=== PATIENT | female | born 1970 | race Two or more races ===

== ENCOUNTER 2020-03-14 11:20 | Outpatient (REF) | payer OTHER, SELFPAY ==
[2020-03-14 12:01] LABS: Basophils Percent Auto 0.3 % (0-2); Eosinophils Absolute Auto 0.1 X10*3/uL (0.0-0.4); Eosinophils Percent Auto 1.1 % (0-4); Hematocrit 41.1 % (37-47); Hemoglobin 12.6 g/dl (12.0-16.0); Imm Gran Abs Auto 0.04 X10*3/uL (0.00-0.03); Imm Gran Pct Auto 0.5 % (0.0-0.4); Lymphocytes Absolute Auto 2.2 X10*3/uL (1.2-4.9); MANUAL DIFF FLAG NO; Mean Corpuscular HGB Conc 30.7 g/dl (31.0-35.0); Mean Corpuscular Hemoglobin 25.6 pg (27.0-33.0); Mean Corpuscular Volume 83.5 fL (80-98); Mean Platelet Volume 10.8 fL (9.4-12.3); Monocytes Absolute Auto 0.5 X10*3/uL (0.1-1.2); Monocytes Percent Auto 5.9 % (2-11); Neutrophils Percent Auto 67.2 % (45-73); Platelet Count 283 X10*3/uL (160-400); Red Blood Count 4.92 X10*6/uL (4.20-5.50); Red Cell Distribution Width 14.6 % (11.0-16.0); White Blood Count 8.9 X10*3/uL (4.8-10.8)
[2020-03-14 12:27] LABS: Alanine Aminotransferase 16 U/L (0-31); Albumin Level 3.8 g/dL (3.5-5.0); Alkaline Phosphatase 124 U/L (39-117); Anion Gap 10 (12-20); Aspartate Amino Transferase 16 U/L (5-31); Bilirubin Total 0.3 mg/dL (0.0-1.0); Blood Urea Nitrogen 12 mg/dL (9-16); Calcium 8.9 mg/dL (8.4-10.2); Carbon Dioxide 29 mmol/L (22-29); Chloride 104 mmol/L (96-108); Cholesterol 177 mg/dL; Estimated Glomerular Filt Rate > 60; Glucose Random 119 mg/dL (60-115); HDL Cholesterol 49 mg/dL; LDL Cholesterol Calculated 108 mg/dl; Potassium 3.9 mmol/l (3.3-5.1); Sodium 139 mmol/L (135-145); Total Protein 6.8 g/dL (6.5-8.0); Triglycerides 104 mg/dL
[2020-03-14 12:49] LABS: Ferritin 17 ng/mL (10-250); Thyroid Stimulating Hormone 1.36 uIU/mL (0.32-4.0)
== END 2020-03-14 11:21 | disposition home or self-care (01) ==
LOC: HO.LAB 11:20
PROVIDERS: PCP Internal Medicine; Visit Provider Internal Medicine
DX: Z00.00 Encounter for general adult medical examination without abnormal findings (principal); D50.9 Iron deficiency anemia, unspecified; F32.89 Other specified depressive episodes; G47.33 Obstructive sleep apnea (adult) (pediatric); N95.1 Menopausal and female climacteric states
CPT/HCPCS: 36415; 80053; 80061; 82728; 84443; 85025

== ENCOUNTER 2020-07-25 13:11 | Outpatient (REF) | payer OTHER, SELFPAY ==
[2020-07-25 14:20] LABS: MANUAL DIFF FLAG NO
[2020-07-25 14:33] LABS: Basophils Percent Auto 0.4 % (0-2); Eosinophils Absolute Auto 0.1 X10*3/uL (0.0-0.4); Eosinophils Percent Auto 0.9 % (0-4); Hematocrit 41.3 % (37-47); Hemoglobin 12.8 g/dl (12.0-16.0); Imm Gran Abs Auto 0.04 X10*3/uL (0.00-0.03); Imm Gran Pct Auto 0.4 % (0.0-0.4); Lymphocytes Absolute Auto 2.7 X10*3/uL (1.2-4.9); Lymphocytes Percent Auto 26.9 % (20-40); Mean Corpuscular Hemoglobin 26.4 pg (27.0-33.0); Mean Corpuscular Volume 85.2 fL (80-98); Mean Platelet Volume 11.2 fL (9.4-12.3); Monocytes Absolute Auto 0.7 X10*3/uL (0.1-1.2); Monocytes Percent Auto 6.9 % (2-11); Neutrophils Absolute Auto 6.4 X10*3/uL (2.0-8.3); Neutrophils Percent Auto 64.5 % (45-73); Platelet Count 276 X10*3/uL (160-400); Red Blood Count 4.85 X10*6/uL (4.20-5.50); Red Cell Distribution Width 14.6 % (11.0-16.0); White Blood Count 9.9 X10*3/uL (4.8-10.8)
[2020-07-25 14:48] LABS: Alanine Aminotransferase 25 U/L (0-31); Albumin Level 3.9 g/dL (3.5-5.0); Alkaline Phosphatase 118 U/L (39-117); Anion Gap 9 (12-20); Aspartate Amino Transferase 22 U/L (5-31); Bilirubin Total 0.5 mg/dL (0.0-1.0); Blood Urea Nitrogen 9 mg/dL (9-16); C Reactive Protein 0.89 mg/dL (< or = 0.50); Calcium 8.6 mg/dL (8.4-10.2); Carbon Dioxide 28 mmol/L (22-29); Chloride 107 mmol/L (96-108); Estimated Glomerular Filt Rate > 60; Glucose Random 114 mg/dL (60-115); Potassium 3.7 mmol/L (3.3-5.1); Sodium 140 mmol/L (135-145); Total Protein 6.7 g/dL (6.5-8.0)
[2020-07-25 15:20] LABS: Erythrocyte Sedimentation Rate 9 MM/HR (0-20)
== END 2020-07-25 13:12 | disposition home or self-care (01) ==
LOC: HO.LAB 13:11
PROVIDERS: PCP Internal Medicine; Visit Provider Student in an Organized Health Care Education/Training Program
DX: M79.7 Fibromyalgia (principal); M25.50 Pain in unspecified joint; K51.90 Ulcerative colitis, unspecified, without complications; G56.03 Carpal tunnel syndrome, bilateral upper limbs; Z79.899 Other long term (current) drug therapy
CPT/HCPCS: 36415; 80053; 85025; 85652; 86140; 99212

== ENCOUNTER 2020-08-03 13:37 | Outpatient (REF) | payer OTHER, SELFPAY ==
--- NOTE | ~2020-08-03 | XR_ITS ---
EXAMINATION: XR HAND/WRIST, LEFT XR HAND/WRIST, RIGHT CLINICAL INFORMATION: Carpal tunnel syndrome. COMPARISON: None TECHNIQUE: 4 views of the right hand/wrist 4 views of the left hand/wrist. FINDINGS: Right hand/wrist: No fracture or dislocation. The carpal rows are well aligned. Joint spaces are maintained. Evidence of previous ulnar styloid fracture with corticated ossification at the tip of the ulnar styloid. Small osteophytes at the distal interphalangeal joints of the second, third, and fifth digits. Left hand/wrist: No fracture or dislocation. Alignment is anatomic. The carpal rows are well aligned. Joint spaces are maintained. Small marginal osteophytes at the distal interphalangeal joints of the second, fourth, and fifth digits. The soft tissues appear unremarkable. XR/XR hand wrist RT IMPRESSION: Unremarkable appearance of the left wrist. Evidence of prior ulnar styloid fracture of the right wrist. Mild degenerative changes of the interphalangeal joints bilaterally.
--- NOTE | ~2020-08-03 | XR_ITS ---
EXAMINATION: XR HAND/WRIST, LEFT XR HAND/WRIST, RIGHT CLINICAL INFORMATION: Carpal tunnel syndrome. COMPARISON: None TECHNIQUE: 4 views of the right hand/wrist 4 views of the left hand/wrist. FINDINGS: Right hand/wrist: No fracture or dislocation. The carpal rows are well aligned. Joint spaces are maintained. Evidence of previous ulnar styloid fracture with corticated ossification at the tip of the ulnar styloid. Small osteophytes at the distal interphalangeal joints of the second, third, and fifth digits. Left hand/wrist: No fracture or dislocation. Alignment is anatomic. The carpal rows are well aligned. Joint spaces are maintained. Small marginal osteophytes at the distal interphalangeal joints of the second, fourth, and fifth digits. The soft tissues appear unremarkable. XR/XR hand wrist LT IMPRESSION: Unremarkable appearance of the left wrist. Evidence of prior ulnar styloid fracture of the right wrist. Mild degenerative changes of the interphalangeal joints bilaterally.
== END 2020-08-03 13:38 | disposition home or self-care (01) ==
LOC: HO.XRAY 13:37
PROVIDERS: PCP Internal Medicine; Visit Provider Student in an Organized Health Care Education/Training Program
DX: G56.03 Carpal tunnel syndrome, bilateral upper limbs (principal)
CPT/HCPCS: 73110; 73130

== ENCOUNTER 2021-02-13 10:19 | Outpatient (REF) | payer OTHER, SELFPAY ==
[2021-02-13 11:23] LABS: Estimated Average Glucose 120 mg/dL; Hemoglobin A1c % 5.8 %
[2021-02-13 12:23] LABS: Alanine Aminotransferase 24 U/L (0-31); Albumin Level 3.9 g/dL (3.5-5.0); Alkaline Phosphatase 119 U/L (39-117); Anion Gap 10 (12-20); Aspartate Amino Transferase 29 U/L (5-31); Bilirubin Total 0.5 mg/dL (0.0-1.0); Blood Urea Nitrogen 9 mg/dL (9-16); Calcium 8.9 mg/dL (8.4-10.2); Carbon Dioxide 27 mmol/L (22-29); Chloride 106 mmol/L (96-108); Estimated Glomerular Filt Rate > 60; Glucose Random 98 mg/dL (60-115); Potassium 4.2 mmol/L (3.3-5.1); Sodium 139 mmol/L (135-145); Total Protein 6.8 g/dL (6.5-8.0)
== END 2021-02-13 10:20 | disposition home or self-care (01) ==
LOC: HO.LAB 10:19
PROVIDERS: PCP Internal Medicine; Visit Provider Internal Medicine
DX: F33.42 Major depressive disorder, recurrent, in full remission (principal); G47.33 Obstructive sleep apnea (adult) (pediatric); J45.902 Unspecified asthma with status asthmaticus; R73.01 Impaired fasting glucose
CPT/HCPCS: 36415; 80053; 83036

== ENCOUNTER 2021-03-07 08:19 | Day surgery (SDC) | payer OTHER, SELFPAY ==
[2021-03-01 11:23] VITALS: BMI 38.2
--- NOTE | 2021-03-06 08:58 | HO.ANESPROP2 ---
Documented by User: Dina Lunsford NP 03/06/21 08:59 HPI - Anesthesia Eval Consult details Narrative: 50yo F for Upper Endoscopy and Colonoscopy PMFSH Active Problems Active Problems: All Active Problems (Updated 03/01/21 @ 09:45 by Emily Zamora RN) Bilateral carpal tunnel syndrome (Acute) Fibromyalgia (Acute) Ulcerative colitis (Acute) Past Medical History Medical History Asthma Fibromyalgia GERD (gastroesophageal reflux disease) Sleep apnea Ulcerative colitis Surgical History Surgical History H/O colonoscopy History of Social History Social History Alcohol intake: current Alcohol intake frequency: does not drink Alcohol type: wine Patient Tobacco Use Status: Tobacco use Unknown Use of substances other than those prescribed or required for medical reasons: No Advance Directives: No Advance Directives Information Provided: Yes (informational brochure mailed) Advance Directives on File: No Meds Allergies Allergy/AdvReac Type Severity Reaction Status Date / Time shrimp Allergy Intermediate SWELLING Verified 07/25/20 13:26 cat dander [cats] Allergy Unknown Unknown Verified 03/01/21 09:41 pollen extracts Allergy Unknown Unknown Verified 03/01/21 09:41 walnut Allergy Unknown Unknown Verified 03/01/21 09:41 dog dander [dogs] AdvReac Unknown Unknown Verified 03/01/21 09:41 Home Medications Medication Instructions Recorded Confirmed Last Taken Type albuterol sulfate 90 mcg/actuation 2 puff INHALATION Q6H PRN 07/25/20 07/25/20 Unknown History aerosol inhaler (ProAir HFA) azathioprine 50 mg tablet 50 mg PO DAILY 07/25/20 07/25/20 Unknown History cholecalciferol (vitamin D3) 1,250 1,250 mcg PO QWEEK 07/25/20 07/25/20 Unknown History mcg (50,000 unit) capsule fluticasone 500 mcg-salmeterol 50 1 inh INHALATION BID 07/25/20 07/25/20 Unknown History mcg/dose blistr powdr for inhalation (Advair Diskus) fluticasone propionate 50 2 spray INTRANASAL DAILY 07/25/20 07/25/20 Unknown History mcg/actuation nasal spray,suspension (Flonase Allergy Relief) loratadine 10 mg tablet (Allergy 10 mg PO DAILY 07/25/20 07/25/20 Unknown History Relief (loratadine)) mesalamine 800 mg tablet,delayed 1,600 mg PO TID 07/25/20 07/25/20 Unknown History release (Asacol HD) montelukast 10 mg tablet 10 mg PO DAILY 07/25/20 07/25/20 Unknown History naproxen 500 mg tablet (Naprosyn) 500 mg PO BID 07/25/20 07/25/20 Unknown History omeprazole 20 mg capsule,delayed 20 mg PO BID 07/25/20 07/25/20 Unknown History release losartan 50 mg-hydrochlorothiazide 1 tab PO DAILY 03/01/21 03/01/21 Unknown History 12.5 mg tablet venlafaxine 75 mg capsule,extended 75 mg PO DAILY 03/01/21 03/01/21 Unknown History release 24 hr Exam Exam Date and Time: March 06, 2021 0858 Height,Weight and Vital Signs: Height 5 ft 4.5 in Weight 102.512 kg Pertinent Lab Results Pertinent Lab Results: Laboratory Tests 07/25/20 02/13/21 13:50 10:30 WBC 9.9 Hgb 12.8 Hct 41.3 Plt Count 276 Sodium 139 Potassium 4.2 Chloride 106 Carbon Dioxide 27 BUN 9 Creatinine 0.73 Assessment and Plan Assessment Anesthesia Assessment: Chart Reviewed Documented by User: Marilyn Spencer MD 03/07/21 10:17 [facility] Past Medical History Medical History Asthma Fibromyalgia GERD (gastroesophageal reflux disease) Sleep apnea Ulcerative colitis Surgical History Surgical History H/O colonoscopy History of History of Problems with Anesthesia: No Social History Social History Alcohol intake: current Alcohol intake frequency: does not drink Alcohol type: wine Patient Tobacco Use Status: Tobacco use Unknown Use of substances other than those prescribed or required for medical reasons: No Advance Directives: No Advance Directives Information Provided: Yes (informational brochure mailed) Advance Directives on File: No Meds Allergies Allergy/AdvReac Type Severity Reaction Status Date / Time shrimp Allergy Intermediate SWELLING Verified 07/25/20 13:26 cat dander [cats] Allergy Unknown Unknown Verified 03/01/21 09:41 pollen extracts Allergy Unknown Unknown Verified 03/01/21 09:41 walnut Allergy Unknown Unknown Verified 03/01/21 09:41 dog dander [dogs] AdvReac Unknown Unknown Verified 03/01/21 09:41 Home Medications Medication Instructions Recorded Confirmed Last Taken Type albuterol sulfate 90 mcg/actuation 2 puff INHALATION Q6H PRN 07/25/20 07/25/20 Unknown History aerosol inhaler (ProAir HFA) azathioprine 50 mg tablet 50 mg PO DAILY 07/25/20 07/25/20 Unknown History cholecalciferol (vitamin D3) 1,250 1,250 mcg PO QWEEK 07/25/20 07/25/20 Unknown History mcg (50,000 unit) capsule fluticasone 500 mcg-salmeterol 50 1 inh INHALATION BID 07/25/20 07/25/20 Unknown History mcg/dose blistr powdr for inhalation (Advair Diskus) fluticasone propionate 50 2 spray INTRANASAL DAILY 07/25/20 07/25/20 Unknown History mcg/actuation nasal spray,suspension (Flonase Allergy Relief) loratadine 10 mg tablet (Allergy 10 mg PO DAILY 07/25/20 07/25/20 Unknown History Relief (loratadine)) mesalamine 800 mg tablet,delayed 1,600 mg PO TID 07/25/20 07/25/20 Unknown History release (Asacol HD) montelukast 10 mg tablet 10 mg PO DAILY 07/25/20 07/25/20 Unknown History naproxen 500 mg tablet (Naprosyn) 500 mg PO BID 07/25/20 07/25/20 Unknown History omeprazole 20 mg capsule,delayed 20 mg PO BID 07/25/20 07/25/20 Unknown History release losartan 50 mg-hydrochlorothiazide 1 tab PO DAILY 03/01/21 03/01/21 Unknown History 12.5 mg tablet venlafaxine 75 mg capsule,extended 75 mg PO DAILY 03/01/21 03/01/21 Unknown History release 24 hr Exam Airway Mallampati Class: II TM Dist: >3cm Neck ROM: Full Loose/Missing/Broken Teeth: No Heart: RRR Lungs: CTA Assessment and Plan Assessment Anesthesia Assessment: Anesthesia Plan Discussed Final Anesthetic Review History of Problems with Anesthesia: No NPO: Yes ASA Class: III Final Preanesthetic Review: Meds/Allgs Chart Reviewed, Consent Obtained/Reviewed and Anes Risks/Benef Reviewed Patient Risk: Intermediate Procedure Risk: Intermediate Anesthetic Plan Anesthetic Plan: MAC: Disposition: Standard PACU
[2021-03-07 09:24] VITALS: BP 149/81; PULSE 77; RESP 16; TEMP 36.4; O2SAT 98
[2021-03-07 09:29] LABS: UPreg QC Valid YES; Urine Pregnancy NEGATIVE (NEGATIVE)
[2021-03-07] MEDS: Lactated Ringers 1,000 ML 100 ML IVCONT (09:38)
[2021-03-07 11:05] VITALS: BP 131/72; PULSE 72; RESP 18; TEMP 36.9; O2SAT 97
--- NOTE | 2021-03-07 11:09 | P.BOP_ITS ---
Brief Operative Note Date of Service: 03/07/21 Pre-op diagnosis: GERD, Screening, Ulcerative colitis Post-op diagnosis: other (Hiatal hernia, Colon polyp at 40cm, Ulcerative colitis) Procedure: EGD, Colonoscopy to the cecum with biopsies, hot snare polypectomy at 40cm with placement of a Resolution clip Surgeon: Kenney Harris Anesthesia: MAC Was an [employer] used for this Procedure?: No Estimated blood loss (mL): 4.0 Pathology: other (A. Ascending colon B. Transverse colon C. Descending colon D. Polyp at 40cm E. Sigmoid colon F. Rectum) Condition: stable Disposition: PACU
[2021-03-07 11:20] VITALS: BP 131/72; PULSE 72; RESP 18; TEMP 36.9; O2SAT 97
--- NOTE | 2021-03-07 19:23 | OP_ITS ---
SURGEON: Kenney Harris MD INDICATIONS: The patient presents for evaluation of gastroesophageal reflux and ulcerative colitis, and colorectal cancer screening. Full consent obtained from her for this, including risks of bleeding and perforation. PREOPERATIVE DIAGNOSIS: POSTOPERATIVE DIAGNOSIS: PROCEDURE PERFORMED: Esophagogastroduodenoscopy and colonoscopy to the cecum with multiple biopsies, snare polypectomy, and placement of a resolution clip on the polypectomy site. ESTIMATED BLOOD LOSS: COMPLICATIONS: ANESTHESIA: Monitored anesthesia care. ASSISTANTS: SPECIMENS: PREOPERATIVE DIAGNOSES: Gastroesophageal reflux, ulcerative colitis, colorectal cancer screening. POSTOPERATIVE DIAGNOSES: Gastroesophageal reflux, ulcerative colitis, colorectal cancer screening, small hiatal hernia, probable inflammatory colon polyp, rule out dysplasia, internal hemorrhoids. DESCRIPTION OF PROCEDURE: The patient was placed in the left lateral decubitus position. The Olympus video gastroscope was passed in the posterior oropharynx and upper esophagus under direct vision. The scope was passed slowly into the distal esophagus. The gastroesophageal junction appeared at 35 cm. There was no sign of any esophagitis nor Pichardo's mucosa. The scope entered into the stomach. There was a small hiatal hernia. The scope was advanced to the pylorus. The duodenum was cannulated to the descending portion. The duodenum including the bulb appeared normal without mass or ulceration. The scope was withdrawn back into the stomach. The gastric antrum and body appeared normal with good peristalsis. The scope was retroflexed visualizing the proximal stomach carefully, which appeared normal, without any sign of mass or ulceration. The scope was straightened out and withdrawn back into the esophagus. The esophageal mucosa appeared normal. The scope was withdrawn from the patient. She was turned around for colonoscopy. The digital rectal exam revealed no abnormalities. The Olympus video pediatric colonoscope was entered into the rectum and advanced easily to the cecum. Once in the cecum I did identify normal-appearing cecal pouch with appendiceal orifice and a normal-appearing ileocecal valve. The entire cecum and ileocecal valve appeared normal. The scope was then slowly withdrawn assessing all mucosal surfaces carefully. There was a very minimal changes of colitis with erythema, edema, and friability in the sigmoid colon and rectum, but there were no ulcerations. The proximal bowel appeared normal. Random biopsies were obtained in the ascending colon, transverse colon, descending colon, sigmoid colon, and rectum. At 40 cm, was an inflammatory appearing polyp on a long stalk with some ulceration on the head of the polyp. The polyp itself was approximately 10 mm to 12 mm in diameter. I placed a resolution clip at the base of the polyp with good deployment. I then used a hot snare to remove the polyp just above the clip and then the polyp was recovered by suction. There was some persistent oozing from the polypectomy site despite the previously placed clips. Another clip was deployed, but then at that point, both clips came off. The tissue was somewhat friable. Due to continued bleeding, I placed an another clip which was deployed successfully and then hemostasis was obtained. The area was observed and irrigated for at least 10 minutes and there was no sign of any active bleeding. In the rectum, scope was retroflexed visualizing some small internal hemorrhoids, but no other pathology. The rectal mucosa appeared normal. The scope was straightened out and withdrawn from the patient. She tolerated the procedure well and was returned to the recovery area in stable condition. IMPRESSION: 1. Probable inflammatory colon polyp, status post snare polypectomy with hot snare and placement of a resolution clip. 2. Rule out dysplasia. 3. Internal hemorrhoids. 4. Small hiatal hernia. PLAN: The results of the pathology will be checked. Assuming there is no dysplasia, I would recommend a repeat colonoscopy in 5 years. She was advised to continue her daily omeprazole. She was advised not to use any aspirin and NSAIDs for least 1 week. She will see me in 1 year for followup visit as well. MD NGA Cantu/JACQUELINE / [phone]
== END 2021-03-07 12:10 | disposition home or self-care (01) ==
PROVIDERS: Nurse Practitioner; PCP Internal Medicine; Visit Provider Internal Medicine
PROC: (CPT 45385; principal; 2021-03-07 09:10)
DX: Z12.11 Encounter for screening for malignant neoplasm of colon (principal); K51.30 Ulcerative (chronic) rectosigmoiditis without complications; K51.40 Inflammatory polyps of colon without complications; K64.8 Other hemorrhoids; K21.9 Gastro-esophageal reflux disease without esophagitis; R68.81 Early satiety; K44.9 Diaphragmatic hernia without obstruction or gangrene; J45.909 Unspecified asthma, uncomplicated; G47.33 Obstructive sleep apnea (adult) (pediatric); Z99.89 Dependence on other enabling machines and devices; Z79.51 Long term (current) use of inhaled steroids; Z79.899 Other long term (current) drug therapy
CPT/HCPCS: 45385; 45380; 43235; 81025; 88305

== ENCOUNTER 2021-04-23 12:39 | Outpatient (REF) | payer OTHER, SELFPAY | END 2021-04-23 12:40 | disposition home or self-care (01) | LOC: HO.HMGCLDS 12:39 | PROVIDERS: Visit Provider Internal Medicine | DX: Z20.822 Contact with and (suspected) exposure to COVID-19 (principal) | CPT/HCPCS: C9803; U0003; U0005 ==

== ENCOUNTER 2021-07-12 12:21 | Emergency (ER) | payer OTHER, SELFPAY ==
--- NOTE | ~2021-07-12 | XR_ITS ---
EXAMINATION: XR CHEST CLINICAL INFORMATION: SOB COMPARISON: None TECHNIQUE: 2 views of the chest were obtained. FINDINGS: No significant abnormality is noted involving the heart, lungs, mediastinum, bony thorax or soft tissues. XR/XR chest 2V IMPRESSION: Unremarkable chest exam.
[2021-07-12 12:24] VITALS: BP 178/94; PULSE 96; RESP 18; TEMP 36.9; O2SAT 90; BMI 33.5
--- NOTE | 2021-07-12 12:54 | ECG_ITS ---
Test Reason : ASTHMA Blood Pressure : / mmHG Vent. Rate : 072 BPM Atrial Rate : 072 BPM P-R Int : 160 ms QRS Dur : 096 ms QT Int : 382 ms P-R-T Axes : 041 070 044 degrees QTc Int : 418 ms Normal sinus rhythm with sinus arrhythmia Normal ECG When compared with ECG of 02-JUL-2017 12:10, No significant change was found Referred By: Mercy Olivarez Electronically Signed By:LUIS VÁSQUEZ MD
[2021-07-12] MEDS: methylPREDNISolone Sod Succ 125 MG/2 ML VIAL IVPUSH (13:12)
[2021-07-12] MEDS: 0.9 % Sodium Chloride 1,000 ML 999 ML IV (13:12)
[2021-07-12 13:13] LABS: MANUAL DIFF FLAG NO
[2021-07-12 13:17] LABS: Basophils Percent Auto 0.4 % (0-2); Eosinophils Absolute Auto 0.1 X10*3/uL (0.0-0.4); Hematocrit 41.6 % (37.0-47.0); Hemoglobin 12.6 g/dl (12.0-16.0); Imm Gran Abs Auto 0.02 X10*3/uL (0.00-0.03); Imm Gran Pct Auto 0.2 % (0.0-0.4); Lymphocytes Absolute Auto 2.7 X10*3/uL (1.2-4.9); Lymphocytes Percent Auto 26.7 % (20-40); Mean Corpuscular HGB Conc 30.3 g/dl (31.0-35.0); Mean Corpuscular Hemoglobin 26.3 pg (27.0-33.0); Mean Corpuscular Volume 86.8 fL (80.0-98.0); Mean Platelet Volume 10.6 fL (9.4-12.3); Monocytes Absolute Auto 0.6 X10*3/uL (0.1-1.2); Monocytes Percent Auto 6.1 % (2-11); Neutrophils Absolute Auto 6.6 x10*3/uL (2.0-8.3); Neutrophils Percent Auto 65.6 % (45-73); Platelet Count 245 X10*3/uL (160-400); Red Blood Count 4.79 X10*6/uL (4.20-5.50); Red Cell Distribution Width 14.4 % (11.0-16.0)
[2021-07-12 13:22] LABS: Venous Blood Gas Refer to POC result
[2021-07-12 13:23] LABS: VBG Base Excess -0.1 mmol/L; VBG HCO3 26 mmol/L (22-26); VBG pCO2 49 mmHg; VBG pH 7.33 (7.32-7.43); VBG pO2 44 mmHg
[2021-07-12 13:28] LABS: D Dimer High Sensitivity 222 NG/ML
[2021-07-12 13:30] LABS: Alanine Aminotransferase 20 U/L (0-31); Albumin Level 3.8 g/dL (3.5-5.0); Alkaline Phosphatase 110 U/L (39-117); Anion Gap 13 (12-20); Aspartate Amino Transferase 21 U/L (5-31); Bilirubin Total 0.4 mg/dL (0.0-1.0); Blood Urea Nitrogen 12 mg/dL (9-16); Calcium 8.8 mg/dL (8.4-10.2); Carbon Dioxide 25 mmol/L (22-29); Chloride 107 mmol/L (96-108); Creatinine Clr Calc Pharmacy 95.1; Estimated Glomerular Filt Rate > 60; Glucose Random 122 mg/dL (60-115); Sodium 141 mmol/L (135-145); Total Protein 6.8 g/dL (6.5-8.0)
[2021-07-12 13:35] VITALS: PULSE 71; RESP 22; O2SAT 100
[2021-07-12] MEDS: Albuterol/Iprat 2.5/0.5MG 3 ML AMPUL.NEB INHALE (13:35)
[2021-07-12 13:37] LABS: B Type Natriuretic Peptide 40 pg/mL (<100); HCG Quantitative < 2 mIU/mL; Troponin-I High Sensitivity < 3.5 ng/L (<3.5-17.0)
[2021-07-12 14:06] VITALS: BP 152/78; PULSE 86; RESP 18; O2SAT 99
--- NOTE | 2021-07-12 14:08 | PC.NURSE ---
moderate air movement and faight exp wheeze. nsr on monitor. pt reports feeling better. awaits repeat troponin.
[2021-07-12 14:58] LABS: COVID-19 Test Negative (Negative); IDNOW Serial# 16C4AD1C
--- NOTE | 2021-07-12 14:59 | ED_ITS ---
HPI - Asthma General Chief Complaint: Asthma <DEBBIE Kay Last Filed: 07/12/21 17:20> Stated Complaint: Asthma/ Diff Breathing Chest Pain <DEBBIE Kay Last Filed: 07/12/21 17:20> Time Seen by Provider: 07/12/21 12:34 <DEBBIE Kay Last Filed: 07/12/21 17:20> Source: patient <DEBBIE Kay Last Filed: 07/12/21 17:20> Mode of arrival: ambulatory <DEBBIE Kay - Last Filed: 07/12/21 17:20> Limitations: no limitations <DEBBIE Kay Last Filed: 07/12/21 17:20> History of Present Illness HPI Narrative: 50-year-old female with a past medical history of asthma, hypertension, fibromyalgia, colitis, who uses a CPAP at night, presents for sudden onset of dyspnea. Patient was driving, and had chest pain and felt short of breath. She tried her albuterol inhaler 3 separate times, but it did not work. <DEBBIE Kay - Last Filed: 07/12/21 17:20> MD complaint: asthma attack , shortness of breath and wheezing <DEBBIE Kay Last Filed: 07/12/21 17:20> Onset (ago): hour(s) (1) <DEBBIE Kay - Last Filed: 07/12/21 17:20> Severity: severe <DEBBIE Kay - Last Filed: 07/12/21 17:20> Context: none known <DEBBIE Kay Last Filed: 07/12/21 17:20> Associated symptoms: chest pain <DEBBIE Kay Last Filed: 07/12/21 17:20> Treatments Prior to Arrival: inhaled bronchodilator <DEBBIE Kay Last Filed: 07/12/21 17:20> Related Data Current Asthma Therapy: inhaled bronchodilator and inhaled steroid <DEBBIE Kay Last Filed: 07/12/21 17:20> Home Medications: Home Medications Medication Instructions Recorded Confirmed albuterol sulfate 90 mcg/actuation 2 puff INHALATION Q6H PRN 07/25/20 07/25/20 aerosol inhaler (ProAir HFA) azathioprine 50 mg tablet 50 mg PO DAILY 07/25/20 07/25/20 cholecalciferol (vitamin D3) 1,250 1,250 mcg PO QWEEK 07/25/20 07/25/20 mcg (50,000 unit) capsule fluticasone 500 mcg-salmeterol 50 1 inh INHALATION BID 07/25/20 07/25/20 mcg/dose blistr powdr for inhalation (Advair Diskus) fluticasone propionate 50 2 spray INTRANASAL DAILY 07/25/20 07/25/20 mcg/actuation nasal spray,suspension (Flonase Allergy Relief) loratadine 10 mg tablet (Allergy 10 mg PO DAILY 07/25/20 07/25/20 Relief (loratadine)) mesalamine 800 mg tablet,delayed 1,600 mg PO TID 07/25/20 07/25/20 release (Asacol HD) montelukast 10 mg tablet 10 mg PO DAILY 07/25/20 07/25/20 naproxen 500 mg tablet (Naprosyn) 500 mg PO BID 07/25/20 07/25/20 omeprazole 20 mg capsule,delayed 20 mg PO BID 07/25/20 07/25/20 release losartan 50 mg-hydrochlorothiazide 1 tab PO DAILY 03/01/21 03/01/21 12.5 mg tablet venlafaxine 75 mg capsule,extended 75 mg PO DAILY 03/01/21 03/01/21 release 24 hr Previous Rx's Medication Instructions Recorded amitriptyline 50 mg tablet 50 mg PO BEDTIME #30 tab 07/25/20 prednisone 20 mg tablet 60 mg PO DAILY 5 Days #15 tab 07/12/21 <DEBBIE Kay - Last Filed: 07/12/21 17:20> Allergies/Adverse Reactions: Allergies Allergy/AdvReac Type Severity Reaction Status Date / Time shrimp Allergy Intermediate SWELLING Verified 07/25/20 13:26 cat dander [cats] Allergy Unknown Unknown Verified 03/01/21 09:41 pollen extracts Allergy Unknown Unknown Verified 03/01/21 09:41 walnut Allergy Unknown Unknown Verified 03/01/21 09:41 dog dander [dogs] AdvReac Unknown Unknown Verified 03/01/21 09:41 <DEBBIE Kay - Last Filed: 07/12/21 17:20> Review of Systems Constitutional: Constitutional: Denies body ache(s), Denies chills, Denies fatigue, Denies fever(s), Reports headache(s), Denies malaise and Denies weakness <Mercy Olivarez [facility] Last Filed: 07/12/21 17:20> Eyes: Eyes: Denies diplopia <Mercy Olivarez [facility] Last Filed: 07/12/21 17:20> ENT: Denies vertigo, Denies dizziness, Denies otalgia, Reports headache(s), Denies mouth pain, Denies post nasal drip, Denies sinus pain, Denies sinus pressure, Denies sore throat and Denies throat swelling <Mercy Olivarez [facility] Last Filed: 07/12/21 17:20> Cardiovascular: Cardiovascular: Reports chest pain, Denies syncope, Denies leg edema, Denies lightheadedness, Denies Loss of Consciousness, Denies palpitations and Reports dyspnea <DEBBIE Kay Last Filed: 2 17:20> Respiratory: Respiratory: Denies chest congestion, Denies cough, Reports pain with cough, Reports dyspnea and Reports wheezing <Mercy Olivarez [facility] Last Filed: 07/12/21 17:20> Gastrointestinal: Gastrointestinal: Denies abdominal pain, Denies h ematochezia, Denies constipation, Denies diarrhea and Denies vomiting <Mercy Olivarez [facility] Last Filed: 07/12/21 17:20> Musculoskeletal: Musculoskeletal: Reports no additional musculoskeletal complaints <Mercy Olivarez [facility] Last Filed: 07/12/21 17:20> Neurologic: Denies confusion, Denies vertigo, Denies dizziness, Denies syncope, Reports headache(s) and Denies weakness <Mercy Olivarez [facility] Last Filed: 07/12/21 17:20> Psychiatric: Psychiatric: Denies anxiety, Denies confusion and Denies depression <DEBBIE Kay Last Filed: 07/12/21 17:20> Endocrine: Endocrine: Denies fatigue and Denies palpitations <DEBBIE Kay Last Filed: 07/12/21 17:20> Allergic/Immunologic: Allergic/Immunologic: Denies throat swelling and Reports wheezing <DEBBIE Kay - Last Filed: 07/12/21 17:20> [facility] Past Medical History Medical History: Medical History Asthma Fibromyalgia GERD (gastroesophageal reflux disease) Sleep apnea Ulcerative colitis <DEBBIE Kay - Last Filed: 07/12/21 17:20> Surgical History: Surgical History H/O colonoscopy History of <DEBBIE Kay - Last Filed: 07/12/21 17:20> Social History Social History: Social History Alcohol intake: never Patient Tobacco Use Status: Never used Tobacco Use of substances other than those prescribed or required for medical reasons: No Advance Directives: No Advance Directives Information Provided: No <DEBBIE Kay Last Filed: 07/12/21 17:20> Physical Exam Vital Signs: Vital Signs: Last Vital Signs Temp 98.4 F 07/12/21 12:24 Pulse 82 07/12/21 17:42 Resp 19 07/12/21 17:42 BP 149/82 H 07/12/21 17:42 Pulse Ox 97 07/12/21 17:42 BMI result Body Mass Index 33.5 <DEBBIE Kay - Last Filed: 07/12/21 17:20> Const: General: alert, awake and acute distress respiratory; No confusion <DEBBIE Kay - Last Filed: 07/12/21 17:20> Nutritional Appearance: obese <DEBBIE Kay - Last Filed: 07/12/21 17:20> Orientation/consciousness: patient oriented x3 and No confusion <DEBBIE Kay - Last Filed: 07/12/21 17:20> Limitations: no limitations <DEBBIE Kay Last Filed: 07/12/21 17:20> HEENT: Head: Yes normal to inspection, Yes normocephalic and Yes atraumatic <DEBBIE Kay Last Filed: 07/12/21 17:20> Ears: hearing grossly normal bilaterally, external ears normal, TM's normal bilaterally and EAC's normal <DEBBIE Kay - Last Filed: 07/12/21 17:20> General nose exam: Normal external nose present <Mercy Olivarez [facility] Last Filed: 07/12/21 17:20> Face and sinus: Yes normal facial exam and Yes sinuses nontender <Mercy Olivarez [facility] Last Filed: 07/12/21 17:20> Mouth: Normal oral and palatal mucosa present <Mercy Olivarez [facility] Last Filed: 07/12/21 17:20> Throat: Yes posterior oropharynx normal <Mercy Olivarez [facility] Last Filed: 07/12/21 17:20> Eyes: Conjunctivae: conjunctivae normal <Mercy Olivarez [facility] Last Filed: 07/12/21 17:20> Pupils: Equal, round and reactive pupils present <Mercy Olivarez [facility] Last Filed: 07/12/21 17:20> EOM: EOMs intact bilaterally <Mercy Olivarez [facility] Last Filed: 07/12/21 17:20> Neck: Neck: Yes full ROM, Yes no lymphadenopathy and Yes supple <Mercy Olivarez [facility] Last Filed: 07/12/21 17:20> Resp: Effort & Inspection: able to speak in complete sentences, no audible wheezes, Actively coughing, no grunting, labored, no nasal flaring, no paradoxical thoraco-abdom movements, no pursed lip breathing, no retractions and tachypneic <Mercy Olivarez [facility] Last Filed: 07/12/21 17:20> Auscultation: not clear to auscultation bilaterally, no crackles, no rales, rhonchi, wheezes and diminished lung sounds <Mercy Olivarez [facility] Last Filed: 07/12/21 17:20> Cardio: Rate: regular rate <Mercy Olivarez [facility] Last Filed: 07/12/21 17:20> Rhythm: regular rhythm <Mercy Olivarez [facility] Last Filed: 07/12/21 17:20> Heart sounds: S1 normal heart sound present and S2 normal heart sound present <Mrecy Olivarez [facility] Last Filed: 07/12/21 17:20> GI: Inspection: Yes normal to inspection <Mercy Olivarez [facility] Last Filed: 07/12/21 17:20> Palpation (GI): Soft to palpation, nontender, no guarding and not rigid <DEBBIE Kay - Last Filed: 07/12/21 17:20> Percussion: Yes normal to percussion <DEBBIE Kay Last Filed: 0 07/12/21 17:20> Auscultation: normal bowel sounds <DEBBIE Kay - Last Filed: 07/12/21 17:20> Skin: General skin exam: no rashes or lesions noted <DEBBIE Kay Last Filed: 07/12/21 17:20> Neuro: General: patient oriented x3 and No confusion <DEBBIE Kay - Last Filed: 07/12/21 17:20> Cranial nerves: Yes Equal, round and reactive pupils present <DEBBIE Kay - Last Filed: 07/12/21 17:20> Extrem: General: Yes normal to inspection and Yes full ROM <DEBBIE Kay Last Filed: 07/12/21 17:20> Psych: Appearance: grossly normal <DEBBIE Kay Last Filed: 07/12/21 17:20> Affect: normal affect <DEBBIE Kay Last Filed: 07/12/21 17:20> Attitude: cooperative <DEBBIE Kay - Last Filed: 07/12/21 17:20> Thought process: Normal thought process present <DEBBIE Kay Last Filed: 07/12/21 17:20> Course Course Course Narrative: 50-year-old female presents with dyspnea, wheezing, and chest pain that started 30 minutes prior to arrival. On exam, patient initially mildly tachypneic at respiration rate of 22, oxygen saturation 90%. Patient placed on 2 L of oxygen oxygen saturation 100%. Lungs diminished with rhonchi and wheezes scattered throughout. EKG shows normal sinus, initial troponin is not elevated. No leukocytosis, normal venous blood gas. BNP is 40. Patient is COVID negative. She is not . D-dimer is 222. Discussed ddimer range with Dr Mata; patient has no risk factors for PE, she scores ZERO on [place]. <DEBBIE Kay Last Filed: 07/12/21 17:20> Reevaluation(s) Reevaluation #1: On re-examine, after nebulizer treatment, patient is still wheezing and rhonchorous, but is moving more air and feels better. She is now off oxygen satting 98%. Will get repeat troponin, if negative will treat as asthma exacerbation sent home with inhalers and prednisone. <DEBBIE Kay - Last Filed: 07/12/21 17:20> Reevaluation #2: Repeat troponin is negative, patient is satting 99% on room air. Patient is moving much more air, but is still mildly wheezy and squeaking on right upper and lower lung navarrete. Counseled patient to return to emergency room if she has worsening shortness of breath, chest pain, or any other new or concerning symptoms. Counseled patient to start prednisone tomorrow, as she had her Solu-Medrol today. Counseled patient to take 2 puffs of albuterol inhaler every 4 hours for the next 4 5 days. Patient states she has just filled her albuterol inhaler, and she has enough and does not need a new prescription. Counseled patient to call her primary care provider tomorrow, because her asthma needs to be re-evaluated, she may need referral to tongue and groove machine operator <DEBBIE Kay - Last Filed: 07/12/21 17:20> MDM - Asthma Medical Records Attestation: I reviewed the patient's medical records. <DEBBIE Kay - Last Filed: 07/12/21 17:20> Lab Data Attestation: I reviewed the patient's lab results. <DEBBIE Kay - Last Filed: 07/12/21 17:20> Result diagrams: : 07/12/21 13:07 07/12/21 13:07 <DEBBIE Kay - Last Filed: 07/12/21 17:20> Labs: Lab Results 07/12/21 07/12/21 07/12/21 Range/Units 13:07 13:07 13:07 WBC 10.0 (4.8-10.8) X10*3/uL RBC 4.79 (4.20-5.50) X10*6/uL Hgb 12.6 (12.0-16.0) g/dl Hct 41.6 (37.0-47.0) % MCV 86.8 (80.0-98.0) fL MCH 26.3 L (27.0-33.0) pg MCHC 30.3 L (31.0-35.0) g/dl RDW 14.4 (11.0-16.0) % Plt Count 245 (160-400) X10*3/uL MPV 10.6 (9.4-12.3) fL Immature Gran % (Auto) 0.2 (0.0-0.4) % Neut % (Auto) 65.6 (45-73) % Lymph % (Auto) 26.7 (20-40) % Lyon % (Auto) 6.1 (2-11) % Eos % (Auto) 1.0 (0-4) % Baso % (Auto) 0.4 (0-2) % Lymph # (Auto) 2.7 (1.2-4.9) X10*3/uL Lyon # (Auto) 0.6 (0.1-1.2) X10*3/uL Eos # (Auto) 0.1 (0.0-0.4) X10*3/uL Baso # (Auto) 0.0 (0.0-0.2) X10*3/uL Abs Immat Gran (auto) 0.02 (0.00-0.03) X10*3/uL Absolute Neuts (auto) 6.6 (2.0-8.3) x10*3/uL Absolute Nucleated RBC 0.000 (0.0-0.012) X10*3/uL Nucleated RBC % (auto) 0.0 (0.0-0.2) /100WBC D-Dimer High Sensitivty 222 NG/ML VBG pH (7.32-7.43) VBG pCO2 mmHg VBG pO2 mmHg VBG HCO3 (22-26) mmol/L VBG O2 Saturation % VBG Base Excess mmol/L Sodium (135-145) mmol/L Potassium (3.3-5.1) mmol/L Chloride (96-108) mmol/L Carbon Dioxide (22-29) mmol/L Anion Gap (12-20) BUN (9-16) mg/dL Creatinine (0.5-1.4) mg/dL Estim Creat Clear Calc Estimated GFR Random Glucose (60-115) mg/dL Calcium (8.4-10.2) mg/dL Total Bilirubin (0.0-1.0) mg/dL AST (5-31) U/L ALT (0-31) U/L Alkaline Phosphatase (39-117) U/L Troponin I High Sens < 3.5 (<3.5-17.0) ng/L B-Natriuretic Peptide 40 (<100) pg/mL Total Protein (6.5-8.0) g/dL Albumin (3.5-5.0) g/dL Beta HCG, Quant mIU/mL Urine Color Urine Appearance Urine pH (5.0-8.0) Ur Specific [place] (1.005-1.025) Urine Protein (NEG-TRACE) MG/DL Urine Glucose (UA) (NEG) MG/DL Urine Ketones (NEG) MG/DL Urine Blood (NEG) Urine Nitrite (NEG) Ur Leukocyte Esterase (NEG) Urine Test (NEGATIVE) COVID-19 ([facility]) (Negative) COVID-19 Clin Com 07/12/21 07/12/21 07/12/21 Range/Units 13:07 13:10 14:23 WBC (4.8-10.8) X10*3/uL RBC (4.20-5.50) X10*6/uL Hgb (12.0-16.0) g/dl Hct (37.0-47.0) % MCV (80.0-98.0) fL MCH (27.0-33.0) pg MCHC (31.0-35.0) g/dl RDW (11.0-16.0) % Plt Count (160-400) X10*3/uL MPV (9.4-12.3) fL Immature Gran % (Auto) (0.0-0.4) % Neut % (Auto) (45-73) % Lymph % (Auto) (20-40) % Lyon % (Auto) (2-11) % Eos % (Auto) (0-4) % Baso % (Auto) (0-2) % Lymph # (Auto) (1.2-4.9) X10*3/uL Lyon # (Auto) (0.1-1.2) X10*3/uL Eos # (Auto) (0.0-0.4) X10*3/uL Baso # (Auto) (0.0-0.2) X10*3/uL Abs Immat Gran (auto) (0.00-0.03) X10*3/uL Absolute Neuts (auto) (2.0-8.3) x10*3/uL Absolute Nucleated RBC (0.0-0.012) X10*3/uL Nucleated RBC % (auto) (0.0-0.2) /100WBC D-Dimer High Sensitivty NG/ML VBG pH 7.33 (7.32-7.43) VBG pCO2 49 mmHg VBG pO2 44 mmHg VBG HCO3 26 (22-26) mmol/L VBG O2 Saturation 69.0 % VBG Base Excess -0.1 mmol/L Sodium 141 (135-145) mmol/L Potassium 4.0 (3.3-5.1) mmol/L Chloride 107 (96-108) mmol/L Carbon Dioxide 25 (22-29) mmol/L Anion Gap 13 (12-20) BUN 12 (9-16) mg/dL Creatinine 0.77 (0.5-1.4) mg/dL Estim Creat Clear Calc 95.1 Estimated GFR > 60 Random Glucose 122 H (60-115) mg/dL Calcium 8.8 (8.4-10.2) mg/dL Total Bilirubin 0.4 (0.0-1.0) mg/dL AST 21 (5-31) U/L ALT 20 (0-31) U/L Alkaline Phosphatase 110 (39-117) U/L Troponin I High Sens (<3.5-17.0) ng/L B-Natriuretic Peptide (<100) pg/mL Total Protein 6.8 (6.5-8.0) g/dL Albumin 3.8 (3.5-5.0) g/dL Beta HCG, Quant < 2 mIU/mL Urine Color Urine Appearance Urine pH (5.0-8.0) Ur Specific [place] (1.005-1.025) Urine Protein (NEG-TRACE) MG/DL Urine Glucose (UA) (NEG) MG/DL Urine Ketones (NEG) MG/DL Urine Blood (NEG) Urine Nitrite (NEG) Ur Leukocyte Esterase (NEG) Urine Test (NEGATIVE) COVID-19 ([facility]) Negative (Negative) COVID-19 Clin Com See Note 07/12/21 07/12/21 07/12/21 Range/Units 15:35 15:35 16:22 WBC (4.8-10.8) X10*3/uL RBC (4.20-5.50) X10*6/uL Hgb (12.0-16.0) g/dl Hct (37.0-47.0) % MCV (80.0-98.0) fL MCH (27.0-33.0) pg MCHC (31.0-35.0) g/dl RDW (11.0-16.0) % Plt Count (160-400) X10*3/uL MPV (9.4-12.3) fL Immature Gran % (Auto) (0.0-0.4) % Neut % (Auto) (45-73) % Lymph % (Auto) (20-40) % Lyon % (Auto) (2-11) % Eos % (Auto) (0-4) % Baso % (Auto) (0-2) % Lymph # (Auto) (1.2-4.9) X10*3/uL Lyon # (Auto) (0.1-1.2) X10*3/uL Eos # (Auto) (0.0-0.4) X10*3/uL Baso # (Auto) (0.0-0.2) X10*3/uL Abs Immat Gran (auto) (0.00-0.03) X10*3/uL Absolute Neuts (auto) (2.0-8.3) x10*3/uL Absolute Nucleated RBC (0.0-0.012) X10*3/uL Nucleated RBC % (auto) (0.0-0.2) /100WBC D-Dimer High Sensitivty NG/ML VBG pH (7.32-7.43) VBG pCO2 mmHg VBG pO2 mmHg VBG HCO3 (22-26) mmol/L VBG O2 Saturation % VBG Base Excess mmol/L Sodium (135-145) mmol/L Potassium (3.3-5.1) mmol/L Chloride (96-108) mmol/L Carbon Dioxide (22-29) mmol/L Anion Gap (12-20) BUN (9-16) mg/dL Creatinine (0.5-1.4) mg/dL Estim Creat Clear Calc Estimated GFR Random Glucose (60-115) mg/dL Calcium (8.4-10.2) mg/dL Total Bilirubin (0.0-1.0) mg/dL AST (5-31) U/L ALT (0-31) U/L Alkaline Phosphatase (39-117) U/L Troponin I High Sens < 3.5 (<3.5-17.0) ng/L B-Natriuretic Peptide (<100) pg/mL Total Protein (6.5-8.0) g/dL Albumin (3.5-5.0) g/dL Beta HCG, Quant mIU/mL Urine Color YELLOW Urine Appearance CLEAR Urine pH 7.0 (5.0-8.0) Ur Specific [place] 1.015 (1.005-1.025) Urine Protein NEG (NEG-TRACE) MG/DL Urine Glucose (UA) NEG (NEG) MG/DL Urine Ketones NEG (NEG) MG/DL Urine Blood NEG (NEG) Urine Nitrite NEG (NEG) Ur Leukocyte Esterase NEG (NEG) Urine Test NEGATIVE (NEGATIVE) COVID-19 ([facility]) (Negative) COVID-19 Clin Com <DEBBIE Kay - Last Filed: 07/12/21 17:20> ECG Data Interpretation: Normal axis, sinus at a rate of 72, urine will 160, QRS 96, QTC 418. No ST depressions or elevations, no T-wave abnormalities. <DEBBIE Kay - Last Filed: 07/12/21 17:20> Discharge Plan Discharge Clinical Impression: Asthma with acute exacerbation <DEBBIE Kay - Last Filed: 07/12/21 17:20> Patient Disposition: Home, Self-Care <DEBBIE Kay - Last Filed: 07/12/21 17:20> Instructions: Allergies (ED), Bronchospasm (ED) <DEBBIE Kay - Last Filed: 07/12/21 17:20> Additional Instructions: Please fill your prescription for prednisone and started tomorrow. Please take 2 puffs of albuterol inhaler every 4 hours for the next 4-5 days while you are awake. Please call your primary care provider for follow-up appointment tomorrow morning. They may want to refer you to a lung doctor, called a tongue and groove machine operator for evaluation of your asthma you have worsening shortness of breath or chest pain, return immediately to emergency room. Por favor surta garcias receta de prednisona y comience ma?henry. [place] 2 inhalaciones del inhalador de albuterol cada 4 horas sarita los pr?ximos 4 a 5 d?as mientras est? despierto. Llame a garcias proveedor de atenci?n primaria para jayshree danny de seguimiento ma?henry por la ma?henry. Es posible que deseen derivarlo a un m?dico especialista en pulmones, llamado neum?logo, para que eval?e garcias asma. Si tiene dificultad para respirar o dolor en el pecho que empeoran, regrese de inmediato a la christo de emergencias. <DEBBIE Kay - Last Filed: 07/12/21 17:20> Prescriptions: New prednisone 20 mg tablet 60 mg PO DAILY 5 Days Qty: 15 0RF No Action venlafaxine 75 mg capsule,extended release 24hr 75 mg PO DAILY 0RF losartan-hydrochlorothiazide 50-12.5 mg tablet 1 tab PO DAILY 0RF azathioprine 50 mg tablet 50 mg PO DAILY 0RF omeprazole 20 mg capsule,delayed release(DR/EC) 20 mg PO BID 0RF fluticasone propionate [Flonase Allergy Relief] 50 mcg/actuation spray,suspension 2 spray intranasal DAILY 0RF Rx Instructions: administer into each nostril loratadine [Allergy Relief (loratadine)] 10 mg tablet 10 mg PO DAILY 0RF fluticasone propion-salmeterol [Advair Diskus] 500-50 mcg/dose blister with device 1 inh inhalation BID 0RF albuterol sulfate [ProAir HFA] 90 mcg/actuation HFA aerosol inhaler 2 puff inhalation Q6H PRN (Reason: Wheezing) 0RF naproxen [Naprosyn] 500 mg tablet 500 mg PO BID 0RF cholecalciferol (vitamin D3) 1,250 mcg (50,000 unit) capsule 1,250 mcg PO QWEEK 0RF montelukast 10 mg tablet 10 mg PO DAILY 0RF mesalamine [Asacol HD] 800 mg tablet,delayed release (DR/EC) 1,600 mg PO TID 0RF Rx Instructions: must be taken on empty stomach; no food 1 hr after or 2-3 hrs before dose amitriptyline 50 mg tablet 50 mg PO BEDTIME Qty: 30 5RF <DEBBIE Kay - Last Filed: 07/12/21 17:20> Interventions: ED Discharge Assessment Last Done: 07/12/21 18:16 <DEBBIE Kay - Last Filed: 07/12/21 17:20> Discharge Date/Time: 07/12/21 18:17 <DEBBIE Kay - Last Filed: 07/12/21 17:20> Print Language: Kazakh <DEBBIE Kay - Last Filed: 07/12/21 17:20>
[2021-07-12] MEDS: Ibuprofen 800 MG TABLET PO (15:25)
[2021-07-12] MEDS: Acetaminophen 325 MG TABLET 975 MG PO (15:25)
[2021-07-12 15:35] VITALS: BP 145/68; PULSE 77; RESP 18; O2SAT 99
[2021-07-12 15:42] LABS: Appearance Urine CLEAR; Color Urine YELLOW; Glucose Urine UA NEG (NEG); Leukocyte Esterase Urine NEG (NEG); Nitrite Urine NEG (NEG); Specific Gravity - Urine 1.015 (1.005-1.025); Urine Blood NEG (NEG); Urine Ketones NEG (NEG); Urine Protein NEG (NEG-TRACE)
[2021-07-12 15:44] LABS: UPreg QC Valid YES; Urine Pregnancy NEGATIVE (NEGATIVE)
[2021-07-12 16:52] LABS: Troponin-I High Sensitivity < 3.5 ng/L (<3.5-17.0)
[2021-07-12 17:42] VITALS: BP 149/82; PULSE 82; RESP 19; O2SAT 97
== END 2021-07-12 18:17 | disposition home or self-care (01) ==
PROVIDERS: Physician Assistant; Emergency Provider Emergency Medicine; PCP Internal Medicine
DX: J45.901 Unspecified asthma with (acute) exacerbation (principal); R00.0 Tachycardia, unspecified; R06.02 Shortness of breath; Z20.822 Contact with and (suspected) exposure to COVID-19; I10 Essential (primary) hypertension
CPT/HCPCS: 36415; 71046; 80053; 81003; 81025; 82803; 83880; 84484; 84702; 85025; 85379; 87635; 93005; 94640; 96361; 96374; 99284; 99285; J2930

== ENCOUNTER → 2021-07-27 12:34 | Outpatient (BNVA) | payer OTHER, SELFPAY | PROVIDERS: PCP Internal Medicine; Visit Provider Nurse Practitioner Family | DX: M79.7 Fibromyalgia (principal); G56.03 Carpal tunnel syndrome, bilateral upper limbs; K51.90 Ulcerative colitis, unspecified, without complications | CPT/HCPCS: 99212 ==

== ENCOUNTER → 2021-09-06 11:26 | Outpatient (BNVA) | payer OTHER, SELFPAY | PROVIDERS: PCP Internal Medicine; Visit Provider Internal Medicine Pulmonary Disease | DX: J45.909 Unspecified asthma, uncomplicated (principal) ==

== ENCOUNTER 2021-09-06 12:01 | Outpatient (REF) | payer OTHER, SELFPAY ==
[2021-09-06 12:44] LABS: MANUAL DIFF FLAG NO
[2021-09-06 13:35] LABS: Basophils Percent Auto 0.2 % (0-2); Eosinophils Absolute Auto 0.1 X10*3/uL (0.0-0.4); Eosinophils Percent Auto 0.7 % (0-4); Hematocrit 42.4 % (37.0-47.0); Hemoglobin 13.4 g/dl (12.0-16.0); Imm Gran Abs Auto 0.04 X10*3/uL (0.00-0.03); Imm Gran Pct Auto 0.3 % (0.0-0.4); Lymphocytes Absolute Auto 2.6 X10*3/uL (1.2-4.9); Lymphocytes Percent Auto 20.6 % (20-40); Mean Corpuscular HGB Conc 31.6 g/dl (31.0-35.0); Mean Corpuscular Hemoglobin 26.5 pg (27.0-33.0); Mean Corpuscular Volume 83.8 fL (80.0-98.0); Mean Platelet Volume 10.7 fL (9.4-12.3); Monocytes Absolute Auto 0.8 X10*3/uL (0.1-1.2); Monocytes Percent Auto 5.9 % (2-11); Neutrophils Absolute Auto 9.1 x10*3/uL (2.0-8.3); Neutrophils Percent Auto 72.3 % (45-73); Platelet Count 252 X10*3/uL (160-400); Red Blood Count 5.06 X10*6/uL (4.20-5.50); Red Cell Distribution Width 14.2 % (11.0-16.0); White Blood Count 12.7 X10*3/uL (4.8-10.8)
--- NOTE | 2021-09-06 15:42 | PFT_ITS ---
INDICATION: Dyspnea. SPIROMETRY: FEV1 to FVC of 68% with an FEV1 of 1.79 L, which is 61% predicted, an FVC of 2.64 L, which is 73% predicted. The patient did have a significant response to bronchodilators noted. FEF 25-75 decreased to 26% predicted pre-bronchodilators and did improve to 60% post-bronchodilators. Maximum voluntary ventilation 50% predicted. LUNG VOLUMES: Total lung capacity 90% predicted. Expiratory reserve volume of 16% predicted, likely secondary to an elevated BMI. DIFFUSION CAPACITY: DLCO 94% predicted. COMPARISONS: None available. INTERPRETATION: There is an obstructive ventilatory defect consistent with moderate COPD. The patient did have a significant response to bronchodilators and has significant small airways disease. The patient also has a moderate decrease in maximum voluntary ventilation secondary to likely deconditioning and also worsening dynamic inspiratory capacity. Lung volumes with significant air trapping due to the COPD in addition to a significantly low expiratory reserve volume secondary to an elevated BMI. Diffusion capacity is within normal limits. Clinical correlation warranted. MD MERCEDEZ Perkins/JAQCUELINE / [id number]
== END 2021-09-06 12:02 | disposition home or self-care (01) ==
LOC: HO.RESP 12:01
PROVIDERS: PCP Internal Medicine; Visit Provider Internal Medicine Pulmonary Disease
DX: R06.00 Dyspnea, unspecified (principal); J45.909 Unspecified asthma, uncomplicated; Z91.09 Other allergy status, other than to drugs and biological substances
CPT/HCPCS: 36415; 82785; 85025; 86003; 94060; 94727; 94729; 99202

== ENCOUNTER → 2021-09-26 09:05 | Outpatient (BNVA) | payer OTHER, SELFPAY | PROVIDERS: PCP Internal Medicine; Visit Provider Internal Medicine Pulmonary Disease | DX: J45.909 Unspecified asthma, uncomplicated (principal); Z91.09 Other allergy status, other than to drugs and biological substances | CPT/HCPCS: 99212 ==

== ENCOUNTER → 2021-11-02 09:35 | Outpatient (BNVA) | payer OTHER, SELFPAY | PROVIDERS: PCP Internal Medicine; Visit Provider Internal Medicine Pulmonary Disease | DX: J45.909 Unspecified asthma, uncomplicated (principal); G47.33 Obstructive sleep apnea (adult) (pediatric); Z91.09 Other allergy status, other than to drugs and biological substances; Z79.899 Other long term (current) drug therapy | CPT/HCPCS: 99212 ==

== ENCOUNTER → 2021-11-12 14:57 | Outpatient (REF) | payer OTHER, SELFPAY | LOC: HO.SL 14:57 | PROVIDERS: PCP Internal Medicine; Visit Provider Internal Medicine Pulmonary Disease | DX: G47.33 Obstructive sleep apnea (adult) (pediatric) (principal) | CPT/HCPCS: 95806 ==

== ENCOUNTER 2021-11-12 19:38 | Emergency (ER) | payer OTHER, SELFPAY ==
--- NOTE | ~2021-11-12 | XR_ITS ---
EXAMINATION: XR KNEE, RIGHT CLINICAL INFORMATION: Pain and swelling COMPARISON: None TECHNIQUE: Four views of the right knee. FINDINGS: No visible acute fracture or dislocation. Trace suprapatellar joint fluid.. Alignment is anatomic. Joint spaces are well maintained. No abnormal soft tissue calcification. XR/XR knee RT 4V IMPRESSION: No evidence of acute osseous abnormality.
[2021-11-12 20:11] VITALS: BP 119/71; PULSE 67; RESP 18; TEMP 36.1; O2SAT 99; BMI 38.2
== END 2021-11-13 00:28 | disposition left against medical advice (07) ==
PROVIDERS: Emergency Provider Emergency Medicine; PCP Internal Medicine
DX: M25.561 Pain in right knee (principal); R22.41 Localized swelling, mass and lump, right lower limb
CPT/HCPCS: 73564; 99281; 99283

== ENCOUNTER 2021-12-16 14:08 | Emergency (ER) | payer OTHER, SELFPAY ==
[2021-12-16 14:13] VITALS: BP 169/79; PULSE 79; RESP 18; TEMP 36.6; O2SAT 98; BMI 36.6
--- NOTE | 2021-12-16 14:57 | ED_ITS ---
HPI - Allergic Reaction General Chief complaint: Allergic Reaction Stated complaint: Bee sting/Allergic reaction Time Seen by Provider: 12/16/21 14:55 Source: patient and religion department chair Mode of arrival: ambulatory Limitations: language barrier History of Present Illness HPI narrative: 51-year-old female here with bee stings the left axilla which occurred at 11 o'clock this morning. Patient reports some local discomfort, redness and swelling, COUGH, wheezing, abdominal cramping. She denies any tongue or lip swelling, vomiting, diarrhea. Patient reports anaphylaxis to bee stings in the past. Patient tells me that she does not have an EpiPen. Related Data Home Medications Medication Instructions Recorded Confirmed albuterol sulfate 90 mcg/actuation 2 puff inhalation Q6H PRN Wheezing 07/25/20 07/25/20 aerosol inhaler (ProAir HFA) azathioprine 50 mg tablet 50 mg PO DAILY 07/25/20 07/25/20 fluticasone 500 mcg-salmeterol 50 1 inh inhalation BID 07/25/20 07/25/20 mcg/dose blistr powdr for inhalation (Advair Diskus) fluticasone propionate 50 2 spray intranasal DAILY 07/25/20 07/25/20 mcg/actuation nasal spray,suspension (Flonase Allergy Relief) loratadine 10 mg tablet (Allergy 10 mg PO DAILY 07/25/20 07/25/20 Relief (loratadine)) montelukast 10 mg tablet 10 mg PO DAILY 07/25/20 07/25/20 naproxen 500 mg tablet (Naprosyn) 500 mg PO BID 07/25/20 07/25/20 omeprazole 20 mg capsule,delayed 20 mg PO BID 07/25/20 07/25/20 release losartan 50 mg-hydrochlorothiazide 1 tab PO DAILY 03/01/21 03/01/21 12.5 mg tablet Previous Rx's Medication Instructions Recorded amitriptyline 50 mg tablet 50 mg PO BEDTIME #30 tabs 07/25/20 cock up splint #2 ea 07/27/21 cyclobenzaprine 10 mg tablet 10 mg PO TID PRN muscle spasm #14 12/16/21 tabs epinephrine 0.3 mg/0.3 mL 0.3 mg (0.3 mL) IM Q4H PRN 12/16/21 injection, auto-injector (EpiPen) anaphylaxis #2 ea lidocaine 5 % topical patch 1 patch topical DAILY #15 ea 12/16/21 (Lidoderm) Allergies Allergy/AdvReac Type Severity Reaction Status Date / Time shrimp Allergy Intermediate SWELLING Verified 11/02/21 09:39 cat dander [cats] Allergy Unknown Unknown Verified 11/02/21 09:39 pollen extracts Allergy Unknown Unknown Verified 11/02/21 09:39 walnut Allergy Unknown Unknown Verified 11/02/21 09:39 bee pollen [bee stings] Allergy Wheezing Verified 12/16/21 16:02 dog dander [dogs] AdvReac Unknown Unknown Verified 11/02/21 09:39 Review of Systems Review of Systems: Yes all other systems are reviewed and are negative Constitutional: Constitutional: Reports no additional constitutional complaints, Denies body ache(s), Denies chills, Denies fever(s), Denies headache(s) and Denies weakness Eyes: Eyes: Reports no additional eye complaints and Denies change in vision ENT: Reports system reviewed and no additional complaints, except as doc umented, Denies dizziness, Denies headache(s), Denies nasal congestion, Denies nasal discharge and Denies neck pain Cardiovascular: Cardiovascular: Reports no additional cardiovascular complaints, Denies chest pain, Denies leg edema and Denies dyspnea Respiratory: Respiratory: Reports no additional respiratory complaints, Reports cough, Denies dyspnea and Reports wheezing Gastrointestinal: Gastrointestinal: Reports no additional gastrointestinal complaints, Reports abdominal pain, Denies diarrhea, Denies nausea and Denies vomiting Genitourinary: Genitourinary: Reports no additional female genitourinary complaints and Denies urinary incontinence Musculoskeletal: Musculoskeletal: Reports no additional musculoskeletal compl aints, Denies back pain, Denies arthralgias, Denies joint swelling, Denies neck pain, Denies numbness and Denies tingling Integumentary/Breasts: Skin/Breast: Reports system reviewed and no additional complaints, except as docu, Reports swelling, Reports erythema and Denies rash Neurologic: Reports system reviewed and no additional complaints, except as documented, Denies dizziness, Denies headache(s), Denies numbness, Denies tingling and Denies weakness Allergic/Immunologic: Allergic/Immunologic: Reports wheezing PMFSH Past Medical History Attestation statement: The following information was validated with the patient. Source: old records reviewed and nursing notes reviewed Medical History Asthma Fibromyalgia GERD (gastroesophageal reflux disease) Sleep apnea Ulcerative colitis Surgical History H/O colonoscopy History of Social History Social History Household Members: Spouse Housing: Apartment Alcohol intake: never Patient Tobacco Use Status: Never used Tobacco Advance Directives: No Advance Directives Information Provided: No Physical Exam ED Vital Signs: Vital Signs - 24 hr 12/16/21 14:13 12/16/21 15:53 Temperature 98 F Pulse Rate 79 78 Respiratory Rate 18 18 Blood Pressure 169/79 H Pulse Oximetry 98 BMI result Body Mass Index 36.6 Const General: cooperative, healthy appearing, comfortable and no acute distress Orientation/consciousness: patient oriented x3 Limitations: language barrier HENMT Other: no stridor Head: Yes normal to inspection Ears: hearing grossly normal bilaterally Face and sinus: Yes normal facial exam Mouth: Normal oral and palatal mucosa present, lip normal and tongue normal Throat: Yes posterior oropharynx normal, Yes tonsils normal and Yes uvula midline Eyes General: appearance normal, both eyes and all related structures Pupils: Equal, round and reactive pupils present Neck Neck: Yes normal visual inspection, Yes full ROM and Yes no lymphadenopathy Chest Chest palpation & inspection: normal inspection of the chest Chest/axillae images: 1. Area of redness, swelling Resp Effort & Inspection: normal respiratory effort Auscultation: wheezes Cardio Rate: regular rate Rhythm: regular rhythm Peripheral pulses: Peripheral pulses 2+ throughout GI Inspection: Yes normal to inspection Palpation (GI): Soft to palpation and nontender Back/Spine/Pelvis Other: Tenderness the lumbar soft tissue with no midline tenderness, step-offs deformities. Neuro General: patient oriented x3 and moves all extremities Cranial nerves: Yes CN's II-XII intact bilaterally, Yes Equal, round and reactive pupils present, Yes Bilaterally intact EOM present, Yes Nystagmus not present, Yes Normal facial strength present and Yes Midline tongue present Cognition (Neuro): normal cognition Gait exam (Neuro): Normal gait present Motor exam (neuro): 5/5 motor strength present throughout Sensory Exam: Normal double simultaneous stimulation for sensation Deep tendon reflexes (DTR's): Right patellar reflex intensity grade: 2+ and Left patellar reflex intensity grade: 2+ Course Course Course Narrative: 1640-patient monitored any ER for 2-1/2 hours. Repeat exam is improved. Lungs are clear. Patient feels overall better. Plan for discharge home with EpiPen as needed. Reviewed worrisome signs and symptoms and when to return to the emergency department. Comfortable discharge home. Reevaluation(s) Reevaluation #1: On discharge patient complaining of some low back pain. Patient tells me she has had pain for several months. No injury or trauma. No radiation of pain. No associated numbness, tingling, weakness of the lower extremities. No num bness in the groin. No bowel or bladder incontinence or urinary retention. Patient tells me she has been seen by her negative checker and primary care. Recommended she take Tylenol. Patient reports continued pain. On exam patient has some mild tenderness the lumbar soft tissue with no midline tenderness, step-offs deformities. Normal neuro exam. Likely lumbar strain. Patient recommended to continue Tylenol, add Flexeril Lidoderm patches. She should follow-up with her outpatient specialist. Reviewed worrisome signs and symptoms of when to return to the emergency department. Comfortable discharge home. MDM - Allergic Reaction MDM Narrative Medical decision making narrative: 51-year-old female with history of bee sting allergy presents with reports of cough, wheezing, abdominal cramping, swelling and redness around the bee sting site after being stung at 11:00 o'clock this morning. Patient tells me she did not have her EpiPen available for use. On arrival vitals are stable. Patient has no upper airway complaints and no stridor on exam. She does have expiratory wheezing throughout. She has used her albuterol inhaler several times prior to arrival. Patient to have IV, Benadryl, Solu-Medrol, famotidine, albuterol Medical Records Attestation: I reviewed the patient's medical records. Lab Data Attestation: I reviewed the patient's lab results. Discharge Plan Discharge Clinical Impression: Bee sting, Allergic reaction, Lumbar strain Patient Disposition: Home, Self-Care Instructions: Insect Bite or Sting (ED), Low Back Strain (ED), General Allergic Reaction (ED) Additional Instructions: Next time you get stung by a bee give yourself her EpiPen. Keep this on you at all times Prescriptions: New epinephrine [EpiPen] 0.3 mg/0.3 mL auto-injector 0.3 mg IM Q4H PRN (Reason: anaphylaxis) Qty: 2 0RF cyclobenzaprine 10 mg tablet 10 mg PO TID PRN (Reason: muscle spasm) Qty: 14 0RF lidocaine [Lidoderm] 5 % adhesive patch,medicated 1 patch topical DAILY Qty: 15 0RF Rx Instructions: leave on most painful area for up to 12 hrs No Action losartan-hydrochlorothiazide 50-12.5 mg tablet 1 tab PO DAILY azathioprine 50 mg tablet 50 mg PO DAILY omeprazole 20 mg capsule,delayed release(DR/EC) 20 mg PO BID fluticasone propionate [Flonase Allergy Relief] 50 mcg/actuation spray,suspension 2 spray intranasal DAILY Rx Instructions: administer into each nostril loratadine [Allergy Relief (loratadine)] 10 mg tablet 10 mg PO DAILY fluticasone propion-salmeterol [Advair Diskus] 500-50 mcg/dose blister with device 1 inh inhalation BID albuterol sulfate [ProAir HFA] 90 mcg/actuation HFA aerosol inhaler 2 puff inhalation Q6H PRN (Reason: Wheezing) naproxen [Naprosyn] 500 mg tablet 500 mg PO BID montelukast 10 mg tablet 10 mg PO DAILY amitriptyline 50 mg tablet 50 mg PO BEDTIME Qty: 30 5RF (DME) cock up splint See Rx Instructions .Route .MEDSUPPLY Qty: 2 0RF Rx Instructions: As directed. Wear at night Referrals: Prerna Bravo MD [Primary Care Provider] - 1 week Stand Alone Forms: Work/School Release
[2021-12-16] MEDS: 0.9 % Sodium Chloride 1,000 ML 999 ML IV (15:23)
[2021-12-16] MEDS: methylPREDNISolone Sod Succ 125 MG/2 ML VIAL IVPUSH (15:27)
[2021-12-16] MEDS: Famotidine/PF 20 MG/2 ML VIAL IVPUSH (15:27)
[2021-12-16] MEDS: diphenhydrAMINE HCL 50 MG/ML VIAL IVPUSH (15:27)
[2021-12-16 15:53] VITALS: PULSE 78; RESP 18; O2SAT 98
[2021-12-16] MEDS: Albuterol/Iprat 2.5/0.5MG 3 ML AMPUL.NEB INHALE (15:53)
[2021-12-16] MEDS: Acetaminophen 325 MG TABLET 975 MG PO (17:32)
== END 2021-12-16 18:03 | disposition home or self-care (01) ==
PROVIDERS: Emergency Provider Emergency Medicine; PCP Internal Medicine
DX: S39.012A Strain of muscle, fascia and tendon of lower back, initial encounter (principal); L50.9 Urticaria, unspecified; X58.XXXA Exposure to other specified factors, initial encounter; Y93.9 Activity, unspecified; Y92.9 Unspecified place or not applicable; Y99.9 Unspecified external cause status; Z79.899 Other long term (current) drug therapy
CPT/HCPCS: 94640; 96374; 96375; 99284; J1200; J2930

== ENCOUNTER 2021-12-27 10:43 | Outpatient (RCR) | payer OTHER, SELFPAY ==
--- NOTE | 2021-12-27 13:59 | MHC.PT.EP ---
[facility] [place] Office [place] Office [place] Office [address] Carlos Ulrich [address] [phone] F: [phone] F: [phone] F: [phone] F: [phone] Physical Therapy Plan of Care Date of Evaluation: Date of Surgery: N/A Diagnosis: low back pain Assessment: Patient is 51 y.o female who presents to PT with acute on chronic LBP that is radicular in nature, no directional preference, is painful with all movements at this time. Patient will benefit from pain control initially with modalities, gentle HEP/stretching and manual therapy with education on positioning, proper body mechanics are her job is labor intensive. She is limited in ADLs with spouse providing Moderate assist with dressing, cooking, cleaning. She is limited in her ability to drive long distances and has difficulty with prolonged postures, movements, bend/squatting and getting out of chairs. She will benefit from skilled PT to address aforementioned impairments and restore her functional mobility to become more independent. If she does not progress well in PT, recommend return to MD for diagnostic imaging. Frequency and Duration: The patient will be seen 2x/week for 4 weeks Short Term Goals: 2 weeks: Patient demonstrates independence with HEP to self manage chronic symptoms. Patient is able to keep low back pain centralized when performing sit to stand. Assisted Goals: 4 weeks: Patient presents with increased lumbar flexion 80 degrees to improve flexibility to put on shoes independently. Patient presents with increased bilateral hip flexion 4+/5 to be able to perform proper squat to improve picking up items for work tasks. Treatment Plan: Modalities to reduce pain, spasms and effusion. Manual therapy to restore motion and function. Therapeutic exercise to improve strength and flexibility. Neuromuscular re-education for posture and balance. Therapeutic activities to return to functional activities of daily living. Electronically signed by: Erica Erickson, PT, DPT Please sign and return to therapist. Thank you for your referral.
--- NOTE | 2022-01-10 14:00 | MHC.PT.DC ---
[facility] [place] Office [place] Office [place] Office [address] Carlos Ulrich [address] [phone] F: [phone] F: [phone] F: [phone] F: [phone] Physical Therapy Discharge Report Diagnosis: low back pain Date of Surgery: N/A Date of Evaluation: 12/27/21 Date of Discharge: Treatments to Date: 1 Cancellations to Date: No Shows to Date: Discharge Status: Discharge Summary: She was referred to PT for neck pain, came in c/o low back pain. Called MD to get updated PT prescription. However, MD did not want to send Rx without seeing patient for a FUP. Patient did not call or see MD to get referral, therefore she is discharged from PT at this time. Electronically signed by: Erica Erickson, PT, DPT Please sign and return to therapist. Thank you for your referral.
== END 2022-01-10 14:00 | disposition home or self-care (01) ==
LOC: HO.PT 10:43
PROVIDERS: PCP Internal Medicine; Visit Provider Nurse Practitioner Family
DX: M54.2 Cervicalgia (principal)
CPT/HCPCS: 97110; 97140; 97161

== ENCOUNTER 2022-01-03 11:58 | Outpatient (REF) | payer OTHER, SELFPAY ==
[2022-01-03 12:37] LABS: MANUAL DIFF FLAG NO
[2022-01-03 13:15] LABS: Basophils Absolute Auto 0.1 X10*3/uL (0.0-0.2); Basophils Percent Auto 0.5 % (0-2); Eosinophils Absolute Auto 0.1 X10*3/uL (0.0-0.4); Eosinophils Percent Auto 0.9 % (0-4); Hemoglobin 13.2 g/dl (12.0-16.0); Imm Gran Abs Auto 0.04 X10*3/uL (0.00-0.03); Imm Gran Pct Auto 0.4 % (0.0-0.4); Lymphocytes Absolute Auto 2.3 X10*3/uL (1.2-4.9); Lymphocytes Percent Auto 25.4 % (20-40); Mean Corpuscular HGB Conc 31.4 g/dl (31.0-35.0); Mean Corpuscular Hemoglobin 26.6 pg (27.0-33.0); Mean Corpuscular Volume 84.5 fL (80.0-98.0); Mean Platelet Volume 10.9 fL (9.4-12.3); Monocytes Absolute Auto 0.5 X10*3/uL (0.1-1.2); Monocytes Percent Auto 5.8 % (2-11); Neutrophils Absolute Auto 6.2 x10*3/uL (2.0-8.3); Platelet Count 254 X10*3/uL (160-400); Red Blood Count 4.97 X10*6/uL (4.20-5.50); White Blood Count 9.2 X10*3/uL (4.8-10.8)
[2022-01-03 13:41] LABS: Alanine Aminotransferase 24 U/L (0-31); Alkaline Phosphatase 133 U/L (39-117); Anion Gap 16 (12-20); Aspartate Amino Transferase 25 U/L (5-31); Bilirubin Total 0.6 mg/dL (0.0-1.0); Blood Urea Nitrogen 11 mg/dL (9-16); Calcium 9.2 mg/dL (8.4-10.2); Carbon Dioxide 25 mmol/L (22-29); Chloride 104 mmol/L (96-108); Cholesterol 196 mg/dL; Estimated Glomerular Filt Rate > 60; Glucose Random 102 mg/dL (60-115); HDL Cholesterol 53 mg/dL; LDL Cholesterol Calculated 118 mg/dl; Potassium 4.5 mmol/L (3.3-5.1); Sodium 140 mmol/L (135-145); Total Protein 7.2 g/dL (6.5-8.0); Triglycerides 128 mg/dL
[2022-01-03 13:59] LABS: Thyroid Stimulating Hormone 1.17 uIU/mL (0.32-4.0)
[2022-01-05 13:52] LABS: TS Negative Control Passed; TS Panel A 0; TS Panel B 0; TS Positive Control Passed; TSpotTB Negative (Negative)
== END 2022-01-03 11:59 | disposition home or self-care (01) ==
LOC: HO.LAB 11:58
PROVIDERS: PCP Internal Medicine; Visit Provider Internal Medicine
DX: F32.5 Major depressive disorder, single episode, in full remission (principal); I10 Essential (primary) hypertension; J45.30 Mild persistent asthma, uncomplicated; M79.7 Fibromyalgia; Z11.1 Encounter for screening for respiratory tuberculosis
CPT/HCPCS: 36415; 80053; 80061; 84443; 85025; 86481

== ENCOUNTER 2022-03-30 22:29 | Emergency (ER) | payer OTHER, SELFPAY ==
[2022-03-30 22:31] VITALS: BP 150/85; PULSE 78; RESP 17; TEMP 36.6; O2SAT 100; BMI 36.1
--- NOTE | 2022-03-30 22:34 | ECG_ITS ---
Test Reason : chest pain Blood Pressure : / mmHG Vent. Rate : 068 BPM Atrial Rate : 068 BPM P-R Int : 170 ms QRS Dur : 098 ms QT Int : 382 ms P-R-T Axes : 047 053 048 degrees QTc Int : 406 ms Normal sinus rhythm with sinus arrhythmia Normal ECG When compared to the previous EKG of No significant changes seen Referred By: Dianne Roa Electronically Signed By:LUIS VÁSQUEZ MD
--- OUTSIDE RECORDS SUMMARY | 2022-03-30 22:38 | XMS_ITS ---
:1970 Author Organization [facility] Address [address] [place] [address] Care Team Providers Name Role Phone Kenney Harris Unavailable Unavailable PROBLEMS Type Condition ICD9-CM [id number] Onset Condition SNOMED Cod e Code Code Dates Status Problem Encounter for long Z79.899 Active 7 85018731 term current azathioprine therapy Problem Ulcerative K51.30 Active 64279299 rectosigmoiditis without complication Problem Gastroesophageal K21.9 Active reflux Problem Ulcerative colitis K51.90 Active 6 2777629 Problem Chronic ulcerative K51.30 Active rectosigmoiditis without complications Problem Encounter for Z12.11 Active 513478 004 screening for malignant neoplasm of colon Problem Early satiety R68.81 Active 596772 002 Problem Gastroesophageal K21.9 Active 235 125363 reflux disease, unspecified whether esophagitis present ALLERGIES Substance Reaction Event Type Date Status bees Unknown Non Drug Allergy Jan, Active cats Unknown Non Drug Allergy Jan, Active pollen Unknown Non Drug Allergy Jan, Active dust Unknown Non Drug Allergy Jan, Active oak trees Unknown Non Drug Allergy Jan, Active ENCOUNTERS Encounter Location Date Diagnosis [address] Jan, [facility] [address] [place] [address] Jan, [facility] [address] [place] [address] Jan, [facility] [address] [place] [address] [facility] [place] [address] [place] [address] Feb, Colon polyps K6 3.5 ; MARY Hutchison [id number] Internal h emorrhoids K64.8 ; Ulcerative colit is K51.90 ; Hiatal hernia K4 4.9 and Gastroesophageal reflux K21.[address] [place] [address] Jan, Ulcerati ve rectosigmoiditis [facility] [address] [place] without co mplication K51.30 [address] ; Gastroesophage al reflux disease, unspeci fied whether esophagitis pres ent K21.9 ; Early satiety R6 8.81 and Encounter for ga reening for malignant neopla sm of colon Z12.[address] [place] [address] Sep, Chronic ulcerative [facility] [address] [place] rectosigmo [place]itis [place] [address] complications K5 1.[address] [place] [address] Mar, [facility] [address] [place] [address] [place] [address] Mar, Chronic ulcerative [facility] [address] [place]itis [place] [address] complications K5 1.[address] [place] [address] Jan, Chronic ulcerative [facility] [address] [place] [address] complications K5 1.[address] [place] [address] August, [facility] [address] [place] [address] [place] [address] Dec, Chronic ulcerative [facility] [address] [place] [address] complications K5 1.30 and Encounter for lo ng term current azathiop rine therapy Z79.899 [place] [address] May, Chronic ulcerative [facility] [address] [place] [address] complications K5 1.30 and Encounter for lo ng term current azathiop rine therapy Z79.899 [place] [address] Mar, [facility] [address] [place] [address] [place] [address] Jan, Chronic ulcerative [facility] [address] [place] [address] complications K5 1.30 and Encounter for lo ng term current azathiop rine therapy Z79.899 [place] [address] Jan, [facility] [address] [place] [address] [facility] [address] Jan, [facility] [address] [place] [address] [facility] [address] Nov, Chronic ulcerative [facility] [address] [place] [address] complications K5 1.30 [facility] [address] Jul, Ulcerati ve rectosigmoiditis [facility] [address] [place] without co mplication K51.30 [address] and 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 current azathiop rine therapy Z79.899 [facility] [address] Apr, [facility] [address] [place] [address] [facility] [address] Feb, [facility] [address] [place] [address] [facility] [address] Jan, Ulcerati ve rectosigmoiditis [facility] [address] [place] without co mplication K51.30 [address] and 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 current azathiop rine therapy Z79.899 [facility] [address] Nov, Other ul cerative colitis [facility] [address] [place] Hutch[place] 556.8 [address] [facility] [address] August, Ulcerati ve colitis 556.9 [facility] [address] [place] [address] [facility] [address] Apr, [facility] [address] [place] [address] [facility] [address] Feb, [facility] [address] [place] [address] [facility] [address] Jan, Ulcerati ve colitis 556.9 [facility] [address] [place] [address] [facility] [address] Dec, [facility] [address] [place] [address] [facility] [address] Dec, Ulcerati ve colitis 556.9 [facility] [address] [place] [address] [facility] [address] Oct, [facility] [address] [place] [address] [facility] [address] Oct, Ulcerati ve colitis 556.9 [facility] [address] [place] [address] [facility] [address] August, [facility] [address] [place] [address] [place] [address] August, Ulcerati ve colitis 556.9 [facility] [address] [place] [address] [place] [address] Apr, Ulcerati ve colitis, [facility] [address] [place] Hutchison rectosigmo id 556.3 and [address] Anemia 285.9 [facility] [address] Mar, [facility] [address] [place] [address] [place] [address] Oct, Ulcerati ve colitis, [facility] [address] [place] Hutchison rectosigmo id 556.3 and [address] Anemia 285.9 [place] [address] August, [facility] [address] [place] [address] [place] [address] Jun, Ulcerati ve colitis, [facility] [address] [place] Hutchison rectosigmo id 556.3 [address] [place] [address] May, [facility] [address] [place] [address] [place] [address] Feb, Ulcerati ve colitis 556.9 [facility] [address] [place] [address] [place] [address] Nov, Ulcerati ve colitis 556.9 ; [facility] [address] [place] Hutchison Abdominal pain, epigastric [address] 789.06 and Abdom inal pain, right upper quad rant 789.01 [facility] [address] Nov, [facility] [address] [place] [address] [place] [address] August, Unspecif ied ulcerative [facility] [address] [place] colitis 55 6.9 ; Unspecified [address] iron deficiency anemia 280.9 and Esophageal r eflux 530.81 [place] [address] August, [facility] [address] [place] [address] [facility] [address] Jun, [facility] [address] [place] [address] [facility] [address] Jun, Unspecif ied ulcerative [facility] [address] [place] colitis 55 6.9 ; Esophageal [address] reflux 530.81 an d Irritable bowel syndrome 5 64.1 [facility] [address] Jun, [facility] [address] [place] [address] [facility] [address] May, Unspecif ied ulcerative [facility] [address] [place] colitis 55 6.9 and Esophageal [address] reflux 530.81 [facility] [address] May, Unspecif ied ulcerative [facility] [address] [place] colitis 55 6.9 [address] [facility] [place] [address] Nov, MARY Hutchison [phone] [facility] [place] [address] August, [place]ison [phone] [facility] [place] [address] Jun, [place] Hutchison [phone] [facility] [place] [address] Jan, M[place]ison [phone] [facility] [place] [address] Jan, [place]ison [phone] [facility] [place] [address] Oct, [place] Hutchison [phone] [facility] [place] [address] May, [place] [phone] [facility] [place] [address] May, M[place] Hutchison [phone] IMMUNIZATIONS Vaccine Route Administration Date Status Influenza Unknown Feb 13, 2021 Administered Influenza Unknown Dec 20, 2017 Administered SOCIAL HISTORY Never Assessed REASON FOR REFERRAL FUNCTIONAL STATUS PLAN OF CARE Activity Details Future Appointment Provider Name:Kenney Anne Kimberly , 2022-06-11 09:50:00 AM, [address], [address], [place], [address], Pending Test LIVER PROFILE Pending Test CBC w DIFF Pending Test PROMETHEUS THIOPURINE METABO LITES (TPMT) Pending Test LIVER PROFILE Pending Test CBC w DIFF Pending Test LIVER PROFILE Pending Test CBC w DIFF Pending Test PROMETHEUS THIOPURINE METABO LITES (TPMT) Pending Test ELECTROLYTES Pending Test BUN Pending Test CREATININE Pending Test LIVER PROFILE Pending Test CRP Pending Test CBC w DIFF Pending Test SED RATE (ESR) Pending Test PROMETHEUS THIOPURINE METABO LITES (TPMT) Pending Test LIVER PROFILE Pending Test CBC w DIFF Pending Test PROMETHEUS THIOPURINE METABO LITES (TPMT) Pending Test LIVER PROFILE Pending Test CBC w DIFF Pending Test PROMETHEUS THIOPURINE METABO LITES (TPMT) Pending Test LIVER PROFILE Pending Test CBC w DIFF Pending Test PROMETHEUS THIOPURINE METABO LITES (TPMT) Pending Test PROMETHEUS TPMT ENZYME Pending Test PROMETHEUS TPMT GENETICS Pending Test LIVER PROFILE Pending Test CBC w DIFF Pending Test LIVER PROFILE Pending Test CBC w DIFF Pending Test LIVER PROFILE Pending Test CBC w DIFF Pending Test LIVER PROFILE Pending Test CBC w DIFF Pending Test LIVER PROFILE Pending Test CBC w DIFF Pending Test LIVER PROFILE Pending Test CBC w DIFF Pending Test LIVER PROFILE Pending Test CBC w DIFF Pending Test SED RATE (ESR) Pending Test CLOSTRIDIUM DIFF TOXIN A&B ( C DIFF) Pending Test CULTURE, STOOL Pending Test LIVER PROFILE Pending Test CBC w DIFF Pending Test US ABD Pending Test CBC w DIFF Pending Test HEPATITIS B SURFACE ANTIGEN Future/Pending Procedure COLONOSCOPY [id number] Future/Pending Procedure UPPER GI ENDOSCOPY [id number] VITAL SIGNS Weight 226 lbs 2021-02-13 Weight 221 lbs 2018-04-02 Weight 213 lbs 2016-12-31 Weight 206 lbs 2016-06-18 Weight 206 lbs 2016-02-15 Weight 203 lbs 2015-08-17 Weight 200 lbs 2015-02-14 Weight 208 lbs 2013-05-12 Weight 196 lbs 2012-11-04 Weight 192 lbs 2012-06-24 Weight 195 lbs 2011-12-18 Weight 196 lbs 2011-08-23 Weight 200 lbs 2011-07-05 Weight 201 lbs 2011-06-04 Weight 202 lbs 2011-05-22 Height 64.50 in 2021-02-13 Height 64.50 in 2018-04-02 Height 64.50 in 2016-12-31 Height 64.50 in 2016-06-18 Height 64.50 in 2016-02-15 Height 64.50 in 2015-08-17 Height 64.50 in 2015-02-14 Height N/A in 2013-05-12 Height N/A in 2012-11-04 Height N/A in 2012-06-24 Height N/A in 2011-12-18 Height N/A in 2011-08-23 Height N/A in 2011-07-05 Height N/A in 2011-06-04 Height 64.50 in 2011-05-22 BMI 38.19 kg/m2 2021-02-13 BMI 37.34 kg/m2 2018-04-02 BMI 35.99 kg/m2 2016-12-31 BMI 34.81 kg/m2 2016-06-18 BMI 34.81 kg/m2 2016-02-15 BMI 34.30 kg/m2 2015-08-17 BMI 33.80 kg/m2 2015-02-14 BMI 35.15 kg/m2 2013-05-12 BMI 33.12 kg/m2 2012-11-04 BMI 32.44 kg/m2 2012-06-24 BMI 32.95 kg/m2 2011-12-18 BMI 33.12 kg/m2 2011-08-23 BMI 33.80 kg/m2 2011-07-05 BMI 33.97 kg/m2 2011-06-04 BMI 34.13 kg/m2 2011-05-22 Heart Rate 84 /min 2016-02-15 Heart Rate 90 /min 2013-05-12 Heart Rate 80 /min 2011-08-23 Temperature 98.2 degrees Fahrenheit 2021-02-13 Blood pressure systolic 000 mm Hg 2021-02-13 Blood pressure diastolic 00 mm Hg 2021-02-13 MEDICATIONS Medication Instructions Dosage Frequency Start End Duration Statu s Date Date Omeprazole 20 MG TAKE 1 30 Active CAPSULE BY MOUTH EVERY DAY FOR 30 DAYS ProAir HFA 108 Inhalation 2 puffs as 6h Act jluis (90 Base) every 6 hrs needed MCG/ACT Amitriptyline Not-Taki HCl ng Loratadine Active Advair HFA Inhalation 2 puffs 12h Active 115-21 MCG/ACT Twice a day Pentasa 500 MG Orally Four 2 capsules 6h 14 Jan, day(s) Active times a day 2021 Pentasa 500 MG Orally Four 2 capsules 6h 18 Jan, 30 day(s) Active times a day 2021 Mesalamine 800 Orally Three 2 tablets 8h Jan, day(s) Active MG times a day 2021 Hyoscyamine Not-Taki Sulfate ng Sudafed Not-Taki ng Imodium A-D 2 MG Orally Four 1-2 tablets Dec, days Active times a day prn as needed 2016 loose stools Gas-X 80 MG Orally Four 1 tablet Active times a day/prn after meals and at bedtime as needed Feosol 200 (65 Orally as 1 tablet Active Fe) MG directed Ibuprofen 200 MG Orally as 2 tablets Act jluis directed with food or milk as needed Albuterol Inhalation 2 puffs as 6h Active Sulfate HFA 108 every 6 hrs needed (90 Base) MCG/ACT Flonase 50 Nasally Once a 1 spray in 24h Act jluis MCG/ACT day each nostril Asacol HD 800 MG Orally Three 2 tablets 8h August, Not-Taki times a day 2012 ng Hyoscyamine Orally Q 6 1-2 tablets Nov, days Not-T perico Sulfate 0.125 MG hours prn 2013 ng abdominal cramps, bloating, or gas Dicyclomine HCl Orally Every 6 1-2 Jan, day(s) Active 10 MG hours prn capsules 2021 abdominal cramps/discomfo rt PROCEDURES Procedure Date Ordered Result Body Site LESION REMOVAL COLONOSCOPY Mar 07, 2021 FLU IMMUNIZE ORDER/ADMIN Apr 02, 2018 DOC MEDS VERIFIED W/PT OR RE Feb 13, 2021 COLONOSCOPY AND BIOPSY Mar 07, 2021 DOC MEDS VERIFIED W/PT OR RE Apr 02, 2018 TOBACCO NON-USER Feb 13, 2021 UPPR GI ENDOSCOPY, DIAGNOSIS Mar 07, 2021 BMI >=30 CALCUATE W/FOLLOWUP Apr 02, 2018 BP SCR PRFRM RCMDD DEFIND SCR INTVL Apr 02, 2018 TOBACCO NON-USER Apr 02, 2018 BP SCR NOT PRFRM REC REASON NOS Feb 13, 2021 RESULTS Name Result Date Reference Range Pathology 2021-03-07 LIVER PROFILE 2016-01-03 PROTEIN, TOTAL 6.9 6.5-8.0 ALBUMIN 4.1 3.5-5.0 BILIRUBIN, TOTAL 0.7 0.0-1.0 BILIRUBIN, DIRECT 0.2 0.0-0.5 ALK. PHOS. 116 39-117 GOT 15 5-31 GPT 13 0-31 CBC w DIFF 2016-01-03 WBC 11.8 4.8-10.8 ABSOLUTE NEUTROPHIL COUNT 8.3 2.2-7. 9 RBC 4.99 4.20-5.50 HEMOGLOBIN 12.0 12.0-16.0 HEMATOCRIT 38.5 37-47 MCV 77.3 80-98 MCH 24.1 27.0-33.0 MCHC 31.2 31.0-35.0 PLATELET COUNT 331 160-400 RDW 15.5 11.0-16.0 NEUTROPHILS 70.4 45-73 LYMPHOCYTES 22.4 20-40 MONOCYTES 5.9 2-11 EOSINOPHILS 0.8 0-4 BASOPHILS 0.5 0-2 PROMETHEUS THIOPURINE METABOLITES (TPMT) 2015-12 PROM THIOPURINE METABOLITES SEE NOTE PROMETHEUS TPMT ENZYME 2016-01-03 PROM TPMT ENZYME SEE NOTE PROMETHEUS TPMT GENETICS 2016-01-03 PROM TPMT GENETICS SEE NOTE LIVER PROFILE 2015-08-17 PROTEIN, TOTAL 6.5 6.5-8.0 ALBUMIN 3.8 3.5-5.0 BILIRUBIN, TOTAL 0.3 0.0-1.0 BILIRUBIN, DIRECT < 0.2 0.0-0.5 ALK. PHOS. 101 39-117 GOT 12 5-31 GPT 10 0-31 CBC w DIFF 2015-08-17 WBC 9.9 4.8-10.8 ABSOLUTE NEUTROPHIL COUNT 6.3 2.2-7. 9 RBC 4.86 4.20-5.50 HEMOGLOBIN 11.1 12.0-16.0 HEMATOCRIT 35.2 37-47 MCV 72.5 80-98 MCH 22.9 27.0-33.0 MCHC 31.6 31.0-35.0 PLATELET COUNT 363 160-400 RDW 15.6 11.0-16.0 NEUTROPHILS 63.8 45-73 LYMPHOCYTES 28.9 20-40 MONOCYTES 5.5 2-11 EOSINOPHILS 1.3 0-4 BASOPHILS 0.5 0-2 LIVER PROFILE 2015-04-25 PROTEIN, TOTAL 6.9 6.5-8.0 ALBUMIN 4.0 3.5-5.0 BILIRUBIN, TOTAL 0.3 0.0-1.0 BILIRUBIN, DIRECT < 0.2 0.0-0.5 ALK. PHOS. 113 39-117 GOT 13 5-31 GPT 6 0-31 CBC w DIFF 2015-04-25 WBC 11.5 4.8-10.8 ABSOLUTE NEUTROPHIL COUNT 8.6 2.2-7. 9 RBC 4.84 4.20-5.50 HEMOGLOBIN 11.4 12.0-16.0 HEMATOCRIT 37.4 37-47 MCV 77.3 80-98 MCH 23.6 27.0-33.0 MCHC 30.5 31.0-35.0 PLATELET COUNT 418 160-400 RDW 15.0 11.0-16.0 NEUTROPHILS 75.3 45-73 LYMPHOCYTES 18.4 20-40 MONOCYTES 4.8 2-11 EOSINOPHILS 0.9 0-4 BASOPHILS 0.6 0-2 LIVER PROFILE 2015-02-03 PROTEIN, TOTAL 6.6 6.5-8.0 ALBUMIN 3.7 3.5-5.0 BILIRUBIN, TOTAL 0.3 0.0-1.0 BILIRUBIN, DIRECT < 0.2 0.0-0.5 ALK. PHOS. 101 39-117 GOT 12 5-31 GPT 9 0-31 CBC w DIFF 2015-02-03 WBC 12.4 4.8-10.8 ABSOLUTE NEUTROPHIL COUNT 9.3 2.2-7. 9 RBC 4.79 4.20-5.50 HEMOGLOBIN 11.4 12.0-16.0 HEMATOCRIT 35.9 37-47 MCV 75.0 80-98 MCH 23.8 27.0-33.0 MCHC 31.7 31.0-35.0 PLATELET COUNT 316 160-400 RDW 15.8 11.0-16.0 NEUTROPHILS 75.1 45-73 LYMPHOCYTES 18.4 20-40 MONOCYTES 4.5 2-11 EOSINOPHILS 1.5 0-4 BASOPHILS 0.6 0-2 LIVER PROFILE 2014-02-10 PROTEIN, TOTAL 7.4 6.5-8.0 ALBUMIN 4.0 3.5-5.0 BILIRUBIN, TOTAL 0.9 0.0-1.0 BILIRUBIN, DIRECT 0.2 0.0-0.5 ALK. PHOS. 118 39-117 GOT 15 <3-31 GPT 8 <6-31 CBC w DIFF 2014-02-10 WBC 8.1 4.8-10.8 ABSOLUTE NEUTROPHIL COUNT 5.4 2.2-7. 9 RBC 4.88 4.20-5.50 HEMOGLOBIN 11.2 12.0-16.0 HEMATOCRIT 36.2 37-47 MCV 74.1 80-98 MCH 22.9 27.0-33.0 MCHC 30.9 31.0-35.0 PLATELET COUNT 350 160-400 RDW 17.6 11.0-16.0 NEUTROPHILS 66.8 45-73 LYMPHOCYTES 25.0 20-40 MONOCYTES 6.0 2-11 EOSINOPHILS 1.5 0-4 BASOPHILS 0.7 0-2 LIVER PROFILE 2013-05-13 PROTEIN, TOTAL 7.0 6.5-8.0 ALBUMIN 3.8 3.5-5.0 BILIRUBIN, TOTAL 0.6 0.0-1.0 BILIRUBIN, DIRECT < 0.2 0.0-0.5 ALK. PHOS. 96 39-117 GOT 36 <3-31 GPT 23 < CBC w DIFF 2013-05-13 WBC 7.3 4.8-10.8 ABSOLUTE NEUTROPHIL COUNT 4.8 2.2-7. 9 RBC 4.66 4.20-5.50 HEMOGLOBIN 11.1 12.0-16.0 HEMATOCRIT 34.9 37-47 MCV 74.8 80-98 MCH 23.7 27.0-33.0 MCHC 31.7 31.0-35.0 PLATELET COUNT 331 160-400 RDW 17.0 11.0-16.0 NEUTROPHILS 65.2 45-73 LYMPHOCYTES 23.6 20-40 MONOCYTES 9.1 2-11 EOSINOPHILS 1.6 0-4 BASOPHILS 0.6 0-2 LIVER PROFILE 2012-12-03 PROTEIN, TOTAL 7.0 6.5-8.0 ALBUMIN 4.0 3.5-5.0 BILIRUBIN, TOTAL 0.3 0.0-1.0 BILIRUBIN, DIRECT 0.2 0.0-0.5 ALK. PHOS. 100 39-117 GOT 15 <3-31 GPT 10 <31 CBC w DIFF 2012-12-03 WBC 7.8 4.8-10.8 ABSOLUTE NEUTROPHIL COUNT 4.8 2.2-7. 9 RBC 4.71 4.20-5.50 HEMOGLOBIN 10.3 12.0-16.0 HEMATOCRIT 33.4 37-47 MCV 70.9 80-98 MCH 21.9 27.0-33.0 MCHC 30.9 31.0-35.0 PLATELET COUNT 327 160-400 RDW 15.3 11.0-16.0 NEUTROPHILS 61.0 45-73 LYMPHOCYTES 29.9 20-40 MONOCYTES 7.8 2-11 EOSINOPHILS 0.7 0-4 BASOPHILS 0.6 0-2 LIVER PROFILE 2012-11-06 PROTEIN, TOTAL 6.9 6.5-8.0 ALBUMIN 3.6 3.5-5.0 BILIRUBIN, TOTAL 0.3 0.0-1.0 BILIRUBIN, DIRECT < 0.2 0.0-0.5 ALK. PHOS. 101 39-117 GOT 14 <3-31 GPT 8 <6-31 CBC w DIFF 2012-11-06 WBC 7.6 4.8-10.8 ABSOLUTE NEUTROPHIL COUNT 4.6 2.2-7. 9 RBC 4.72 4.20-5.50 HEMOGLOBIN 10.2 12.0-16.0 HEMATOCRIT 34.2 37-47 MCV 72.5 80-98 MCH 21.6 27.0-33.0 MCHC 29.7 31.0-35.0 PLATELET COUNT 314 160-400 RDW 16.9 11.0-16.0 NEUTROPHILS 60.9 45-73 LYMPHOCYTES 31.3 20-40 MONOCYTES 6.1 2-11 EOSINOPHILS 1.0 0-4 BASOPHILS 0.7 0-2 LIVER PROFILE 2012-06-25 PROTEIN, TOTAL 6.8 6.5-8.0 ALBUMIN 3.6 3.5-5.0 BILIRUBIN, TOTAL 0.5 0.0-1.0 BILIRUBIN, DIRECT < 0.2 0.0-0.5 ALK. PHOS. 105 39-117 GOT 14 <3-31 GPT 8 <6-31 CBC w DIFF 2012-06-25 WBC 8.3 4.8-10.8 ABSOLUTE NEUTROPHIL COUNT 5.2 2.2-7. 9 RBC 3.79 4.20-5.50 HEMOGLOBIN 9.8 12.0-16.0 HEMATOCRIT 30.8 37-47 MCV 81.3 80-98 MCH 26.0 27.0-33.0 MCHC 32.0 31.0-35.0 PLATELET COUNT 360 160-400 RDW 13.3 11.0-16.0 NEUTROPHILS 62.5 45-73 LYMPHOCYTES 29.1 20-40 MONOCYTES 6.6 2-11 EOSINOPHILS 0.9 0-4 BASOPHILS 1.0 0-2 LIVER PROFILE 2011-09-17 PROTEIN, TOTAL 6.8 6.5-8.0 ALBUMIN 3.9 3.5-5.0 BILIRUBIN, TOTAL 0.3 0.0-1.0 BILIRUBIN, DIRECT 0.2 0.0-0.5 ALK. PHOS. 105 39-117 GOT 15 <331 GPT 11 < CBC w DIFF 2011-09-17 WBC 10.6 4.8-10.8 ABSOLUTE NEUTROPHIL COUNT 7.3 2.2-7. 9 RBC 4.46 4.20-5.50 HEMOGLOBIN 10.2 12.0-16.0 HEMATOCRIT 33.0 37-47 MCV 74.1 80-98 MCH 22.9 27.0-33.0 MCHC 30.9 31.0-35.0 PLATELET COUNT 357 160-400 RDW 15.4 11.0-16.0 NEUTROPHILS 68.6 45-73 LYMPHOCYTES 21.9 20-40 MONOCYTES 7.2 2-11 EOSINOPHILS 1.6 0-4 BASOPHILS 0.7 0-2 LIVER PROFILE 2011-09-03 PROTEIN, TOTAL 7.0 6.5-8.0 ALBUMIN 4.0 3.5-5.0 BILIRUBIN, TOTAL 0.4 0.0-1.0 BILIRUBIN, DIRECT 0.2 0.0-0.5 ALK. PHOS. 110 39-117 GOT 15 <3-31 GPT 11 < CBC w DIFF 2011-09-03 WBC 10.0 4.8-10.8 ABSOLUTE NEUTROPHIL COUNT 6.9 2.2-7. 9 RBC 4.68 4.20-5.50 HEMOGLOBIN 10.8 12.0-16.0 HEMATOCRIT 35.1 37-47 MCV 75.0 80-98 MCH 23.1 27.0-33.0 MCHC 30.8 31.0-35.0 PLATELET COUNT 402 160-400 RDW 15.0 11.0-16.0 NEUTROPHILS 69.2 45-73 LYMPHOCYTES 22.9 20-40 MONOCYTES 5.7 2-11 EOSINOPHILS 1.5 0-4 BASOPHILS 0.7 0-2 LIVER PROFILE 2011-08-02 PROTEIN, TOTAL 6.7 6.5-8.0 ALBUMIN 3.8 3.5-5.0 BILIRUBIN, TOTAL 0.3 0.0-1.0 BILIRUBIN, DIRECT < 0.2 0.0-0.5 ALK. PHOS. 112 39-117 GOT 27 <331 GPT 16 < CBC w DIFF 2011-08-02 WBC 10.8 4.8-10.8 ABSOLUTE NEUTROPHIL COUNT 7.2 2.2-7. 9 RBC 4.40 4.20-5.50 HEMOGLOBIN 10.5 12.0-16.0 HEMATOCRIT 33.6 37-47 MCV 76.5 80-98 MCH 23.8 27.0-33.0 MCHC 31.2 31.0-35.0 PLATELET COUNT 344 160-400 RDW 15.1 11.0-16.0 NEUTROPHILS 66.8 45-73 LYMPHOCYTES 23.7 20-40 MONOCYTES 6.3 2-11 EOSINOPHILS 2.4 0-4 BASOPHILS 0.8 0-2 LIVER PROFILE 2011-07-19 PROTEIN, TOTAL 6.7 6.5-8.0 ALBUMIN 3.9 3.5-5.0 BILIRUBIN, TOTAL 0.2 0.0-1.0 BILIRUBIN, DIRECT < 0.2 0.0-0.5 ALK. PHOS. 106 39-117 GOT 16 <07-19 GPT 14 < CBC w DIFF 2011-07-19 WBC 7.8 4.8-10.8 ABSOLUTE NEUTROPHIL COUNT 4.9 2.2-7. 9 RBC 4.42 4.20-5.50 HEMOGLOBIN 10.8 12.0-16.0 HEMATOCRIT 34.0 37-47 MCV 77.0 80-98 MCH 24.3 27.0-33.0 MCHC 31.6 31.0-35.0 PLATELET COUNT 386 160-400 RDW 14.5 11.0-16.0 NEUTROPHILS 63.3 45-73 LYMPHOCYTES 24.6 20-40 MONOCYTES 9.2 2-11 EOSINOPHILS 2.2 0-4 BASOPHILS 0.7 0-2 LIVER PROFILE 2011-07-05 PROTEIN, TOTAL 7.2 6.5-8.0 ALBUMIN 4.0 3.5-5.0 BILIRUBIN, TOTAL 0.3 0.0-1.0 BILIRUBIN, DIRECT 0.2 0.0-0.5 ALK. PHOS. 107 39-117 GOT 19 <331 GPT 13 <31 CBC w DIFF 2011-07-05 WBC 9.6 4.8-10.8 ABSOLUTE NEUTROPHIL COUNT 6.2 2.2-7. 9 RBC 4.72 4.20-5.50 HEMOGLOBIN 11.3 12.0-16.0 HEMATOCRIT 36.8 37-47 MCV 77.9 80-98 MCH 24.0 27.0-33.0 MCHC 30.8 31.0-35.0 PLATELET COUNT 448 160-400 RDW 14.5 11.0-16.0 NEUTROPHILS 65.3 45-73 LYMPHOCYTES 26.9 20-40 MONOCYTES 5.3 2-11 EOSINOPHILS 1.6 0-4 BASOPHILS 0.9 0-2 LIVER PROFILE 2011-06-19 PROTEIN, TOTAL 6.4 6.5-8.0 ALBUMIN 3.7 3.5-5.0 BILIRUBIN, TOTAL 0.2 0.0-1.0 BILIRUBIN, DIRECT < 0.2 0.0-0.5 ALK. PHOS. 91 39-117 GOT 13 <3-31 GPT 13 <6-31 CBC w DIFF 2011-06-19 WBC 12.7 4.8-10.8 ABSOLUTE NEUTROPHIL COUNT 8.3 2.2-7. 9 RBC 4.19 4.20-5.50 HEMOGLOBIN 10.3 12.0-16.0 HEMATOCRIT 33.3 37-47 MCV 79.5 80-98 MCH 24.5 27.0-33.0 MCHC 30.8 31.0-35.0 PLATELET COUNT 383 160-400 RDW 15.5 11.0-16.0 NEUTROPHILS 65.4 45-73 LYMPHOCYTES 28.6 20-40 MONOCYTES 4.9 2-11 EOSINOPHILS 0.6 0-4 BASOPHILS 0.5 0-2 DIFFERENTIAL,MANUAL 2011-06-04 ABSOLUTE NEUTROPHIL COUNT 16.6 2.2-7. 9 SEGS 76 45-73 BANDS 9 3-5 LYMPHOCYTES 15 20-40 PLATELET ESTIMATE NORMAL NORMAL PLATELET MORPHOLOGY NORMAL NORMAL RBC MORPHOLOGY 1+ HYPO NORMAL CBC w/o DIFF 2011-06-04 WBC 20.7 4.8-10.8 RBC 4.61 4.20-5.50 HEMOGLOBIN 11.9 12.0-16.0 HEMATOCRIT 36.2 37-47 MCV 78.6 80-98 MCH 25.7 27.0-33.0 MCHC 32.7 31.0-35.0 PLATELET COUNT 360 160-400 RDW 15.7 11.0-16.0 LIVER PROFILE 2011-06-04 PROTEIN, TOTAL 7.0 6.5-8.0 ALBUMIN 4.0 3.5-5.0 BILIRUBIN, TOTAL 0.3 0.0-1.0 BILIRUBIN, DIRECT < 0.2 0.0-0.5 ALK. PHOS. 107 39-117 GOT 13 <3-31 GPT 10 <6-31 HEPATITIS B PROFILE 2011-05-22 HEPATITIS B SURFACE ANTIGEN NEGATIVE NEGA TIVE HEPATITIS B CORE ANTIBODY NONREACTIVE NONREA CTIVE HEPATITIS B SURFACE ANTIBODY NONREACTIVE NON REACTIVE HEPATITIS B INTERPRETATION SEE NOTE LIVER PROFILE 2011-05-22 PROTEIN, TOTAL 6.7 6.5-8.0 ALBUMIN 3.9 3.5-5.0 BILIRUBIN, TOTAL 0.4 0.0-1.0 BILIRUBIN, DIRECT 0.2 0.0-0.5 ALK. PHOS. 98 39-117 GOT 18 <3-31 GPT 16 <6-31 CBC w DIFF 2011-05-22 WBC 7.8 4.8-10.8 ABSOLUTE NEUTROPHIL COUNT 4.8 2.2-7. 9 RBC 4.57 4.20-5.50 HEMOGLOBIN 11.4 12.0-16.0 HEMATOCRIT 36.2 37-47 MCV 79.1 80-98 MCH 24.9 27.0-33.0 MCHC 31.5 31.0-35.0 PLATELET COUNT 327 160-400 RDW 15.6 11.0-16.0 NEUTROPHILS 61.3 45-73 LYMPHOCYTES 28.8 20-40 MONOCYTES 7.4 2-11 EOSINOPHILS 1.9 0-4 BASOPHILS 0.7 0-2 SED RATE (ESR) 2011-05-22 SED RATE 48 0-20 CBC with MANUAL DIFFERENTIAL 2011-04-17 WBC 20.3 4.8-10.8 ABSOLUTE NEUTROPHIL COUNT 16.2 2.2-7. 9 RBC 4.36 4.20-5.50 HEMOGLOBIN 10.7 12.0-16.0 HEMATOCRIT 33.4 37-47 MCV 76.7 80-98 MCH 24.6 27.0-33.0 MCHC 32.1 31.0-35.0 PLATELET COUNT 368 160-400 RDW 14.6 11.0-16.0 SEGS 72 45-73 BANDS 12 3-5 LYMPHOCYTES 14 20-40 MONOCYTES 2 2-11 PLATELET ESTIMATE NORMAL NORMAL PLATELET MORPHOLOGY NORMAL NORMAL RBC MORPHOLOGY 1+ HYPO NORMAL RBC MORPHOLOGY 1+ ANISO NORMAL RBC MORPHOLOGY 1+ MICRO NORMAL SED RATE (ESR) 2011-04-17 SED RATE 45 0-20 REASON FOR VISIT abd pain, abd pain, prior auth for [employer], not getting covered, ulcerative rectosigmoiditis,screening,gerd,earlly satiety, Patient presents today for a rectal sigmoiditis, patient presents today for 6month follow up rectosigmoiditis, does not carry 75 mg tabs of azathioprine, patient presents today for Follow up rectal sigmoiditis, RECTAL SIGMOIDITIS, ? blood work, Pt no show, patient presents today for RECTAL SIGMOIDITIS, RECTAL SIGMOIDITIS, patient presents today for chronic recto sigmoiditis, patient presents today for 4 month follow up, refill, 6 month f/u, refill request, refill, 6 month f/u, REFILL REQUEST, refills, Follow Up, Pt no show, F/U, no show, Follow up, r/s f/u, refill, refill, no show, 6 month f/u, Med list, refill request, continue meds?, refill, has a question, Refill, 6 month f/u, call back, f/u, Followup, refill , Followup, ? of new insurance, Med. not working & needs appointment, Followup, f/u, Had to R/S appointment, wants asacol, 1 month f/u, 2 week follow-up, follo w-up Insurance Providers [facility] Member Patient Patient Patient Patient Patient Subscriber Subscriber Subscriber Group Insurance Plan Plan Plan Plan ID Relationship Address Phone Name Date of ID Name Date of No Type Insurance Insurance Insurance Coverage to Subscriber Address Phone Name Dates [facility] [id number] [facility] [place] [phone] [id number] [facility] [id number] Health [place] Plan [facility] Plan [id number] [facility]/[place] [id number] [facility] self [place] [phone] [id number] [place] [address] MEDICAID [id number] MEDICAID self [place] [id number] OF [place] [id number] [address]
[2022-03-30 22:56] LABS: MANUAL DIFF FLAG NO
[2022-03-30 22:59] LABS: Basophils Percent Auto 0.4 % (0-2); Eosinophils Absolute Auto 0.1 X10*3/uL (0.0-0.4); Eosinophils Percent Auto 1.7 % (0-4); Hematocrit 39.7 % (37.0-47.0); Hemoglobin 12.6 g/dl (12.0-16.0); Imm Gran Abs Auto 0.01 X10*3/uL (0.00-0.03); Imm Gran Pct Auto 0.1 % (0.0-0.4); Lymphocytes Absolute Auto 1.8 X10*3/uL (1.2-4.9); Lymphocytes Percent Auto 25.7 % (20-40); Mean Corpuscular HGB Conc 31.7 g/dl (31.0-35.0); Mean Corpuscular Hemoglobin 26.7 pg (27.0-33.0); Mean Corpuscular Volume 84.1 fL (80.0-98.0); Mean Platelet Volume 10.7 fL (9.4-12.3); Monocytes Absolute Auto 0.6 X10*3/uL (0.1-1.2); Monocytes Percent Auto 8.1 % (2-11); Neutrophils Absolute Auto 4.4 x10*3/uL (2.0-8.3); Platelet Count 236 X10*3/uL (160-400); Red Blood Count 4.72 X10*6/uL (4.20-5.50); Red Cell Distribution Width 14.2 % (11.0-16.0); White Blood Count 6.9 X10*3/uL (4.8-10.8)
[2022-03-30 23:15] LABS: Alanine Aminotransferase 19 U/L (0-31); Albumin Level 3.8 g/dL (3.5-5.0); Alkaline Phosphatase 123 U/L (39-117); Anion Gap 14 (12-20); Aspartate Amino Transferase 23 U/L (5-31); Bilirubin Total 0.3 mg/dL (0.0-1.0); Blood Urea Nitrogen 16 mg/dL (9-16); Calcium 8.6 mg/dL (8.4-10.2); Carbon Dioxide 24 mmol/L (22-29); Chloride 105 mmol/L (96-108); Creatinine Clr Calc Pharmacy 97.7; Estimated Glomerular Filt Rate > 60; Glucose Random 182 mg/dL (60-115); Potassium 3.6 mmol/L (3.3-5.1); Sodium 139 mmol/L (135-145); Total Protein 6.7 g/dL (6.5-8.0)
[2022-03-30 23:20] LABS: Troponin-I High Sensitivity < 3.5 ng/L (<3.5-17.0)
[2022-03-30 23:38] LABS: Influenza A PCR NEGATIVE (Negative); Influenza B PCR NEGATIVE (Negative); Resp Syncy Virus RNA Qual PCR NEGATIVE (Negative); SARS COV2 PCR INHOUSE NEGATIVE (Negative)
--- NOTE | 2022-03-30 23:50 | ED.CHESTPAIN ---
HPI - Chest Pain General Chief Complaint: Chest Pain Stated Complaint: chest and back pain Time Seen by Provider: 03/30/22 22:52 Source: patient Mode of arrival: ambulatory Limitations: no limitations History of Present Illness HPI narrative: Patient comes to the emergency room complaining of lower back pain intermittently for approximately 6 months. Patient denies urinary incontinence /retention, no radiation to the lower extremities. However, patient came today because for the last week patient has been having right-sided chest pain. Patient states that she has been under a lot of stress, currently started the divorce process and since then, patient has been having worsening of her symptoms both back pain and chest pain. Furthermore, patient states that she has fibromyalgia and her pain has been worsening. Patient complaining of feeling very anxious for the last week. Related Data Home Medications Medication Instructions Recorded Confirmed albuterol sulfate 90 mcg/actuation 2 puff inhalation Q6H PRN Wheezing 07/25/20 07/25/20 aerosol inhaler (ProAir HFA) azathioprine 50 mg tablet 50 mg PO DAILY 07/25/20 07/25/20 fluticasone 500 mcg-salmeterol 50 1 inh inhalation BID 07/25/20 07/25/20 mcg/dose blistr powdr for inhalation (Advair Diskus) fluticasone propionate 50 2 spray intranasal DAILY 07/25/20 07/25/20 mcg/actuation nasal spray,suspension (Flonase Allergy Relief) loratadine 10 mg tablet (Allergy 10 mg PO DAILY 07/25/20 07/25/20 Relief (loratadine)) montelukast 10 mg tablet 10 mg PO DAILY 07/25/20 07/25/20 naproxen 500 mg tablet (Naprosyn) 500 mg PO BID 07/25/20 07/25/20 omeprazole 20 mg capsule,delayed 20 mg PO BID 07/25/20 07/25/20 release losartan 50 mg-hydrochlorothiazide 1 tab PO DAILY 03/01/21 03/01/21 12.5 mg tablet Previous Rx's Medication Instructions Recorded amitriptyline 50 mg tablet 50 mg PO BEDTIME #30 tabs 07/25/20 cock up splint #2 ea 07/27/21 cyclobenzaprine 10 mg tablet 10 mg PO TID PRN muscle spasm #14 12/16/21 tabs epinephrine 0.3 mg/0.3 mL 0.3 mg (0.3 mL) IM Q4H PRN 12/16/21 injection, auto-injector (EpiPen) anaphylaxis #2 ea lidocaine 5 % topical patch 1 patch topical DAILY #15 ea 12/16/21 (Lidoderm) Allergies Allergy/AdvReac Type Severity Reaction Status Date / Time shrimp Allergy Intermediate SWELLING Verified 03/30/22 22:31 cat dander [cats] Allergy Unknown Unknown Verified 03/30/22 22:31 pollen extracts Allergy Unknown Unknown Verified 03/30/22 22:31 walnut Allergy Unknown Unknown Verified 03/30/22 22:31 bee pollen [bee stings] Allergy Wheezing Verified 03/30/22 22:31 dog dander [dogs] AdvReac Unknown Unknown Verified 03/30/22 22:31 Review of Systems Review of Systems: Constitutional : No Weight loss, No Fever, No Chills, No Night Sweats, No Fatigue, No Malaise ENT/Mouth : No Hearing loss, No Ear Pain, No Nasal Congestion, No Sinus Pain, No Hoarseness, No sore throat, No Rhinorrhea, No Swallowing Difficulty Eyes: No Eye Pain, No Swelling, No Redness, No Foreign Body, No Discharge, No Vision Changes Cardiovascular : complaining of constant right-sided Chest Pain for a week, No SOB, No Dyspnea on Exertion, No Orthopnea, No Edema, No Palpitations Respiratory : No Cough, No Sputum, No Wheezing, No Smoke Exposure, No Dyspnea Gastrointestinal : No Nausea, No Vomiting, No Diarrhea, No Constipation, No abdominal Pain, No Hematochezia, No Melena Genitourinary : no irregular bleeding, No Dysuria, No Urinary Frequency, No Hematuria, No Urinary Incontinence, No Urgency, No Flank Pain, No Urinary Flow Changes, No Hesitancy Musculoskeletal : Complaining of chronic lower back pain with no neurological deficits,No joint pain, complaining of fibromyalgia exacerbation Skin : No Skin Lesions, No rash Neuro : No Weakness, No Numbness, No Paresthesias, No Loss of Consciousness, No Dizziness, No Headache Psych : No Anxiety/Panic, No Depression, No SI/HI/AH/VH, No Social Issues, Heme/Lymph: No Bruising, No Bleeding,No Lymphadenopathy Endocrine : No Polyuria, No Polydipsia, No Temperature Intolerance PMFSH Past Medical History Medical History Asthma Fibromyalgia GERD (gastroesophageal reflux disease) Sleep apnea Ulcerative colitis Surgical History H/O colonoscopy History of Social History Social History Household Members: Spouse Housing: Apartment Alcohol intake: never Patient Tobacco Use Status: Never used Tobacco Advance Directives: No Advance Directives Information Provided: No Physical Exam Vital Signs: Vital Signs: Last Vital Signs Temp 97.8 F 03/30/22 22:31 Pulse 78 03/30/22 22:31 Resp 17 03/30/22 22:31 BP 150/85 H 03/30/22 22:31 Pulse Ox 100 03/30/22 22:31 O2 Del Method 03/30/22 22:31 BMI result Body Mass Index 36.1 Const: Other: Appearance: Alert. Oriented X3. No acute distress. Eyes: Pupils equal, round and reactive to light. ENT: Pharynx normal. Neck: Normal inspection. Neck supple. No lymph nodes noted. No crepitus CVS: Normal heart rate and rhythm. Pulses normal. Normal S1 and S2, reproducible chest pain to palpation on the right side Respiratory: No respiratory distress. Breath sounds normal. No Wheezing. No rales Abdomen: Soft and nontender. No rigidity. No distention. Skin: Skin warm and dry. Normal skin color. Normal skin turgor. back: No pain to palpation, negative straight leg raise test bilaterally Extremities: No lower extremity edema. No Lacerations. No Rash Neuro: Oriented X 3. No motor deficit. No sensory deficit. Moving all extremities. No slurred speech. CN 2 through 12 grossly intact Psych: calm, cooperative, normal affect Course Course Course Narrative: patient's pain is likely secondary to stress. Patient has reproducible chest pain on the right side. Worsening fibromyalgia symptoms. Patient has had history of colitis with rectal bleeding, therefore, NSAIDs not recommended at this time, patient given 1 dose of morphine IM. Hemoglobin stable, troponin stable, EKG nondiagnostic for STEMI Medical Decision Making Medical Decision Making Differential Diagnoses: Differential diagnosis ( anxiety, depression, fibromyalgia, sciatica, disc herniation, musculoskeletal pain) Lab Attestation: I reviewed the patient's lab results. ( troponin within normal limits, H&H stable) Independent interpretation of EKG, rhythm strip, radiology study: Independent interp EKG,rhythm strip, radiology study I performed an independent interpretation of the: EKG My interpretation is sinus rhythm, heart rate 68, nonspecific T-wave inversion in lead V1, no ST segment depression or elevation, QTC 406 Discharge Plan Discharge Clinical Impression: Anxiety, Atypical chest pain, Fibromyalgia Patient Disposition: Home, Self-Care Instructions: Chest Pain (DC) Additional Instructions: Please follow-up with your primary care physician tomorrow. If you have any worsening or new symptoms, please return to the emergency room or call 911 Prescriptions: No Action losartan-hydrochlorothiazide 50-12.5 mg tablet 1 tab PO DAILY epinephrine [EpiPen] 0.3 mg/0.3 mL auto-injector 0.3 mg IM Q4H PRN (Reason: anaphylaxis) Qty: 2 0RF cyclobenzaprine 10 mg tablet 10 mg PO TID PRN (Reason: muscle spasm) Qty: 14 0RF lidocaine [Lidoderm] 5 % adhesive patch,medicated 1 patch topical DAILY Qty: 15 0RF Rx Instructions: leave on most painful area for up to 12 hrs azathioprine 50 mg tablet 50 mg PO DAILY omeprazole 20 mg capsule,delayed release(DR/EC) 20 mg PO BID fluticasone propionate [Flonase Allergy Relief] 50 mcg/actuation spray,suspension 2 spray intranasal DAILY Rx Instructions: administer into each nostril loratadine [Allergy Relief (loratadine)] 10 mg tablet 10 mg PO DAILY fluticasone propion-salmeterol [Advair Diskus] 500-50 mcg/dose blister with device 1 inh inhalation BID albuterol sulfate [ProAir HFA] 90 mcg/actuation HFA aerosol inhaler 2 puff inhalation Q6H PRN (Reason: Wheezing) naproxen [Naprosyn] 500 mg tablet 500 mg PO BID montelukast 10 mg tablet 10 mg PO DAILY amitriptyline 50 mg tablet 50 mg PO BEDTIME Qty: 30 5RF (DME) cock up splint See Rx Instructions .Route .MEDSUPPLY Qty: 2 0RF Rx Instructions: As directed. Wear at night
[2022-03-30 23:56] VITALS: RESP 20
[2022-03-30] MEDS: Morphine Sulfate 2 MG/ML CARTRIDGE IM (23:56)
[2022-03-30 23:58] VITALS: BP 133/69; PULSE 65; RESP 20; O2SAT 99
== END 2022-03-31 00:24 | disposition home or self-care (01) ==
PROVIDERS: Emergency Provider Emergency Medicine; PCP Internal Medicine
DX: F41.9 Anxiety disorder, unspecified (principal); R07.89 Other chest pain; M79.7 Fibromyalgia
CPT/HCPCS: 0241U; 36415; 80053; 84484; 85025; 93005; 96372; 99284; J2270

== ENCOUNTER 2022-04-16 09:00 | Emergency (ER) | payer OTHER, SELFPAY ==
--- NOTE | ~2022-04-16 | XR_ITS ---
EXAMINATION: XR CHEST CLINICAL INFORMATION: Shortness of breath and wheezing COMPARISON: September 11, 2021 and August 30, 2017 TECHNIQUE: 2 views of the chest were obtained. FINDINGS: No significant abnormality is noted involving the heart, lungs, mediastinum, bony thorax or soft tissues. XR/XR chest 2V IMPRESSION: No acute disease.
[2022-04-16 09:46] VITALS: BP 154/82; PULSE 89; RESP 22; TEMP 36.6; O2SAT 95; BMI 35.9
[2022-04-16 10:35] LABS: Influenza A PCR NEGATIVE (Negative); Influenza B PCR NEGATIVE (Negative); Resp Syncy Virus RNA Qual PCR NEGATIVE (Negative); SARS COV2 PCR INHOUSE NEGATIVE (Negative)
[2022-04-16] MEDS: Albuterol Sulfate 7.5 MG, Albuterol/Iprat 2.5/0.5MG 3 ML 3 ML INHALE ×3 (11:06→12:37)
--- NOTE | 2022-04-16 11:07 | ED.ASTHMA ---
HPI - Asthma General Chief Complaint: Upper Respiratory Symptoms Stated Complaint: SOB Time Seen by Provider: 04/16/22 10:46 Source: patient and family Mode of arrival: ambulatory History of Present Illness HPI Narrative: 51-year-old female comes in with worsening shortness of breath and a history of asthma also patient reports and exposure to RSV. She has had chills but no fever and denies any GI or symptoms. Related Data Home Medications Medication Instructions Recorded Confirmed albuterol sulfate 90 mcg/actuation 2 puff inhalation Q6H PRN Wheezing 07/25/20 07/25/20 aerosol inhaler (ProAir HFA) azathioprine 50 mg tablet 50 mg PO DAILY 07/25/20 07/25/20 fluticasone 500 mcg-salmeterol 50 1 inh inhalation BID 07/25/20 07/25/20 mcg/dose blistr powdr for inhalation (Advair Diskus) fluticasone propionate 50 2 spray intranasal DAILY 07/25/20 07/25/20 mcg/actuation nasal spray,suspension (Flonase Allergy Relief) loratadine 10 mg tablet (Allergy 10 mg PO DAILY 07/25/20 07/25/20 Relief (loratadine)) montelukast 10 mg tablet 10 mg PO DAILY 07/25/20 07/25/20 naproxen 500 mg tablet (Naprosyn) 500 mg PO BID 07/25/20 07/25/20 omeprazole 20 mg capsule,delayed 20 mg PO BID 07/25/20 07/25/20 release losartan 50 mg-hydrochlorothiazide 1 tab PO DAILY 03/01/21 03/01/21 12.5 mg tablet Previous Rx's Medication Instructions Recorded amitriptyline 50 mg tablet 50 mg PO BEDTIME #30 tabs 07/25/20 cock up splint #2 ea 07/27/21 cyclobenzaprine 10 mg tablet 10 mg PO TID PRN muscle spasm #14 12/16/21 tabs epinephrine 0.3 mg/0.3 mL 0.3 mg (0.3 mL) IM Q4H PRN 12/16/21 injection, auto-injector (EpiPen) anaphylaxis #2 ea lidocaine 5 % topical patch 1 patch topical DAILY #15 ea 12/16/21 (Lidoderm) prednisone 50 mg tablet 50 mg PO DAILY 4 days #4 tabs 04/16/22 Allergies Allergy/AdvReac Type Severity Reaction Status Date / Time shrimp Allergy Intermediate SWELLING Verified 03/30/22 22:31 cat dander [cats] Allergy Unknown Unknown Verified 03/30/22 22:31 pollen extracts Allergy Unknown Unknown Verified 03/30/22 22:31 walnut Allergy Unknown Unknown Verified 03/30/22 22:31 bee pollen [bee stings] Allergy Wheezing Verified 12 22:31 dog dander [dogs] AdvReac Unknown Unknown Verified 12 22:31 Review of Systems Review of Systems: Pertinent positives and negatives as stated in HPI 10 point review of systems is otherwise negative. [facility] Past Medical History Source: nursing notes reviewed Medical History Asthma Fibromyalgia GERD (gastroesophageal reflux disease) Sleep apnea Ulcerative colitis Surgical History H/O colonoscopy History of Social History Social History Household Members: Spouse Housing: Apartment Alcohol intake: never Patient Tobacco Use Status: Never used Tobacco Advance Directives: No Advance Directives Information Provided: No Physical Exam Vital Signs: Vital Signs: Last Vital Signs Temp 97.8 F 04/16/22 09:46 Pulse 81 04/16/22 12:38 Resp 20 04/16/22 12:38 BP 148/71 H 04/16/22 11:20 Pulse Ox 99 04/16/22 11:20 O2 Del Method 04/16/22 11:20 BMI result Body Mass Index 35.9 VITAL SIGNS: Reviewed. GENERAL: Well developed, well nourished, in no acute distress. HEAD: Normocephalic/atrauatic, EYES: PERRLA, EOMI EARS: Ext canals without abnormality OROPHARYNX: no oral lesions noted, posterior pharynx clear LUNGS: Decreased breath sounds bilaterally with minimal expiratory wheeze, tachypnea is present as well as increased work of breathing. SpO2<95> CARDIOVASCULAR: Regular rate and rhythm without noted murmurs ABDOMEN: Soft, non-tender, non-distended with bowel sounds. MUSCULOSKELETAL: No tenderness, deformities, or effusions noted on gross inspection. EXTREMITIES: No cyanosis, clubbing or edema. SKIN: Inspection of the skin reveals no rashes NEUROLOGIC: Alert and oriented x 4. Strength and sensation to light touch were grossly intact x 4. Course Course Course Narrative: Review of all investigations negative for pneumonia or viral illness, and all evidence suggest acute asthma exacerbation for which the patient received steroids, Mag sulfate, 3 DuoNeb treatments. She is feeling better and is otherwise discharged home on remaining course of short course of steroids and provided with a Ventolin inhaler. Reevaluation(s) Reevaluation #1: On re-evaluation patient reports that she is feeling much improved. However, I did order a 3rd DuoNeb treatment Time: 12:15 Medications Administered Discontinued Medications Generic Name Dose Route Start Last Admin Trade Name Freq PRN Reason Stop Dose Admin Albuterol Sulfate 7.5 mg/ 0 mg 04/16/22 10:53 04/16/22 11:06 Albuterol/Ipratropium 3 ml INHALE 04/16/22 10:54 1 each ONCE ONE Administration Albuterol Sulfate 7.5 mg/ 0 mg 04/16/22 11:06 04/16/22 11:21 Albuterol/Ipratropium 3 ml INHALE 04/16/22 11:07 1 each ONCE ONE Administration Albuterol Sulfate 7.5 mg/ 0 mg 04/16/22 12:23 04/16/22 12:37 Albuterol/Ipratropium 3 ml INHALE 04/16/22 12:24 1 each ONCE ONE Administration Magnesium Sulfate 2 gm in 50 mls @ 25 mls/hr 04/16/22 11:06 04/16/22 12:51 Magnesium Sulfate/H2o IV 04/16/22 13:05 Infused ONCE ONE Infusion Methylprednisolone Sodium Succinate 125 mg 04/16/22 11:06 04/16/22 11:18 Methylprednisolone Sod Succ 125 Mg/2 Ml Vial IVPUSH 04/16/22 11:07 125 mg ONCE ONE Administration Medical Decision Making Medical Decision Making MDM Narrative: 51-year-old female with history and clinical presentation consistent with increased shortness of breath and no fever. Differential Diagnosis Differential Diagnoses: The differential diagnosis associated with the presentation includes Acute asthma exacerbation and less likely felt to be viral or pneumonia. Lab Data Result Diagrams: 04/16/22 11:12 04/16/22 11:12 Labs: Lab Results 04/16/22 04/16/22 04/16/22 Range/Units 09:54 11:12 11:12 WBC 9.9 (4.8-10.8) X10*3/uL RBC 5.07 (4.20-5.50) X10*6/uL Hgb 13.3 (12.0-16.0) g/dl Hct 42.8 (37.0-47.0) % MCV 84.4 (80.0-98.0) fL MCH 26.2 L (27.0-33.0) pg MCHC 31.1 (31.0-35.0) g/dl RDW 14.1 (11.0-16.0) % Plt Count 254 (160-400) X10*3/uL MPV 11.0 (9.4-12.3) fL Immature Gran % (Auto) 0.2 (0.0-0.4) % Neut % (Auto) 70.2 (45-73) % Lymph % (Auto) 21.8 (20-40) % Snyder % (Auto) 6.1 (2-11) % Eos % (Auto) 1.2 (0-4) % Baso % (Auto) 0.5 (0-2) % Lymph # (Auto) 2.2 (1.2-4.9) X10*3/uL Snyder # (Auto) 0.6 (0.1-1.2) X10*3/uL Eos # (Auto) 0.1 (0.0-0.4) X10*3/uL Baso # (Auto) 0.1 (0.0-0.2) X10*3/uL Abs Immat Gran (auto) 0.02 (0.00-0.03) X10*3/uL Absolute Neuts (auto) 7.0 (2.0-8.3) x10*3/uL Absolute Nucleated RBC 0.000 (0.0-0.012) X10*3/uL Nucleated RBC % (auto) 0.0 (0.0-0.2) /100WBC Sodium 140 (135-145) mmol/L Potassium 3.7 (3.3-5.1) mmol/L Chloride 107 (96-108) mmol/L Carbon Dioxide 26 (22-29) mmol/L Anion Gap 11 L (12-20) BUN 9 (9-16) mg/dL Creatinine 0.65 (0.5-1.4) mg/dL Estim Creat Clear Calc 119.9 Estimated GFR > 60 Random Glucose 87 (60-115) mg/dL Calcium 9.0 (8.4-10.2) mg/dL Magnesium 1.8 (1.6-2.6) mg/dL Total Bilirubin 0.4 (0.0-1.0) mg/dL Direct Bilirubin < 0.2 (0.0-0.5) mg/dL AST 19 (5-31) U/L ALT 18 (0-31) U/L Alkaline Phosphatase 125 H (39-117) U/L B-Natriuretic Peptide (<100) pg/mL Total Protein 7.3 (6.5-8.0) g/dL Albumin 4.1 (3.5-5.0) g/dL Influenza Type A (PCR) NEGATIVE (Negative) Influenza Type B (PCR) NEGATIVE (Negative) RSV RNA Qual (PCR) NEGATIVE (Negative) SARS-CoV-2 RNA (RT-PCR) NEGATIVE (Negative) 04/16/22 Range/Units 11:12 WBC (4.8-10.8) X10*3/uL RBC (4.20-5.50) X10*6/uL Hgb (12.0-16.0) g/dl Hct (37.0-47.0) % MCV (80.0-98.0) fL MCH (27.0-33.0) pg MCHC (31.0-35.0) g/dl RDW (11.0-16.0) % Plt Count (160-400) X10*3/uL MPV (9.4-12.3) fL Immature Gran % (Auto) (0.0-0.4) % Neut % (Auto) (45-73) % Lymph % (Auto) (20-40) % Snyder % (Auto) (2-11) % Eos % (Auto) (0-4) % Baso % (Auto) (0-2) % Lymph # (Auto) (1.2-4.9) X10*3/uL Snyder # (Auto) (0.1-1.2) X10*3/uL Eos # (Auto) (0.0-0.4) X10*3/uL Baso # (Auto) (0.0-0.2) X10*3/uL Abs Immat Gran (auto) (0.00-0.03) X10*3/uL Absolute Neuts (auto) (2.0-8.3) x10*3/uL Absolute Nucleated RBC (0.0-0.012) X10*3/uL Nucleated RBC % (auto) (0.0-0.2) /100WBC Sodium (135-145) mmol/L Potassium (3.3-5.1) mmol/L Chloride (96-108) mmol/L Carbon Dioxide (22-29) mmol/L Anion Gap (12-20) BUN (9-16) mg/dL Creatinine (0.5-1.4) mg/dL Estim Creat Clear Calc Estimated GFR Random Glucose (60-115) mg/dL Calcium (8.4-10.2) mg/dL Magnesium (1.6-2.6) mg/dL Total Bilirubin (0.0-1.0) mg/dL Direct Bilirubin (0.0-0.5) mg/dL AST (5-31) U/L ALT (0-31) U/L Alkaline Phosphatase (39-117) U/L B-Natriuretic Peptide 33 (<100) pg/mL Total Protein (6.5-8.0) g/dL Albumin (3.5-5.0) g/dL Influenza Type A (PCR) (Negative) Influenza Type B (PCR) (Negative) RSV RNA Qual (PCR) (Negative) SARS-CoV-2 RNA (RT-PCR) (Negative) Critical Care Time Critical Care Time Critical Care Time: Yes Total Critical Care Time: 30 Attestation: I personally attest to this time spent taking care of the patient. Discharge Plan Discharge Clinical Impression: Asthma exacerbation Patient Disposition: Home, Self-Care Instructions: Asthma (ED) Additional Instructions: 1. Reanudar todos los medicamentos caseros seg?n lo prescrito. 2. Complete el curso corto de esteroides con el que pascual comenzado. Tenga en cuenta que los esteroides aumentan el nivel de az?car, la presi?n arterial miguel y la producci?n de ?cido. 3. Christo un seguimiento con garcias proveedor de atenci?n primaria llamando a la oficina hoy y programando jayshree danny para jayshree reevaluaci?n. Regrese a la christo de emergencias si los s?ntomas empeoran. 1. Resume all home medications as prescribed. 2. Complete the short course of steroids that you have been started on. Please be advised that steroids increase your sugar level, high blood pressure, as well as acid production. 3. Follow-up with your primary care provider by calling the office today and setting up an appointment for re-evaluation. Return to the ER for any worsening symptoms. Prescriptions: New prednisone 50 mg tablet 50 mg PO DAILY 4 Days Qty: 4 0RF No Action losartan-hydrochlorothiazide 50-12.5 mg tablet 1 tab PO DAILY epinephrine [EpiPen] 0.3 mg/0.3 mL auto-injector 0.3 mg IM Q4H PRN (Reason: anaphylaxis) Qty: 2 0RF cyclobenzaprine 10 mg tablet 10 mg PO TID PRN (Reason: muscle spasm) Qty: 14 0RF lidocaine [Lidoderm] 5 % adhesive patch,medicated 1 patch topical DAILY Qty: 15 0RF Rx Instructions: leave on most painful area for up to 12 hrs azathioprine 50 mg tablet 50 mg PO DAILY omeprazole 20 mg capsule,delayed release(DR/EC) 20 mg PO BID fluticasone propionate [Flonase Allergy Relief] 50 mcg/actuation spray,suspension 2 spray intranasal DAILY Rx Instructions: administer into each nostril loratadine [Allergy Relief (loratadine)] 10 mg tablet 10 mg PO DAILY fluticasone propion-salmeterol [Advair Diskus] 500-50 mcg/dose blister with device 1 inh inhalation BID albuterol sulfate [ProAir HFA] 90 mcg/actuation HFA aerosol inhaler 2 puff inhalation Q6H PRN (Reason: Wheezing) naproxen [Naprosyn] 500 mg tablet 500 mg PO BID montelukast 10 mg tablet 10 mg PO DAILY amitriptyline 50 mg tablet 50 mg PO BEDTIME Qty: 30 5RF (DME) cock up splint See Rx Instructions .Route .MEDSUPPLY Qty: 2 0RF Rx Instructions: As directed. Wear at night Referrals: Prerna Bravo MD [Primary Care Provider] - Print Language: Lebanese
[2022-04-16 11:08] VITALS: PULSE 67; RESP 22; O2SAT 98
[2022-04-16 11:18] LABS: MANUAL DIFF FLAG NO
[2022-04-16] MEDS: methylPREDNISolone Sod Succ 125 MG/2 ML VIAL IVPUSH (11:18)
[2022-04-16] MEDS: Magnesium Sulfate/H2O 2 GM/50 ML PIGGYBACK IV (11:18)
[2022-04-16 11:19] LABS: Basophils Absolute Auto 0.1 X10*3/uL (0.0-0.2); Basophils Percent Auto 0.5 % (0-2); Eosinophils Absolute Auto 0.1 X10*3/uL (0.0-0.4); Eosinophils Percent Auto 1.2 % (0-4); Hematocrit 42.8 % (37.0-47.0); Hemoglobin 13.3 g/dl (12.0-16.0); Imm Gran Abs Auto 0.02 X10*3/uL (0.00-0.03); Imm Gran Pct Auto 0.2 % (0.0-0.4); Lymphocytes Absolute Auto 2.2 X10*3/uL (1.2-4.9); Lymphocytes Percent Auto 21.8 % (20-40); Mean Corpuscular HGB Conc 31.1 g/dl (31.0-35.0); Mean Corpuscular Hemoglobin 26.2 pg (27.0-33.0); Mean Corpuscular Volume 84.4 fL (80.0-98.0); Monocytes Absolute Auto 0.6 X10*3/uL (0.1-1.2); Monocytes Percent Auto 6.1 % (2-11); Neutrophils Percent Auto 70.2 % (45-73); Platelet Count 254 X10*3/uL (160-400); Red Blood Count 5.07 X10*6/uL (4.20-5.50); Red Cell Distribution Width 14.1 % (11.0-16.0); White Blood Count 9.9 X10*3/uL (4.8-10.8)
[2022-04-16 11:20] VITALS: BP 148/71; PULSE 68; PULSE 71; RESP 20; O2SAT 98; O2SAT 99
[2022-04-16 11:21] VITALS: PULSE 70; RESP 20; O2SAT 97
--- NOTE | 2022-04-16 11:28 | PC.NURSE ---
pt alert and oriented. complains of increased SOB. hx of asthma. whizzing bilat on upper lobes and diminished on lower lobes bilat. O2 sat 99%. breathing treatment going. gave her solumedrol, IV in place and Macie running.
[2022-04-16 11:39] LABS: Alanine Aminotransferase 18 U/L (0-31); Albumin Level 4.1 g/dL (3.5-5.0); Alkaline Phosphatase 125 U/L (39-117); Anion Gap 11 (12-20); Aspartate Amino Transferase 19 U/L (5-31); Bilirubin Direct < 0.2 mg/dL (0.0-0.5); Bilirubin Total 0.4 mg/dL (0.0-1.0); Blood Urea Nitrogen 9 mg/dL (9-16); Carbon Dioxide 26 mmol/L (22-29); Chloride 107 mmol/L (96-108); Creatinine Clr Calc Pharmacy 119.9; Estimated Glomerular Filt Rate > 60; Glucose Random 87 mg/dL (60-115); Magnesium 1.8 mg/dL (1.6-2.6); Potassium 3.7 mmol/L (3.3-5.1); Sodium 140 mmol/L (135-145); Total Protein 7.3 g/dL (6.5-8.0)
[2022-04-16 11:45] LABS: B Type Natriuretic Peptide 33 pg/mL (<100)
[2022-04-16 12:38] VITALS: PULSE 81; RESP 20; O2SAT 97
[2022-04-16 13:57] VITALS: BP 118/56; PULSE 91; RESP 18; O2SAT 96
[2022-04-16] MEDS: Albuterol Sulfate 90 MCG 8 GM INHALER 2 PUFF INHALE (14:11)
== END 2022-04-16 13:52 | disposition home or self-care (01) ==
PROVIDERS: Physician Assistant; Emergency Provider Student in an Organized Health Care Education/Training Program; PCP Internal Medicine
DX: J45.901 Unspecified asthma with (acute) exacerbation (principal); R06.02 Shortness of breath; R68.83 Chills (without fever); Z20.822 Contact with and (suspected) exposure to COVID-19; Z79.899 Other long term (current) drug therapy
CPT/HCPCS: 0241U; 36415; 71046; 80048; 80076; 83735; 83880; 85025; 94640; 96365; 96375; 99284; 99285; J2930; J3475

== ENCOUNTER → 2022-04-25 08:59 | Outpatient (BNVA) | payer OTHER, SELFPAY | PROVIDERS: PCP Internal Medicine; Visit Provider Internal Medicine Pulmonary Disease | DX: R06.01 Orthopnea (principal); J45.909 Unspecified asthma, uncomplicated; Z91.09 Other allergy status, other than to drugs and biological substances | CPT/HCPCS: 99212 ==

== ENCOUNTER → 2022-05-20 15:33 | Outpatient (REF) | payer OTHER, SELFPAY ==
--- NOTE | 2022-05-20 15:37 | CA_ITS ---
Transthoracic Echocardiogram Patient (Last, First, Middle): Blanca Avendaño, Gender: Female Date of : 1970 Age: 51 Procedure Date: 05/20/2022 Procedure Type: Transthoracic Echocardiogram Location: OP Height: 165.1 cm Weight: 102.97 kg BSA: 2.09 m2 Heart Rate: bpm BP: 140 / 84 mmHg Compliance Technician: Referring MD: Prerna Bravo MD Terrazzo Tile Maker: Maikel Duncan MD Symptoms: I10 HTN I50.22 CHF Study Quality: Adequate ECG Rhythm: Sinus Conclusions: - Essentially normal study with grade 1 diastolic dysfunction Findings Left Ventricle Normal left ventricular size, thickness, and systolic function. The visually estimated ejection fraction is between 55-60%. Spectral Doppler is indicative of an impaired relaxation filling pattern. E/E prime ratio is <8, consistent with normal filling pressures. Evidence suggests grade I (mild) diastolic dysfunction. Right Ventricle Normal right ventricular cavity size and systolic function. Atria Both atria are normal in size. There is no evidence of interatrial shunt. Aortic Valve The aortic valve structure and function is likely normal. There is no aortic valve stenosis. There is no aortic valve regurgitation. Mitral Valve Normal mitral valve structure and function. There is trace mitral valve regurgitation. There is no mitral valve stenosis. Pulmonic Valve The pulmonic valve was not well visualized. Tricuspid Valve Likely normal tricuspid valve structure and function. There is trace tricuspid valve regurgitation. The right ventricular systolic pressure is normal. The right ventricular systolic pressure is 28 mmHg. Normal right atrial pressure. There is no evidence of pulmonary hypertension. Great Vessels All visible segments of the aorta are normal in size. The pulmonary artery was not well visualized. Venous The inferior vena cava is normal in size and collapses greater than 50% with inspiration. Pericardium/Pleural There is no evidence of pericardial effusion. Prior Study Comparison No prior study available for comparison. Measurements 2D Linear Measurements IVSd: 1.00 0.6-0.9/0.6-1.0 cm LVIDd: 4.41 3.9-5.3/4.2-5.9 cm LVIDd Index: 2.11 2.4-3.2/2.2-3.1 cm/m2 LVIDs: 2.74 2.0-3.6 cm LVPWd: 1.02 0.7-1.1 cm Ao Root: 2.70 2.1-3.5 cm LA Diam: 3.80 2.7-3.8/3.0-4.0 cm LAIDs Index: 1.82 1.5-2.3 cm/m2 LV Mass: 187.28 67-162/88-224 g LV Mass Index: 89.61 43-95/49-115 g/m2 LVOT Diam: 1.90 3.0+(-)1.3 cm 2D Systolic Function EF 4C: 55.20 >55% EF 2C: 58.70 >55% EF BiP: 57.90 >55% Mitral Valve MV Pk E: 0.75 MV PK A: 0.91 MV Decel Time: 200.00 E/A: 0.80 E'Lateral: 12.80 E'Medial: 10.00 E/E' Med: 7.50 E/E' Lat: 5.90 PHT: 59.00 MVA PHT: 3.73 Decel [place]: 3.76 Aortic Valve AoV Pk Nilesh: 1.69 AoV Mn Nilesh: 1.07 AoV VTI: 0.36 AoV Pk Grad: 11.00 Aov Mn Grad: 6.00 HUY Cont.VTI: 1.93 LVOT LVOT Pk Nilesh: 1.08 LVOT Mn Nilesh: 0.69 LVOT VTI: 0.24 LVOT Pk Grad: 5.00 LVOT Mn Grad: 3.00 LVOT Diam: 1.90 LVOT Area: 2.84 Diastolic Function MV Pk E: 0.75 MV Pk A: 0.91 E/A: 0.80 E'Medial: 10.00 E/E' Med: 7.50 E' Laterial: 12.80 E/E' Lat: 5.90 Right Ventricle TAPSE (mm): 27.00 TVS' Nilesh: 13.00 Tricuspid Valve TR Pk Nilesh: 2.52 TR Pk Grad: 25.00 RA Press: 3.00 RVSP: 28.00 Great Vessels Aorta Ao Root-2D: 2.70 2.0-3.7 cm Ao Asc: 2.80 2.1-3.4 cm Ao Arch: 2.60 Pulmonary Valve PV Pk Nilesh: 1.11 Peak PV Grad: 5.00 Updated in Other Vendor System with Status of Final Maikel Duncan MD electronically signed on 05/21/2022 8:36:19 AM with status of Final
== END ==
LOC: HO.CARD 15:33
PROVIDERS: PCP Internal Medicine; Visit Provider Internal Medicine
DX: I11.0 Hypertensive heart disease with heart failure (principal); I50.22 Chronic systolic (congestive) heart failure
CPT/HCPCS: 93306

== ENCOUNTER 2022-07-04 12:00 | Outpatient (RCR) | payer OTHER, SELFPAY ==
--- NOTE | 2022-06-06 16:42 | MHC.PT.EP ---
[facility] [place] [facility] [address] Carlos Ulrich [address] [phone] F: [phone] F: [phone] F: [phone] F: [phone] Physical Therapy Plan of Care Date of Evaluation: Date of Surgery: N/A Diagnosis: Lumbar radiculopathy Assessment: Pt is a pleasant 51yo F who presents to PT with low back pain intermittently radiating into L LE. She presents to PT with current impairments in pain, decreased lumbar ROM, soft tissue restrictions, decreased muscle length, decreased core stabilization, decreased hip/glute strength, and impaired posture. She is limited functionally by prolonged sitting, prolonged standing, walking, bending, and sleeping. She is a good candidate for skilled PT in order to address current impairments to facilitate return to PLOF. She is recommended to be seen 2x/week for 4 weeks and will be reassessed at that time. 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 Manual therapy to restore motion and function. Therapeutic exercise to improve strength and flexibility. Neuromuscular re-education for posture and balance. Therapeutic activities to return to functional activities of daily living. Electronically signed by: Louise Pressley, PT, DPT Please sign and return to therapist. Thank you for your referral.
--- NOTE | 2022-08-08 10:12 | MHC.PT.DC ---
[facility] Office [place] [facility] [place] [facility] [address] Carlos Ulrich [address] [phone] F: [phone] F: [phone] F: [phone] F: [phone] Physical Therapy Discharge Report Diagnosis: Lumbar radiculopathy Date of Surgery: N/A Date of Evaluation: 06/06/22 Date of Discharge: 08/08/22 Treatments to Date: 5 Cancellations to Date: 4 No Shows to Date: Discharge Status: Discharge Summary: Pt was seen for PT from 06/06/22-07/04/22. She attended 5 sessions and had 4 cancellations since SOC, including 2 cancellations for her last 2 scheduled appointments. She is being D/C from skilled PT as she has not attended in > 30 days. Pt current level of function unknown at this time. Electronically signed by: Louise Pressley, PT, DPT Please sign and return to therapist. Thank you for your referral.
== END 2022-08-08 10:13 | disposition home or self-care (01) ==
LOC: HO.PT 12:00
PROVIDERS: PCP Internal Medicine; Visit Provider Internal Medicine
DX: M54.16 Radiculopathy, lumbar region (principal)
CPT/HCPCS: 97014; 97110; 97140; 97162

== ENCOUNTER 2022-07-25 19:17 | Emergency (ER) | payer OTHER, SELFPAY ==
[2022-07-25 19:57] VITALS: BP 167/82; PULSE 79; RESP 18; TEMP 36.6; O2SAT 95; BMI 36.6
--- NOTE | 2022-07-25 19:57 | ED.BACK ---
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 performing separately billable procedures or teaching. Total time spent performing critical care was 45 minutes. <Simeon Diaz MD - Last Filed: 07/26/22 01:49> Discharge Plan Discharge Clinical Impression: Suspected cauda equina syndrome, Lumbar back pain with radiculopathy affecting right lower extremity, Lumbar back pain with radiculopathy affecting left lower extremity, Urinary and bowel incontinence <DEBBIE Ievy - Last Filed: 07/25/22 20:00> Prescriptions: No Action Incruse Ellipta 62.5 mcg/actuation blister with device 1 inh PO DAILY Qty: 30 6RF albuterol sulfate [ProAir HFA] 90 mcg/actuation HFA aerosol inhaler 2 puff inhalation Q6H PRN (Reason: Wheezing) 30 Days Qty: 1 6RF losartan-hydrochlorothiazide 50-12.5 mg tablet 1 tab PO DAILY epinephrine [EpiPen] 0.3 mg/0.3 mL auto-injector 0.3 mg IM Q4H PRN (Reason: anaphylaxis) Qty: 2 0RF cyclobenzaprine 10 mg tablet 10 mg PO TID PRN (Reason: muscle spasm) Qty: 14 0RF lidocaine [Lidoderm] 5 % adhesive patch,medicated 1 patch topical DAILY Qty: 15 0RF Rx Instructions: leave on most painful area for up to 12 hrs azathioprine 50 mg tablet 50 mg PO DAILY omeprazole 20 mg capsule,delayed release(DR/EC) 20 mg PO BID fluticasone propionate [Flonase Allergy Relief] 50 mcg/actuation spray,suspension 2 spray intranasal DAILY Rx Instructions: administer into each nostril loratadine [Allergy Relief (loratadine)] 10 mg tablet 10 mg PO DAILY fluticasone propion-salmeterol [Advair Diskus] 500-50 mcg/dose blister with device 1 inh inhalation BID naproxen [Naprosyn] 500 mg tablet 500 mg PO BID montelukast 10 mg tablet 10 mg PO DAILY amitriptyline 50 mg tablet 50 mg PO BEDTIME Qty: 30 5RF (DME) cock up splint See Rx Instructions .Route .MEDSUPPLY Qty: 2 0RF Rx Instructions: As directed. Wear at night furosemide 40 mg tablet 40 mg PO DAILY 30 Days Qty: 30 6RF prednisone 10 mg tablet 10 mg PO DIRECTED 12 Days Qty: 12 0RF Rx Instructions: Take four tabs daily for 3 days, then go down by 1 tab every 3 days. <DEBBIE Ivey - Last Filed: 07/25/22 20:00>
[2022-07-25] MEDS: Lidocaine 4 % Patch ADH..PATCH 1 PATCH TRANSDERMA (22:04)
[2022-07-25] MEDS: Ketorolac Tromethamine 30 MG/ML VIAL IM (22:05)
--- NOTE | 2022-07-25 23:16 | MHC.EDTECH ---
[facility] transfer line called at 2309 per spoke with Candice she stated they are closed to transfers at this time MD aware. [facility] transfer line called at 2312 per spoke with Josi guevara patient demographics,awaiting a call back at this time MD aware.
[2022-07-25 23:23] LABS: Basophils Absolute Auto 0.1 X10*3/uL (0.0-0.2); Basophils Percent Auto 0.5 % (0-2); Eosinophils Absolute Auto 0.1 X10*3/uL (0.0-0.4); Eosinophils Percent Auto 1.3 % (0-4); Hematocrit 39.5 % (37.0-47.0); Hemoglobin 12.2 g/dl (12.0-16.0); Imm Gran Abs Auto 0.01 X10*3/uL (0.00-0.03); Imm Gran Pct Auto 0.1 % (0.0-0.4); Lymphocytes Absolute Auto 2.8 X10*3/uL (1.2-4.9); Lymphocytes Percent Auto 30.1 % (20-40); MANUAL DIFF FLAG NO; Mean Corpuscular HGB Conc 30.9 g/dl (31.0-35.0); Mean Corpuscular Hemoglobin 26.1 pg (27.0-33.0); Mean Corpuscular Volume 84.4 fL (80.0-98.0); Mean Platelet Volume 10.9 fL (9.4-12.3); Monocytes Absolute Auto 0.7 X10*3/uL (0.1-1.2); Monocytes Percent Auto 7.8 % (2-11); Neutrophils Absolute Auto 5.6 x10*3/uL (2.0-8.3); Neutrophils Percent Auto 60.2 % (45-73); Platelet Count 244 X10*3/uL (160-400); Red Blood Count 4.68 X10*6/uL (4.20-5.50); Red Cell Distribution Width 14.6 % (11.0-16.0); White Blood Count 9.3 X10*3/uL (4.8-10.8)
[2022-07-25] MEDS: 0.9 % Sodium Chloride 1,000 ML 999 ML IV (23:26)
[2022-07-25] MEDS: ondansetron HCL 4 MG/2 ML VIAL IVPUSH (23:26)
[2022-07-25] MEDS: HYDROmorphone HCl 1 MG/ML SYRINGE IVPUSH (23:26)
[2022-07-25 23:29] LABS: INTERNATIONAL NORM RATIO 0.9 (0.9-1.1); Prothrombin Time 10.8 SEC (10.0-13.1)
[2022-07-25 23:39] LABS: COVID-19 Test Negative (Negative); IDNOW Serial# 08D9AD1C; IDNOW Serial# BCCEAD1C; Influenza A Negative (Negative); Influenza B2 Negative (Negative)
[2022-07-25 23:46] VITALS: BP 133/65; PULSE 58; RESP 16; TEMP 36.2; O2SAT 93
[2022-07-25 23:47] LABS: Alanine Aminotransferase 20 U/L (0-31); Albumin Level 3.7 g/dL (3.5-5.0); Alkaline Phosphatase 122 U/L (39-117); Anion Gap 12 (12-20); Aspartate Amino Transferase 23 U/L (5-31); Bilirubin Total 0.5 mg/dL (0.0-1.0); Blood Urea Nitrogen 14 mg/dL (9-16); C Reactive Protein 1.11 mg/dL (< or = 0.50); Calcium 8.7 mg/dL (8.4-10.2); Carbon Dioxide 26 mmol/L (22-29); Chloride 107 mmol/L (96-108); Creatinine Clr Calc Pharmacy 107.9; Estimated Glomerular Filt Rate > 60; Glucose Random 93 mg/dL (60-115); Sodium 141 mmol/L (135-145); Total Protein 6.3 g/dL (6.5-8.0)
[2022-07-25 23:56] LABS: Erythrocyte Sedimentation Rate 16 MM/HR (0-20)
--- NOTE | 2022-07-25 23:57 | MHC.EDTECH ---
Addendum entered by Makeda Rogers 07/25/22 23:59: Call was received at [phone] Original Note: Received a call from [facility] Transfer Line spoke to Candice she stated they have to decline patient due to capacity.MD turner
--- NOTE | 2022-07-26 00:55 | PC.NURSE ---
Pt. asleep with at bedside. Pt. reports severe pain in back. is working on a transfer to another facility for MRI.
--- NOTE | 2022-07-26 01:07 | MHC.EDTECH ---
[facility] Transfer Line called at 2359 per spoke with Janet gave patient demographics,asked to speak with . At 0035 accepted patient to the [facility] in [facility] patient is going ED to ED. Alicia called at 0046 for a BLS transfer,ETA 30mins.RN aware
[2022-07-26 01:46] LABS: Appearance Urine Cloudy; Color Urine Yellow; Glucose Urine UA Negative (Negative); Leukocyte Esterase Urine Small (1+) (Negative); Nitrite Urine Negative (Negative); PH 6.5 (5.0-9.0); Specific Gravity - Urine 1.025 (1.005-1.025); UMIC TRIGGER UACC YES; Urine Blood Large (3+) (Negative); Urine Ketones Trace mg/dL (Negative); Urine Protein 30 (1+) mg/dL (Neg-Trace)
--- NOTE | 2022-07-26 01:46 | MHC.EDTECH ---
Alicia arrived for transport at 0146.
[2022-07-26 01:55] LABS: Bacteria Urine None Seen (None Seen); Hyaline Casts Urine 0-2 /LPF (0-2); RBC Urine >20 /HPF (0-2); UACC Culture Trigger YES; WBC Urine 0-5 /HPF (0-5)
== END 2022-07-26 02:38 | disposition short-term general hospital (02) ==
PROVIDERS: Emergency Provider Emergency Medicine Emergency Medical Services; PCP Internal Medicine
DX: M54.16 Radiculopathy, lumbar region (principal); R32 Unspecified urinary incontinence; M54.50 Low back pain, unspecified; Z20.822 Contact with and (suspected) exposure to COVID-19; Z20.828 Contact with and (suspected) exposure to other viral communicable diseases; Z79.899 Other long term (current) drug therapy
CPT/HCPCS: 36415; 80053; 81001; 82550; 85025; 85610; 85652; 85730; 86140; 87086; 87502; 87635; 96361; 96372; 96374; 96375; 99285; J1170; J1885; J2405

== ENCOUNTER → 2022-09-19 10:25 | Outpatient (BNVA) | payer OTHER, SELFPAY | PROVIDERS: PCP Internal Medicine; Visit Provider Internal Medicine Pulmonary Disease | DX: J45.909 Unspecified asthma, uncomplicated (principal); Z91.09 Other allergy status, other than to drugs and biological substances | CPT/HCPCS: 99212 ==

== ENCOUNTER 2023-08-07 16:08 | Outpatient (REF) | payer OTHER, SELFPAY ==
--- NOTE | ~2023-08-07 | MM_ITS ---
EXAMINATION: MM SCREENING DIGITAL BREAST TOMOSYNTHESIS, BILATERAL CLINICAL INFORMATION: Screening. Asymptomatic. COMPARISON: Mammography: This study is compared with prior exams dating back to 2015. TECHNIQUE: Digital breast tomosynthesis is performed in both the craniocaudal and mediolateral oblique views along with computer-aided detection (CAD). Synthesized 2D images are generated from the tomosynthesis. FINDINGS: There are scattered areas of fibroglandular density (ACR BI-RADS breast composition Category b). There are no significant masses, abnormal calcifications, or other abnormalities. MM/MM tomosynthesis screening BI IMPRESSION: No mammographic evidence of malignancy. ASSESSMENT: BI-RADS BI-RADS 1 - Negative RECOMMENDATION: Routine annual mammography screening. 1 year F/U This examination should not preclude the clinical evaluation of a suspicious palpable abnormality. This patient's information was entered into a reminder system with a target due date for their next mammogram.
== END 2023-08-07 16:09 | disposition home or self-care (01) ==
LOC: HO.MAMMO 16:08
PROVIDERS: PCP Internal Medicine; Visit Provider Internal Medicine
DX: Z12.31 Encounter for screening mammogram for malignant neoplasm of breast (principal)
CPT/HCPCS: 77063; 77067

== ENCOUNTER → 2023-08-07 16:15 | Outpatient (BNV) | payer OTHER, SELFPAY | PROVIDERS: PCP Internal Medicine; Visit Provider Radiology Diagnostic Radiology | DX: Z12.31 Encounter for screening mammogram for malignant neoplasm of breast (principal) | CPT/HCPCS: 77063; 77067 ==

== ENCOUNTER 2023-11-13 17:29 | Emergency (ER) | payer OTHER, SELFPAY ==
--- NOTE | ~2023-11-13 | XR_ITS ---
EXAMINATION: XR FOOT, LEFT CLINICAL INFORMATION: Left foot tenderness and swelling COMPARISON: None available. TECHNIQUE: AP, lateral, and oblique views of the left foot. FINDINGS: Focal soft tissue swelling over the dorsal aspect of the hindfoot. The bones are normal. No fracture. Alignment is anatomic. Joint spaces are maintained. XR/XR foot LT min 3V IMPRESSION: Soft tissue swelling. No acute osseous process.
--- NOTE | 2023-11-13 17:33 | ED_ITS ---
HPI - General Adult General Chief complaint: Extremity Injury, Lower Stated complaint: Left foot pain Time Seen by Provider: 11/13/23 19:11 Source: patient Mode of arrival: ambulatory Limitations: no limitations History of Present Illness ED Provider: Dr. Dianne Roa HPI narrative: Patient comes to the emergency room complaining of a lump on the left foot. Patient states it has been there for months and has gradually been getting bigger. It does not hurt much, it sometimes feels like a burning sensation and then goes away. Patient denies any injury. Related Data Home Medications ?Medication ?Instructions ?Recorded ?Confirmed azathioprine 50 mg tablet 50 mg PO DAILY 07/25/20 07/25/20 fluticasone propionate 50 2 spray intranasal DAILY 07/25/20 07/25/20 mcg/actuation nasal spray,suspension (Flonase Allergy Relief) loratadine 10 mg tablet (Allergy 10 mg PO DAILY 07/25/20 07/25/20 Relief (loratadine)) montelukast 10 mg tablet 10 mg PO DAILY 07/25/20 07/25/20 naproxen 500 mg tablet (Naprosyn) 500 mg PO BID 07/25/20 07/25/20 omeprazole 20 mg capsule,delayed 20 mg PO BID 07/25/20 07/25/20 release losartan 50 mg-hydrochlorothiazide 1 tab PO DAILY 03/01/21 03/01/21 12.5 mg tablet Previous Rx's ?Medication ?Instructions ?Recorded amitriptyline 50 mg tablet 50 mg PO BEDTIME #30 tabs 07/25/20 cock up splint #2 ea 07/27/21 cyclobenzaprine 10 mg tablet 10 mg PO TID PRN muscle spasm #14 12/16/21 tabs epinephrine 0.3 mg/0.3 mL 0.3 mg (0.3 mL) IM Q4H PRN 12/16/21 injection, auto-injector (EpiPen) anaphylaxis #2 ea lidocaine 5 % topical patch 1 patch topical DAILY #15 ea 12/16/21 (Lidoderm) furosemide 40 mg tablet 40 mg PO DAILY 30 days #30 tabs 04/25/22 umeclidinium 62.5 mcg/actuation 1 inh PO DAILY #30 ea 05/14/22 blister powder for inhalation (Incruse Ellipta) fluticasone fur. 200 mcg-umeclid 1 inh inhalation DAILY 30 days #1 09/19/22 62.5 mcg-vilant 25 mcg ea inhalat.powder (Trelegy Ellipta) Allergies Allergy/AdvReac Type Severity Reaction Status Date / Time shrimp Allergy Intermediate SWELLING Verified 11/13/23 17:35 cat dander [cats] Allergy Unknown Unknown Verified 11/13/23 17:35 pollen extracts Allergy Unknown Unknown Verified 11/13/23 17:35 walnut Allergy Unknown Unknown Verified 11/13/23 17:35 bee pollen [bee stings] Allergy Wheezing Verified 11/13/23 17:35 dog dander [dogs] AdvReac Unknown Unknown Verified 11/13/23 17:35 Review of Systems Review of Systems: Constitutional : No Weight loss, No Fever, No Chills, No Night Sweats, No Fatigue, No Malaise ENT/Mouth : No Hearing loss, No Ear Pain, No Nasal Congestion, No Sinus Pain, No Hoarseness, No sore throat, No Rhinorrhea, No Swallowing Difficulty Eyes: No Eye Pain, No Swelling, No Redness, No Foreign Body, No Discharge, No Vision Changes Cardiovascular : No Chest Pain, No SOB, No Dyspnea on Exertion, No Orthopnea, No Edema, No Palpitations Respiratory : No Cough, No Sputum, No Wheezing, No Smoke Exposure, No Dyspnea Gastrointestinal : No Nausea, No Vomiting, No Diarrhea, No Constipation, No abdominal Pain, No Hematochezia, No Melena Genitourinary : no irregular bleeding, No Dysuria, No Urinary Frequency, No Hematuria, No Urinary Incontinence, No Urgency, No Flank Pain, No Urinary Flow Changes, No Hesitancy Musculoskeletal : No joint pain, No Myalgias, No Joint Swelling. Complaining of a growing cyst on the dorsum of the left foot for several months Skin : No Skin Lesions, No rash Neuro : No Weakness, No Numbness, No Paresthesias, No Loss of Consciousness, No Dizziness, No Headache Psych : No Anxiety/Panic, No Depression, No SI/HI/AH/VH, No Social Issues, Heme/Lymph: No Bruising, No Bleeding,No Lymphadenopathy Endocrine : No Polyuria, No Polydipsia, No Temperature Intolerance PMFSH Past Medical History Medical History Sleep apnea Asthma GERD (gastroesophageal reflux disease) Fibromyalgia Ulcerative colitis Surgical History History of H/O colonoscopy Social History Social History Household Members: Spouse Housing: Apartment Alcohol intake: never Patient Tobacco Use Status: Never used Tobacco Do you have a plan to hurt others: No Plan Physical Exam ED Vital Signs: Vital Signs - 24 hr 11/13/23 17:34 Temperature 96.9 F Pulse Rate 85 Respiratory Rate 16 Blood Pressure 142/79 H Pulse Oximetry 96 Oxygen Delivery Method Room Air BMI result Body Mass Index 39.1 Const Other: Appearance: Alert. Oriented X3. No acute distress. Eyes: Pupils equal, round and reactive to light. ENT: Pharynx normal. Neck: Normal inspection. Neck supple. No lymph nodes noted. No crepitus CVS: Normal heart rate and rhythm. Pulses normal. Normal S1 and S2 Respiratory: No respiratory distress. Breath sounds normal. No Wheezing. No rales Abdomen: Soft and nontender. No rigidity. No distention. Skin: Skin warm and dry. Normal skin color. Normal skin turgor. Extremities: No lower extremity edema. No Lacerations. No Rash. Patient has a ganglion cyst approximately 2 cm x 2 cm wide. It is not significantly elevated. Mobile. Neuro: Oriented X 3. No motor deficit. No sensory deficit. Moving all extremities. No slurred speech. CN 2 through 12 grossly intact Psych: calm, cooperative, normal affect Course Course Course Narrative: This is a rapid medical exam performed by Anastasia Grover NP: Additional HPI, ROS, PE not included below will be deferred to primary provider. Patient is a [age]-year-old female presenting to the ED with complaint of tender mass to left dorsal foot. Increasing in size. Plan: xray Medical Decision Making Medical Decision Making MDM Narrative: I discussed the x-ray with the patient, no acute findings. -I discussed with the patient her physical exam, patient has a ganglion cyst on the dorsum of the foot. At this time, is not significantly elevated to be able to drain fluid -discussed with the patient that with compression and with time it may resolve b y itself, but if he gets very, patient may need drainage. At this time not indicated. Patient agrees with plan. Discharge Plan Discharge Clinical Impression: Ganglion cyst of foot Patient Disposition: Home, Self-Care Instructions: Ganglion Cysts (ED) Additional Instructions: Please follow-up with your primary care physician tomorrow. If you have any worsening or new symptoms, please return to the emergency room or call 911 Prescriptions: No Action Incruse Ellipta 62.5 mcg/actuation blister with device 1 inh PO DAILY Qty: 30 6RF losartan-hydrochlorothiazide 50-12.5 mg tablet 1 tab PO DAILY epinephrine [EpiPen] 0.3 mg/0.3 mL auto-injector 0.3 mg IM Q4H PRN (Reason: anaphylaxis) Qty: 2 0RF cyclobenzaprine 10 mg tablet 10 mg PO TID PRN (Reason: muscle spasm) Qty: 14 0RF lidocaine [Lidoderm] 5 % adhesive patch,medicated 1 patch topical DAILY Qty: 15 0RF Rx Instructions: leave on most painful area for up to 12 hrs azathioprine 50 mg tablet 50 mg PO DAILY omeprazole 20 mg capsule,delayed release(DR/EC) 20 mg PO BID fluticasone propionate [Flonase Allergy Relief] 50 mcg/actuation spray,suspension 2 spray intranasal DAILY Rx Instructions: administer into each nostril loratadine [Allergy Relief (loratadine)] 10 mg tablet 10 mg PO DAILY naproxen [Naprosyn] 500 mg tablet 500 mg PO BID montelukast 10 mg tablet 10 mg PO DAILY amitriptyline 50 mg tablet 50 mg PO BEDTIME Qty: 30 5RF (DME) cock up splint See Rx Instructions .Route .MEDSUPPLY Qty: 2 0RF Rx Instructions: As directed. Wear at night furosemide 40 mg tablet 40 mg PO DAILY 30 Days Qty: 30 6RF Trelegy Ellipta 200-62.5-25 mcg blister with device 1 inh inhalation DAILY 30 Days Qty: 1 6RF Print Language: Kuwaiti
[2023-11-13 17:34] VITALS: BP 142/79; PULSE 85; RESP 16; TEMP 36.1; O2SAT 96; BMI 39.1
--- NOTE | 2023-11-13 19:26 | PC.NURSE ---
Eval by MD in triage, cleared for dc home.
[2023-11-13 19:34] VITALS: BP 00/00; PULSE 0; RESP 0; TEMP -17.7; TEMP 0; O2SAT 0
== END 2023-11-13 19:34 | disposition home or self-care (01) ==
LOC: HO.ED 19:27
PROVIDERS: Emergency Provider Emergency Medicine; PCP Internal Medicine
DX: M67.462 Ganglion, left knee (principal); Z79.899 Other long term (current) drug therapy
CPT/HCPCS: 73630; 99282; 99283

== ENCOUNTER 2024-01-09 11:53 | Outpatient (REF) | payer OTHER, SELFPAY ==
[2024-01-09 13:06] LABS: Alanine Aminotransferase 29 U/L (0-31); Alkaline Phosphatase 125 U/L (39-117); Anion Gap 11 (12-20); Aspartate Amino Transferase 28 U/L (5-31); Bilirubin Total 0.6 mg/dL (0.0-1.0); Blood Urea Nitrogen 10 mg/dL (9-16); Calcium 9.5 mg/dL (8.4-10.2); Carbon Dioxide 28 mmol/L (22-29); Chloride 106 mmol/L (96-108); Cholesterol 195 mg/dL (<200); Estimated Glomerular Filt Rate > 60; Glucose Random 108 mg/dL (60-115); HDL Cholesterol 55 mg/dL (>40); LDL Cholesterol Calculated 117 mg/dL (<100); Potassium 3.7 mmol/L (3.3-5.1); Sodium 141 mmol/L (135-145); Total Protein 7.6 g/dL (6.5-8.0); Triglycerides 119 mg/dL (<150)
[2024-01-09 13:24] LABS: Thyroid Stimulating Hormone 2.37 uIU/mL (0.32-4.0)
[2024-01-09 13:33] LABS: Folate 6.6 ng/mL (> or = 4.0); Vitamin B12 652 pg/mL (200-900)
== END 2024-01-09 11:54 | disposition home or self-care (01) ==
LOC: HO.LAB 11:53
PROVIDERS: PCP Internal Medicine; Visit Provider Internal Medicine
DX: G62.9 Polyneuropathy, unspecified (principal); I10 Essential (primary) hypertension; J45.30 Mild persistent asthma, uncomplicated; R63.5 Abnormal weight gain
CPT/HCPCS: 36415; 80053; 80061; 82607; 82746; 84443

== ENCOUNTER 2024-01-23 08:42 | Outpatient (AMB) | payer OTHER, SELFPAY ==
[2024-01-23 08:58] VITALS: BP 158/81; PULSE 63; O2SAT 97; BMI 37.3
--- NOTE | 2024-01-23 08:58 | A.OFFVIS_ITS ---
Vital Signs 01/23/24 08:58 Height 5 ft 5 in Weight 224 lb BMI 37.3 BP 158/81 H Blood Pressure Location Lt brachial Position Sitting Pulse 63 Pulse Source Pulse Oximeter Pulse Oximetry (%) 97 Oxygen Delivery Method Room Air Intake Visit Reasons: Lumbar radiculopathy Allergies shrimp Allergy (Intermediate, Verified 01/23/24 08:58) SWELLING cat dander [cats] Allergy (Unknown, Verified 01/23/24 08:58) Unknown pollen extracts Allergy (Unknown, Verified 01/23/24 08:58) Unknown walnut Allergy (Unknown, Verified 01/23/24 08:58) Unknown bee pollen [bee stings] Allergy (Verified 01/23/24 08:58) Wheezing dog dander [dogs] Adverse Reaction (Unknown, Verified 01/23/24 08:58) Unknown Medication List - Last Reconciled 01/23/24 by Kylah Godinez albuterol sulfate 90 mcg/actuation (Ventolin HFA) inhalation albuterol sulfate mg inhalation amlodipine 2.5 mg PO DAILY [cock up splint As directed. Wear at night ] diclofenac sodium 75 mg PO ONCE epinephrine (EpiPen) 0.3 mg (0.3 mL) IM Q4H PRN yyrzdyejmrp-sybfnobam-qnghpcea 200-62.5-25 mcg (Trelegy Ellipta) 1 inh inhalation DAILY 30 days furosemide 40 mg PO DAILY 30 days losartan-hydrochlorothiazide 100-25 mg 1 tab PO DAILY melatonin 10 mg PO BEDTIME PRN montelukast 10 mg PO DAILY HPI Comments Details: Blanca is a very pleasant 53-year-old female who presents to the office today, accompanied by tubing drier Oliverio, for evaluation and management of her chronic lower back pain. newspaper carrier services were offered, patient declined and requested to have her friend assist. Patient complaining of bilateral lower back pain with radiation down the left leg to the foot that started over 1 year ago Attributes the pain to a fall from bed. At the time of injury she was seen in the emergency room, transferred to [facility] where she underwent an MRI to rule out cauda equina. MRI results are unavailable for review. They have been requested. She states they did an MRI and then discharge home with no other interventions. She has not followed up with any Spine Services since the injury. Pain today is rated as a 10/10, constant and worse at night Midline lower back pain with intermittent burning, tingling, electrical pain down the left leg Pain is exacerbated by movements and weather changes. Taking NSAIDs, Tylenol without improvement of her symptoms Completed physical therapy < 1 year ago without improvement of her symptoms Denies history of chiropractor, acupuncture or injections. Has tried massage with no improvement. Denies red flag symptoms including new loss of bowel, bladder or saddle anesthesia In terms of muscle damage condition is described as pulsing, throbbing, pinching, cramping, dull, sore, aching, radiating, stabbing, hot, tingling, tiring, sharp Pain is negatively impacting patient's enjoyment of life, general activity, ability care of herself, ability to perform activities of daily living, sleep, normal function Denies current use of anticoagulants Denies implantable devices, pacemaker or defibrillator Denies current use of tobacco, nicotine, alcohol or illicit substances [facility] Medical History Sleep apnea Asthma GERD (gastroesophageal reflux disease) Fibromyalgia Ulcerative colitis Surgical History History of H/O colonoscopy Social History Household Members: Spouse Housing: Apartment Alcohol intake: never Patient Tobacco Use Status: Never used Tobacco Review of Systems Const All systems reviewed & are unremarkable except as noted in HPI and below Physical Exam Vital Signs: Last Vital Signs Pulse 63 01/23/24 08:58 BP 158/81 H 01/23/24 08:58 Pulse Ox 97 01/23/24 08:58 Oxygen Delivery Method Room Air 01/23/24 08:58 BMI result Body Mass Index 37.3 General: awake, alert, oriented. Answers questions appropriately. Fully engaged in examination. Skin: warm, dry, intact HEENT: Normocephalic. Hearing intact. Cardiac: External chest normal in appearance. Respiratory: No cough, audible wheezing or stridor. Abdomen: without gross distension. MS: No obvious swelling or deformities. Able to stand on bilateral tiptoes and bilateral heels.? Able to transition from sit to stand unassisted. Ambulates with bilaterally normal heel strike and toe off Bilateral lower extremity strength 5/5 Facet loading positive SLR positive on the left Nontender over bilateral PSIS Tenderness over midline lumbar vertebrae and lumbar paraspinal muscles Decreased lumbar range of motion, pain with flexion at 60 degrees, extension at 10 degrees Negative footdrop, negative clonus Neurological: Oriented to person, place, time and situation. Thought process intact. No gait abnormalities appreciated. Psychiatric: Appropriate mood and affect. Good judgment and insight. Assessment & Plan Assessment & Plan (1) Lumbar radiculopathy: Code(s): M54.16 - Radiculopathy, lumbar region Category: Medical Plan Blanca is a very pleasant 53-year-old female who presented to the office today for evaluation management of her chronic lower back pain. History, physical exam and provocative testing consistent with lumbar spondylosis and left lumbar radiculopathy MRI results from [facility] in [place] has been requested for review Lumbar x-ray ordered for evaluation New prescription for methocarbamol 500 mg p.o. t.i.d. as needed. Patient advised on cautions for use. Continue with diclofenac as prescribed by PCP All questions and concerns were answered, patient agrees with the plan. Follow up for MRI review once report received, sooner if needed Orders: Orders XR lumbar spine 4V min Today M54.50 - Low back pain, unspecified Medications: New methocarbamol No driving while taking this medication. Do no take with alcohol or other WALKING DRAGLINE OILER Depressants 500 mg PO TID PRN 90 tabs 1RF muscle spasm Coding Level of Care Code New Pt Level 4 (55514) Complex EM visit Add On G2211 Diagnoses Lumbar radiculopathy M54.16
== END 2024-01-23 09:29 | disposition home or self-care (01) ==
PROVIDERS: PCP Internal Medicine; Visit Provider Registered Nurse Emergency
DX: M54.16 Radiculopathy, lumbar region (principal)
CPT/HCPCS: 99204; G2211

== ENCOUNTER → 2024-01-23 08:42 | Outpatient (BNVA) | payer OTHER, MEDICAID, SELFPAY | PROVIDERS: PCP Internal Medicine; Visit Provider Registered Nurse Emergency | DX: M54.16 Radiculopathy, lumbar region (principal) | CPT/HCPCS: 99202 ==

== ENCOUNTER 2024-01-25 13:48 | Emergency (ER) | payer OTHER, SELFPAY ==
--- NOTE | ~2024-01-25 | CT_ITS ---
EXAMINATION: CT HEAD WITHOUT CONTRAST CLINICAL INFORMATION: 53-year-old female with headache and lump behind right ear COMPARISON: None available. TECHNIQUE: Contiguous axial imaging was performed from the skull base to vertex without intravenous administration of contrast. This CT examination was performed using dose optimization techniques as appropriate, variously including the following: *Automated exposure control *Adjustment of mA and/or kV according to patient size (this includes techniques or standardized protocols for targeted exams where dose is matched to indication/reason for exam; i.e. extremities or head) *Use of iterative reconstruction technique DLP: 748 mGy-cm FINDINGS: There are no intracranial hemorrhage, no evidence of hemorrhagic or edematous stroke or masses and mass effect no midline shift. There is no hydrocephalus. Ventricles and sulci are appropriate for age. Cortical medullary differentiation preserved. There is subcutaneous lesion in the right subcutaneous tissues behind right ear most likely lymph node, measured 0.8 cm there are few smaller sized subcutaneous lesions seen in the occipital scalp. Line osseous structures are unremarkable. Paranasal sinuses and mastoids are well-aerated. CT/CT head/brain wo IV con IMPRESSION: No acute intracranial pathology. Subcutaneous lymph nodes on the right lobe most likely corresponding to palpable lump Electronically signed by: Leonor Cabello MD 01/25/2024 04:04 PM EDT
[2024-01-25 14:04] VITALS: BP 157/84; PULSE 70; RESP 18; TEMP 36.4; O2SAT 98; BMI 39.4
--- NOTE | 2024-01-25 14:04 | ED.GENADULT ---
HPI - General Adult General Chief complaint: Headache Stated complaint: Headache lump on back of head Time Seen by Provider: 01/25/24 16:04 Source: patient Mode of arrival: ambulatory Limitations: no limitations History of Present Illness ED Provider: Fabrice Lang PA-C HPI narrative: 53-year-old female past medical history also of colitis, orthopnea, lumbar radiculopathy, presents to the ED for painful lump behind right ear. Patient denies any ear pain, ear drainage, fever, chills, sore throat, or body aches. Patient denies any weight loss. Related Data Home Medications ?Medication ?Instructions ?Recorded ?Confirmed montelukast 10 mg tablet 10 mg PO DAILY 07/25/20 01/23/24 albuterol sulfate 2.5 mg/3 mL mg inhalation 01/23/24 01/23/24 (0.083 %) solution for nebulization albuterol sulfate 90 mcg/actuation inhalation 01/23/24 01/23/24 aerosol inhaler (Ventolin HFA) amlodipine 2.5 mg tablet 2.5 mg PO DAILY 01/23/24 01/23/24 diclofenac sodium 75 mg 75 mg PO ONCE 01/23/24 01/23/24 tablet,delayed release losartan 100 1 tab PO DAILY 01/23/24 01/23/24 mg-hydrochlorothiazide 25 mg tablet melatonin 10 mg capsule 10 mg PO BEDTIME PRN 01/23/24 01/23/24 Previous Rx's ?Medication ?Instructions ?Recorded cock up splint #2 ea 07/27/21 epinephrine 0.3 mg/0.3 mL 0.3 mg (0.3 mL) IM Q4H PRN 12/16/21 injection, auto-injector (EpiPen) anaphylaxis #2 ea fluticasone fur. 200 mcg-umeclid 1 inh inhalation DAILY 30 days #1 01/09/24 62.5 mcg-vilant 25 mcg ea inhalat.powder (Trelegy Ellipta) furosemide 40 mg tablet 40 mg PO DAILY 30 days #30 tabs 01/09/24 methocarbamol 500 mg tablet 500 mg PO TID PRN muscle spasm #90 01/23/24 tabs naproxen 500 mg tablet 500 mg PO BID PRN pain 7 days #14 01/25/24 tabs Allergies Allergy/AdvReac Type Severity Reaction Status Date / Time shrimp Allergy Intermediate SWELLING Verified 01/25/24 14:06 cat dander [cats] Allergy Unknown Unknown Verified 01/25/24 14:06 pollen extracts Allergy Unknown Unknown Verified 01/25/24 14:06 walnut Allergy Unknown Unknown Verified 01/25/24 14:06 bee pollen [bee stings] Allergy Wheezing Verified 01/25/24 14:06 dog dander [dogs] AdvReac Unknown Unknown Verified 01/25/24 14:06 Review of Systems Review of Systems: Painful lump behind ear Yes all other systems are reviewed and are negative [facility] Past Medical History Medical History Sleep apnea Asthma GERD (gastroesophageal reflux disease) Fibromyalgia Ulcerative colitis Surgical History History of H/O colonoscopy Social History Social History Household Members: Spouse Housing: Apartment Alcohol intake: never Patient Tobacco Use Status: Never used Tobacco Advance Directives: No Advance Directives Information Provided: Yes Physical Exam ED Vital Signs: Vital Signs - 24 hr 01/25/24 14:04 01/25/24 14:52 01/25/24 17:41 Temperature 97.5 F 98.2 F 98.2 F Pulse Rate 70 63 63 Respiratory Rate 18 14 14 Blood Pressure 157/84 H 171/92 H 171/92 H Pulse Oximetry 98 95 95 Oxygen Delivery Method Room Air Room Air Room Air BMI result Body Mass Index 39.4 Const General: cooperative, healthy appearing, comfortable, no acute distress, well developed, alert, awake and Physically active Orientation/consciousness: patient oriented x3 HENMT Head: Yes normal to inspection, Yes No palpable skull fracture present, Yes normocephalic and Yes atraumatic Head images: 1. Tenderness on palpation. Negative erythema, profuse swelling, crepitus, deformity, or stiffness. Ears: hearing grossly normal bilaterally, external ears normal, TM's normal bilaterally, TM normal on the right, TM normal on the left, EAC's normal, mastoids normal and no periauricular adenopathy Throat: Yes posterior oropharynx normal, Yes tonsils normal and Yes uvula midline Eyes General: appearance normal, both eyes and all related structures Neck Neck: Yes normal visual inspection, Yes full ROM, Yes no lymphadenopathy, Yes no meningeal signs, Yes trachea midline, Yes supple, No anterior neck swelling and No tender Chest Chest palpation & inspection: normal inspection of the chest and normal palpation of entire chest wall Resp Effort & Inspection: normal respiratory effort and able to speak in complete sentences Auscultation: clear to auscultation bilaterally Cardio Jugular venous distension: no JVD Heart sounds: S1 normal heart sound present and S2 normal heart sound present GI Inspection: Yes normal to inspection Palpation (GI): Soft to palpation, not firm, nontender, no guarding and not rigid General: No CVA tenderness and Yes no CVA tenderness Back/Spine/Pelvis Back: no CVA tenderness, No CVA tenderness and No back tenderness Skin General skin exam: no rashes or lesions noted, elasticity normal and turgor normal Neuro General: patient oriented x3, gait normal, tone normal, moves all extremities, Normal light touch and pain sensation, no meningeal signs, no focal motor deficits, CN's II-XI intact bilaterally and normal sensation to monofilament Extrem General: Yes normal to inspection, Yes full ROM and Yes capillary refill normal Psych Appearance: grossly normal, well kempt and not disheveled Course Course Course Narrative: RME performed by Nadine Burgess PA-C. Patient is a 53 year old assigned female at presenting to the emergency department with a lump on her head and a headache. Patient states she noticed a lump on her head yesterday, has a headache, and has blurry vision. Detailed physical exam and review of systems are deferred to the residential glazier. Labs and imaging ordered. Patient placed back in the waiting room pending room availability and results. Medical Decision Making Medical Decision Making MDM Narrative: 53-year-old female with painful lymph node past couple of days without any weight loss or night sweats fever, chills, coughing, belly, sore throat, ear pain or ear drainage. Labs are normal. COVID, influenza, RSV negative. CT scan of head negative for any brain pathology positive for right occipital and postaruicular lymphadenopathy. Not suspecting Melvin's angina, retropharyngeal abscess, peritonsillar abscess, or lymphoma. Patient is explained worrisome signs informed to return to ED immediately. Negative for signs of stroke. Patient presently denies any blurry vision. NIH score is 0 Differential Diagnosis Differential Diagnoses: The differential diagnosis associated with the presentation includes (Otitis externa, otitis media, lymphadenopathy,) Admission/Observation Consideration of admission/observation: Escalation of care including admission/observation considered Lab Data MDM Lab Attestation statement: I reviewed the patient's lab results. 01/25/24 14:11 01/25/24 14:11 Labs: Lab Results 01/25/24 Range/Units 14:11 WBC 9.1 (4.8-10.8) X10*3/uL RBC 4.92 (4.20-5.50) X10*6/uL Hgb 13.5 (12.0-16.0) g/dl Hct 42.1 (37.0-47.0) % MCV 85.6 (80.0-98.0) fL MCH 27.4 (27.0-33.0) pg MCHC 32.1 (31.0-35.0) g/dl RDW 14.3 (11.0-16.0) % Plt Count 228 (160-400) X10*3/uL MPV 11.0 (9.4-12.3) fL Immature Gran % (Auto) 0.2 (0.0-0.4) % Neut % (Auto) 63.7 (45-73) % Lymph % (Auto) 29.8 (20-40) % Ector % (Auto) 4.7 (2-11) % Eos % (Auto) 1.2 (0-4) % Baso % (Auto) 0.4 (0-2) % Lymph # (Auto) 2.7 (1.2-4.9) X10*3/uL Ector # (Auto) 0.4 (0.1-1.2) X10*3/uL Eos # (Auto) 0.1 (0.0-0.4) X10*3/uL Baso # (Auto) 0.0 (0.0-0.2) X10*3/uL Abs Immat Gran (auto) 0.02 (0.00-0.03) X10*3/uL Absolute Neuts (auto) 5.8 (2.0-8.3) x10*3/uL Absolute Nucleated RBC 0.000 (0.0-0.012) X10*3/uL Nucleated RBC % (auto) 0.0 (0.0-0.2) /100WBC Sodium 141 (135-145) mmol/L Potassium 3.9 (3.3-5.1) mmol/L Chloride 106 (96-108) mmol/L Carbon Dioxide 23 (22-29) mmol/L Anion Gap 16 (12-20) BUN 14 (9-16) mg/dL Creatinine 0.79 (0.5-1.4) mg/dL Estim Creat Clear Calc 101.5 Estimated GFR > 60 Random Glucose 146 H (60-115) mg/dL Calcium 9.5 (8.4-10.2) mg/dL Magnesium 1.9 (1.6-2.6) mg/dL Total Bilirubin 0.3 (0.0-1.0) mg/dL AST 42 H (5-31) U/L ALT 45 H (0-31) U/L Alkaline Phosphatase 134 H (39-117) U/L Total Protein 7.9 (6.5-8.0) g/dL Albumin 4.1 (3.5-5.0) g/dL Influenza Type A (PCR) NEGATIVE (Negative) Influenza Type B (PCR) NEGATIVE (Negative) RSV RNA Qual (PCR) NEGATIVE (Negative) SARS-CoV-2 RNA (RT-PCR) NEGATIVE (Negative) Independent Interpretation I performed an independent interpretation of an: CT Scan Radiology Impression Discussion of test interpretation with radiology: I have reviewed the radiologist's reading. Independent Historian Clinical information obtained from an independent historian. History obtained from or confirmed by: Other (patient) External Record Review External record reviewed: Other (Prior visits) Prescription Management I considered prescription management with: Pain Medication Discharge Plan Discharge Clinical Impression: Lymphadenopathy Patient Disposition: Home, Self-Care Instructions: Lymphadenopathy (ED) Additional Instructions: Recommend follow-up with primary care provider. Return to the ED immediately for any ear pain, swelling redness behind in front of ear, neck swelling, weight loss,, chills, drooling, change in voice, coughing up blood, chest pain, shortness of breath, dizziness, headache, slurred speech, facial droop,, paralysis of extremities, any other concerning symptoms. FINDINGS: There are no intracranial hemorrhage, no evidence of hemorrhagic or edematous stroke or masses and mass effect no midline shift. There is no hydrocephalus. Ventricles and sulci are appropriate for age. Cortical medullary differentiation preserved. There is subcutaneous lesion in the right subcutaneous tissues behind right ear most likely lymph node, measured 0.8 cm there are few smaller sized subcutaneous lesions seen in the occipital scalp. Line osseous structures are unremarkable. Paranasal sinuses and mastoids are well-aerated. CT/CT head/brain wo IV con IMPRESSION: No acute intracranial pathology. Subcutaneous lymph nodes on the right lobe most likely corresponding to palpable lump Electronically signed by: Leonor Cabello MD 01/25/2024 04:04 PM EDT Prescriptions: New naproxen 500 mg tablet 500 mg PO BID PRN (Reason: pain) 7 Days Qty: 14 0RF No Action furosemide 40 mg tablet 40 mg PO DAILY 30 Days Qty: 30 6RF Trelegy Ellipta 200-62.5-25 mcg blister with device 1 inh inhalation DAILY 30 Days Qty: 1 6RF epinephrine [EpiPen] 0.3 mg/0.3 mL auto-injector 0.3 mg IM Q4H PRN (Reason: anaphylaxis) Qty: 2 0RF montelukast 10 mg tablet 10 mg PO DAILY (DME) cock up splint See Rx Instructions .Route .MEDSUPPLY Qty: 2 0RF Rx Instructions: As directed. Wear at night losartan-hydrochlorothiazide 100-25 mg tablet 1 tab PO DAILY albuterol sulfate [Ventolin HFA] 90 mcg/actuation HFA aerosol inhaler inhalation amlodipine 2.5 mg tablet 2.5 mg PO DAILY albuterol sulfate 2.5 mg /3 mL (0.083 %) solution for nebulization inhalation methocarbamol 500 mg tablet 500 mg PO TID PRN (Reason: muscle spasm) Qty: 90 1RF Rx Instructions: No driving while taking this medication. Do no take with alcohol or other [employer] Depressants diclofenac sodium 75 mg tablet,delayed release (DR/EC) 75 mg PO ONCE melatonin 10 mg capsule 10 mg PO BEDTIME PRN Stand Alone Forms: Work/School Release Interventions: ED Discharge Assessment Last Done: 01/25/24 17:41 Discharge Date/Time: 01/25/24 17:42 Print Language: Iraqi
[2024-01-25 14:16] LABS: MANUAL DIFF FLAG NO
[2024-01-25 14:18] LABS: Basophils Percent Auto 0.4 % (0-2); Eosinophils Absolute Auto 0.1 X10*3/uL (0.0-0.4); Eosinophils Percent Auto 1.2 % (0-4); Hematocrit 42.1 % (37.0-47.0); Hemoglobin 13.5 g/dl (12.0-16.0); Imm Gran Abs Auto 0.02 X10*3/uL (0.00-0.03); Imm Gran Pct Auto 0.2 % (0.0-0.4); Lymphocytes Absolute Auto 2.7 X10*3/uL (1.2-4.9); Lymphocytes Percent Auto 29.8 % (20-40); Mean Corpuscular HGB Conc 32.1 g/dl (31.0-35.0); Mean Corpuscular Hemoglobin 27.4 pg (27.0-33.0); Mean Corpuscular Volume 85.6 fL (80.0-98.0); Monocytes Absolute Auto 0.4 X10*3/uL (0.1-1.2); Monocytes Percent Auto 4.7 % (2-11); Neutrophils Absolute Auto 5.8 x10*3/uL (2.0-8.3); Neutrophils Percent Auto 63.7 % (45-73); Platelet Count 228 X10*3/uL (160-400); Red Blood Count 4.92 X10*6/uL (4.20-5.50); Red Cell Distribution Width 14.3 % (11.0-16.0); White Blood Count 9.1 X10*3/uL (4.8-10.8)
[2024-01-25 14:37] LABS: Alanine Aminotransferase 45 U/L (0-31); Albumin Level 4.1 g/dL (3.5-5.0); Alkaline Phosphatase 134 U/L (39-117); Anion Gap 16 (12-20); Aspartate Amino Transferase 42 U/L (5-31); Bilirubin Total 0.3 mg/dL (0.0-1.0); Blood Urea Nitrogen 14 mg/dL (9-16); Calcium 9.5 mg/dL (8.4-10.2); Carbon Dioxide 23 mmol/L (22-29); Chloride 106 mmol/L (96-108); Creatinine Clr Calc Pharmacy 101.5; Estimated Glomerular Filt Rate > 60; Glucose Random 146 mg/dL (60-115); Magnesium 1.9 mg/dL (1.6-2.6); Potassium 3.9 mmol/L (3.3-5.1); Sodium 141 mmol/L (135-145); Total Protein 7.9 g/dL (6.5-8.0)
[2024-01-25 14:52] VITALS: BP 171/92; PULSE 63; RESP 14; TEMP 36.8; O2SAT 95
[2024-01-25 14:59] LABS: Influenza A PCR NEGATIVE (Negative); Influenza B PCR NEGATIVE (Negative); Resp Syncy Virus RNA Qual PCR NEGATIVE (Negative); SARS COV2 PCR INHOUSE NEGATIVE (Negative)
[2024-01-25 17:41] VITALS: BP 171/92; PULSE 63; RESP 14; TEMP 36.8; O2SAT 95
== END 2024-01-25 17:42 | disposition home or self-care (01) ==
PROVIDERS: Physician Assistant Medical; Emergency Provider Internal Medicine; PCP Internal Medicine
DX: R59.0 Localized enlarged lymph nodes (principal); R51.9 Headache, unspecified; H92.01 Otalgia, right ear; Z03.818 Encounter for observation for suspected exposure to other biological agents ruled out; Z79.899 Other long term (current) drug therapy
CPT/HCPCS: 0241U; 70450; 80053; 83735; 85025; 99284

== ENCOUNTER 2024-01-30 09:07 | Outpatient (REF) | payer OTHER, SELFPAY ==
--- NOTE | ~2024-01-30 | XR_ITS ---
EXAMINATION: XR LUMBAR SPINE 6 VIEWS CLINICAL INFORMATION: Low back pain, unspecified M54.50. Patient states no injury. COMPARISON: XR Lumbar spine 09/02/2017 TECHNIQUE: 6 views of lumbar spine were obtained. FINDINGS: Lumbar spine maintains normal alignment. Vertebral body heights are maintained. There is mild endplate degenerative changes of the thoracic spine. Anterior osteophytes in the lower lumbar spine. No significant foraminal stenosis. XR/XR lumbar spine 4V min IMPRESSION: Mild degenerative disease of the lumbar spine. Electronically signed by: Meri Quigley MD 04/05/2024 01:48 PM CORNEL
== END 2024-01-30 09:08 | disposition home or self-care (01) ==
LOC: HO.XRAY 09:07
PROVIDERS: Visit Provider Registered Nurse Emergency
DX: M54.50 Low back pain, unspecified (principal); J45.909 Unspecified asthma, uncomplicated; R06.01 Orthopnea; Z91.09 Other allergy status, other than to drugs and biological substances
CPT/HCPCS: 72110; 99212

== ENCOUNTER 2024-01-30 09:08 | Outpatient (AMB) | payer OTHER, SELFPAY ==
[2024-01-30 09:18] VITALS: BP 122/77; PULSE 70; O2SAT 98; BMI 39.1
--- NOTE | 2024-01-30 09:18 | MHC.OFFVIS ---
Vital Signs 01/30/24 09:18 Height 5 ft 5 in Weight 234 lb 12.677 oz BMI 39.1 BP 122/77 Blood Pressure Location Lt brachial Position Sitting Pulse 70 Pulse Source Doppler Pulse Oximetry (%) 98 Oxygen Delivery Method Room Air Intake Visit Reasons: Asthma Allergies shrimp Allergy (Intermediate, Verified 01/25/24 14:06) SWELLING cat dander [cats] Allergy (Unknown, Verified 01/25/24 14:06) Unknown pollen extracts Allergy (Unknown, Verified 01/25/24 14:06) Unknown walnut Allergy (Unknown, Verified 01/25/24 14:06) Unknown bee pollen [bee stings] Allergy (Verified 01/25/24 14:06) Wheezing dog dander [dogs] Adverse Reaction (Unknown, Verified 01/25/24 14:06) Unknown HPI HPI Asthma: Details: 53-year-old lady, nonsmoker, with underlying history of ulcerative colitis, now followed for severe persistent asthma.? Patient symptoms previously controlled on Trelegy, however recently changed to Incruse. Patient also stopped using the diuretic therapy and now is complaining of worsening fluid retention and dyspnea on exertion. She denies acute exacerbations. [facility] Medical History (Updated 01/30/24 @ 09:20 by Neva Cabello PA-C) Sleep apnea Asthma GERD (gastroesophageal reflux disease) Fibromyalgia Ulcerative colitis (~2004) Surgical History (Updated 01/30/24 @ 09:20 by Neva Cabello PA-C) History of colonoscopy History of Social History Household Members: Spouse Housing: Apartment Alcohol intake: never Patient Tobacco Use Status: Never used Tobacco Review of Systems Const Denies daytime sleepiness, Denies excessive sweating, Denies fatigue, Denies fever(s), Denies lethargy, Denies malaise, Denies night sweats, Denies snoring and Denies weight loss Eyes Denies blurry vision and Denies itchy eyes ENT Denies nasal congestion, Denies post nasal drip, Denies sinus pain, Denies sinus pressure and Denies other ( Thrush) Card Denies chest pain, Reports pedal edema, Denies dyspnea, Reports dyspnea on exertion, Reports orthopnea and Denies paroxysmal nocturnal dyspnea Resp Denies cough, Denies hemoptysis, Denies excessive phlegm production, Denies dyspnea, Reports dyspnea on exertion, Denies snoring and Reports wheezing GI Denies abdominal pain and Denies heartburn Musc Denies myalgias, Denies arthralgias and Denies joint swelling Skin/Breast Denies rash Neuro Denies memory loss and Denies seizure-like activity Psych Denies abnormal sleep pattern, Denies anxiety and Denies memory loss Endo Denies excessive sweating, Denies fatigue and Denies heat intolerance Alexander/Lymph Denies easy bruising Aller/Immun Denies itchy eyes, Denies seasonal rhinorrhea and Reports wheezing Physical Exam Vital Signs: Last Vital Signs Pulse 70 01/30/24 09:18 BP 122/77 01/30/24 09:18 Pulse Ox 98 01/30/24 09:18 Oxygen Delivery Method Room Air 01/30/24 09:18 BMI result Body Mass Index 39.1 Const General: no acute distress and alert Nutritional Appearance: obese Orientation/consciousness: Other orientation findings ( oriented) HEENT Head: Yes atraumatic Eyes General: appearance normal, both eyes and all related structures Sclerae: sclerae normal EOM: EOMs intact bilaterally Neck Neck: Yes supple Lymphatic: no lymphadenopathy noted Resp Effort & Inspection: normal respiratory effort and no use of accessory muscles Auscultation: wheezes expiratory wheezes (Mild bilateral) Cardio Rate: regular rate Rhythm: regular rhythm Heart sounds: no gallops, no murmurs and no rubs Skin General skin exam: other ( warm) Extrem General: No clubbing, No cyanosis and Yes edema (1+ bilateral) Assessment & Plan Assessment & Plan (1) Asthma: Code(s): J45.909 - Unspecified asthma, uncomplicated Category: Medical Plan: Suboptimally controlled on Incruse, switch to Trelegy. Continue albuterol MDI/nebs. (2) Environmental allergies: Code(s): Z91.09 - Other allergy status, other than to drugs and biological substances Category: Medical Plan: Reasonable control Singulair. Continue current regimen. (3) Orthopnea: Code(s): R06.01 - Orthopnea Category: Medical Plan: Worsening orthopnea and lower extremity edema of diuretic. Restart Lasix at 40 mg daily. Medications: Refilled furosemide 40 mg PO DAILY 30 days 30 tabs 6RF [id number]-cfqlnpyf 200-62.5-25 mcg (Trelegy Ellipta) 1 inh inhalation DAILY 30 days 1 ea 6RF Coding Level of Care Code Est Pt Level 4 (45846) Complex EM visit Add On G2211 Diagnoses Asthma J45.909 Environmental allergies Z91.09 Orthopnea R06.01
== END 2024-01-30 09:40 | disposition home or self-care (01) ==
PROVIDERS: PCP Internal Medicine; Visit Provider Internal Medicine Pulmonary Disease
DX: J45.909 Unspecified asthma, uncomplicated (principal); Z91.09 Other allergy status, other than to drugs and biological substances; R06.01 Orthopnea
CPT/HCPCS: 99214; G2211

== ENCOUNTER 2024-02-27 09:13 | Outpatient (REF) | payer OTHER, SELFPAY ==
[2024-02-27 12:22] LABS: Alanine Aminotransferase 32 U/L (0-31); Albumin Level 3.9 g/dL (3.5-5.0); Alkaline Phosphatase 129 U/L (39-117); Anion Gap 12 (12-20); Aspartate Amino Transferase 33 U/L (5-31); Bilirubin Total 0.5 mg/dL (0.0-1.0); Blood Urea Nitrogen 12 mg/dL (9-16); Carbon Dioxide 28 mmol/L (22-29); Chloride 108 mmol/L (96-108); Cholesterol 172 mg/dL (<200); Estimated Glomerular Filt Rate > 60; Glucose Random 97 mg/dL (60-115); HDL Cholesterol 58 mg/dL (>40); LDL Cholesterol Calculated 98 mg/dL (<100); Potassium 3.8 mmol/L (3.3-5.1); Sodium 144 mmol/L (135-145); Total Protein 7.3 g/dL (6.5-8.0); Triglycerides 81 mg/dL (<150)
== END 2024-02-27 09:14 | disposition home or self-care (01) ==
LOC: HO.LAB 09:13
PROVIDERS: PCP Internal Medicine; Visit Provider Internal Medicine
DX: G47.33 Obstructive sleep apnea (adult) (pediatric) (principal); I10 Essential (primary) hypertension; Z68.41 Body mass index [BMI] 40.0-44.9, adult; M54.16 Radiculopathy, lumbar region; R20.2 Paresthesia of skin; J45.909 Unspecified asthma, uncomplicated; R06.01 Orthopnea; Z91.09 Other allergy status, other than to drugs and biological substances
CPT/HCPCS: 36415; 80053; 80061; 99212

== ENCOUNTER 2024-02-27 09:15 | Outpatient (AMB) | payer OTHER, SELFPAY ==
--- NOTE | 2024-02-27 09:31 | MHC.OFFVIS ---
Vital Signs 02/27/24 09:32 Height 5 ft 5 in Weight 240 lb BMI 39.9 BP 122/62 Blood Pressure Location Rt brachial Position Sitting Pulse 66 Pulse Source Doppler Pulse Oximetry (%) 96 Oxygen Delivery Method Room Air Intake Visit Reasons: Asthma Allergies shrimp Allergy (Intermediate, Verified 02/27/24 09:35) SWELLING cat dander [cats] Allergy (Unknown, Verified 02/27/24 09:35) Unknown pollen extracts Allergy (Unknown, Verified 02/27/24 09:35) Unknown walnut Allergy (Unknown, Verified 02/27/24 09:35) Unknown bee pollen [bee stings] Allergy (Verified 02/27/24 09:35) Wheezing dog dander [dogs] Adverse Reaction (Unknown, Verified 02/27/24 09:35) Unknown HPI HPI Asthma: Details: 53-year-old lady, nonsmoker, with underlying history of ulcerative colitis, now followed for severe persistent asthma.? After the last office visit she was restarted on Trelegy with significant improvement in her symptoms. She also was started on diuretic for orthopnea with significantly improved lower extremity edema and orthopnea. Patient denies recent exacerbations. [facility] Medical History (Updated 01/30/24 @ 09:20 by Neva Cabello PA-C) Sleep apnea Asthma GERD (gastroesophageal reflux disease) Fibromyalgia Ulcerative colitis (~2004) Surgical History (Updated 01/30/24 @ 09:20 by Neva Cabello PA-C) History of colonoscopy History of Social History Household Members: Spouse Housing: Apartment Alcohol intake: never Patient Tobacco Use Status: Never used Tobacco Review of Systems Const Denies daytime sleepiness, Denies excessive sweating, Denies fatigue, Denies fever(s), Denies lethargy, Denies malaise, Denies night sweats, Denies snoring and Denies weight loss Eyes Denies blurry vision and Denies itchy eyes ENT Denies nasal congestion, Denies post nasal drip, Denies sinus pain, Denies sinus pressure and Denies other ( Thrush) Card Denies chest pain, Denies pedal edema, Denies dyspnea, Denies orthopnea and Denies paroxysmal nocturnal dyspnea Resp Denies cough, Denies hemoptysis, Denies excessive phlegm production, Denies dyspnea, Denies snoring and Denies wheezing GI Denies abdominal pain and Denies heartburn Musc Denies myalgias, Denies arthralgias and Denies joint swelling Skin/Breast Denies rash Neuro Denies memory loss and Denies seizure-like activity Psych Denies abnormal sleep pattern, Denies anxiety and Denies memory loss Endo Denies excessive sweating, Denies fatigue and Denies heat intolerance Alexandre/Lymph Denies easy bruising Aller/Immun Denies itchy eyes, Denies seasonal rhinorrhea and Denies wheezing Physical Exam Vital Signs: Last Vital Signs Pulse 66 02/27/24 09:32 BP 122/62 02/27/24 09:32 Pulse Ox 96 02/27/24 09:32 Oxygen Delivery Method Room Air 02/27/24 09:32 BMI result Body Mass Index 39.9 Const General: no acute distress and alert Nutritional Appearance: obese Orientation/consciousness: Other orientation findings ( oriented) HEENT Head: Yes atraumatic Eyes General: appearance normal, both eyes and all related structures Sclerae: sclerae normal EOM: EOMs intact bilaterally Neck Neck: Yes supple Lymphatic: no lymphadenopathy noted Resp Effort & Inspection: normal respiratory effort and no use of accessory muscles Auscultation: clear to auscultation bilaterally Cardio Rate: regular rate Rhythm: regular rhythm Heart sounds: no gallops, no murmurs and no rubs Skin General skin exam: other ( warm) Extrem General: No clubbing, No cyanosis and No edema Assessment & Plan Assessment & Plan (1) Asthma: Code(s): J45.909 - Unspecified asthma, uncomplicated Category: Medical Plan: Well controlled on Trelegy and albuterol MDI. Continue current regimen. (2) Orthopnea: Code(s): R06.01 - Orthopnea Category: Medical Plan: Improved control on current diuretic regimen. Continue Lasix at 40 mg daily. (3) Environmental allergies: Code(s): Z91.09 - Other allergy status, other than to drugs and biological substances Category: Medical Plan: Well controlled on Singulair. Continue current regimen. Coding Level of Care Code Est Pt Level 4 (35453) Diagnoses Asthma J45.909 Orthopnea R06.01 Environmental allergies Z91.09
[2024-02-27 09:32] VITALS: BP 122/62; PULSE 66; O2SAT 96; BMI 39.9
== END 2024-02-27 09:46 | disposition home or self-care (01) ==
PROVIDERS: PCP Internal Medicine; Visit Provider Internal Medicine Pulmonary Disease
DX: J45.909 Unspecified asthma, uncomplicated (principal); R06.01 Orthopnea; Z91.09 Other allergy status, other than to drugs and biological substances
CPT/HCPCS: 99214

== ENCOUNTER 2024-02-27 10:00 | Outpatient (AMB) | payer OTHER, SELFPAY ==
[2024-02-27 10:11] VITALS: BP 158/76; PULSE 62; O2SAT 98; BMI 39.9
--- NOTE | 2024-02-27 10:11 | MHC.OFFVIS ---
Vital Signs 02/27/24 10:11 Height 5 ft 5 in Weight 240 lb BMI 39.9 BP 158/76 H Blood Pressure Location Lt brachial Position Sitting Pulse 62 Pulse Source Pulse Oximeter Pulse Oximetry (%) 98 Oxygen Delivery Method Room Air Intake Visit Reasons: F/U Allergies shrimp Allergy (Intermediate, Verified 02/27/24 10:12) SWELLING cat dander [cats] Allergy (Unknown, Verified 02/27/24 10:12) Unknown pollen extracts Allergy (Unknown, Verified 02/27/24 10:12) Unknown walnut Allergy (Unknown, Verified 02/27/24 10:12) Unknown bee pollen [bee stings] Allergy (Verified 02/27/24 10:12) Wheezing dog dander [dogs] Adverse Reaction (Unknown, Verified 02/27/24 10:12) Unknown Medication List - Last Reconciled 02/27/24 by Kylah Godinez albuterol sulfate 90 mcg/actuation (Ventolin HFA) inhalation albuterol sulfate mg inhalation amlodipine 2.5 mg PO DAILY [cock up splint As directed. Wear at night ] diclofenac sodium 75 mg PO ONCE epinephrine (EpiPen) 0.3 mg (0.3 mL) IM Q4H PRN vlsahrgdnsc-ajvqhcwrl-nfsjwvtr 200-62.5-25 mcg (Trelegy Ellipta) 1 inh inhalation DAILY 30 days furosemide 40 mg PO DAILY 30 days losartan-hydrochlorothiazide 100-25 mg 1 tab PO DAILY melatonin 10 mg PO BEDTIME PRN methocarbamol 500 mg PO TID PRN montelukast 10 mg PO DAILY naproxen 500 mg PO BID PRN 7 days HPI Comments Details: Patient presents back to the office today for follow-up, accompanied by Oliverio who she requests to assist with [place]er interpretation. asl interpreter was offered, patient declined. Records from [facility] were reviewed, MRI results as per below. These were discussed with patient today She continues with left lower back pain with radiation down the left leg to the foot. Endorses left foot burning, tingling. Denies any new injury, fall, trauma Taking muscle relaxers with minimal improvement No improvement with Tylenol or nonsteroidal anti-inflammatory medications Prior: Blanca is a very pleasant 53-year-old female who presents to the office today, accompanied by pipe tester Oliverio, for evaluation and management of her chronic lower back pain. japanese interpreter services were offered, patient declined and requested to have her friend assist. Patient complaining of bilateral lower back pain with radiation down the left leg to the foot that started over 1 year ago Attributes the pain to a fall from bed. At the time of injury she was seen in the emergency room, transferred to [facility] where she underwent an MRI to rule out cauda equina. MRI results are unavailable for review. They have been requested. She states they did an MRI and then discharge home with no other interventions. She has not followed up with any Spine Services since the injury. Pain today is rated as a 10/10, constant and worse at night Midline lower back pain with intermittent burning, tingling, electrical pain down the left leg Pain is exacerbated by movements and weather changes. Taking NSAIDs, Tylenol without improvement of her symptoms Completed physical therapy < 1 year ago without improvement of her symptoms Denies history of chiropractor, acupuncture or injections. Has tried massage with no improvement. Denies red flag symptoms including new loss of bowel, bladder or saddle anesthesia In terms of muscle damage condition is described as pulsing, throbbing, pinching, cramping, dull, sore, aching, radiating, stabbing, hot, tingling, tiring, sharp Pain is negatively impacting patient's enjoyment of life, general activity, ability care of herself, ability to perform activities of daily living, sleep, normal function Denies current use of anticoagulants Denies implantable devices, pacemaker or defibrillator Denies current use of tobacco, nicotine, alcohol or illicit substances [facility] Medical History (Updated 02/27/24 @ 10:23 by Scarlet Borja APRN, OPTICS TEST TECHNICIAN) Sleep apnea Asthma GERD (gastroesophageal reflux disease) Fibromyalgia Ulcerative colitis (~2004) Surgical History (Updated 01/30/24 @ 09:20 by Neva Cabello PA-C) History of colonoscopy History of Social History Household Members: Spouse Housing: Apartment Alcohol intake: never Patient Tobacco Use Status: Never used Tobacco Review of Systems Const All systems reviewed & are unremarkable except as noted in HPI and below Physical Exam Vital Signs: Last Vital Signs Pulse 62 02/27/24 10:11 BP 158/76 H 02/27/24 10:11 Pulse Ox 98 02/27/24 10:11 Oxygen Delivery Method Room Air 02/27/24 10:11 BMI result Body Mass Index 39.9 General: awake, alert, oriented. Answers questions appropriately. Fully engaged in examination. Skin: warm, dry, intact HEENT: Normocephalic. Hearing intact. Cardiac: External chest normal in appearance. Respiratory: No cough, audible wheezing or stridor. Abdomen: without gross distension. MS: No obvious swelling or deformities. Able to transition from sit to stand unassisted. Ambulates with bilaterally normal heel strike and toe off Bilateral lower extremity strength 5/5 SLR positive on the left Nontender over bilateral PSIS Tenderness over midline lumbar vertebrae and lumbar paraspinal muscles Negative footdrop, negative clonus Neurological: Oriented to person, place, time and situation. Thought process intact. No gait abnormalities appreciated. Psychiatric: Appropriate mood and affect. Good judgment and insight. Results Reviewed Results Reviewed: 07/2022 MRI LS Assessment & Plan Assessment & Plan (1) Lumbar radiculopathy: Code(s): M54.16 - Radiculopathy, lumbar region Category: Medical (2) Left leg paresthesias: Code(s): R20.2 - Paresthesia of skin Category: Medical Plan Adanix presented back to the office today for follow-up MRI results from [facility] reviewed with patient today, results as per above New prescription for gabapentin 100 mg p.o. 3 times daily as needed. Patient advised on cautions for use Continue with diclofenac as prescribed by PCP Order placed for EMG All questions and concerns were answered, patient agrees with the plan. Follow up after EMG,, sooner if needed Orders: Orders NE electromyogram (EMG) Today M54.16 - Radiculopathy, lumbar region, R20.2 - Paresthesia of skin Medications: New gabapentin 100 mg PO TID 90 caps 1RF Coding Level of Care Code Est Pt Level 3 (59342) Complex EM visit Add On G2211 Diagnoses Lumbar radiculopathy M54.16 Left leg paresthesias R20.2
== END 2024-02-27 10:24 | disposition home or self-care (01) ==
PROVIDERS: PCP Internal Medicine; Visit Provider Registered Nurse Emergency
DX: M54.16 Radiculopathy, lumbar region (principal); R20.2 Paresthesia of skin
CPT/HCPCS: 99213; G2211

== ENCOUNTER 2024-04-01 14:37 | Outpatient (REF) | payer OTHER, SELFPAY ==
--- NOTE | 2024-04-01 14:40 | EMG_ITS ---
Chief complaint: Back pain, left leg pain Reason for referral: Evaluate for radiculopathy Referred by: Scarlet Borja NP Procedure done: Left lower extremity NCS/EMG Precautions and/or limitations: None The limb temperature was monitored continuously and remained between 32-36 degrees C during the performance of the NCS. Nerve Conduction Studies Anti Sensory Summary Table ?Stim Site NR Onset (ms) Norm Onset (ms) Peak (ms) Norm Peak (ms) O-P Amp (?V) Norm O-P Amp Site1 Site2 Delta-0 (ms) Dist (cm) Nilesh (m/s) Norm Nilesh (m/s) Left Sural Anti Sensory (Lat Mall) Calf ? 2.3 3.3 <4.0 5.3 >5.0 Calf Lat Mall 2.3 14.0 61 Motor Summary Table ?Stim Site NR Onset (ms) Norm Onset (ms) O-P Amp (mV) Norm O-P Amp iAmp (mV) Amp (1st) (%) Site1 Site2 Delta-0 (ms) Dist (cm) Nilesh (m/s) Norm Nilesh (m/s) Left Peroneal Motor (Ext Dig Brev) Ankle ? 3.8 <4.0 4.1 >2.5 5.1 100.0 Ankle Ext Dig Brev 3.8 0.0 B Fib ? 10.6 3.4 4.0 82.9 B Fib Ankle 6.8 31.5 46 >40 Poplt ? 11.3 3.8 4.5 92.7 Poplt B Fib 0.7 5.0 71 >40 Left Tibial Motor (Abd Diego Brev) Ankle ? 3.1 <5 7.8 >2.5 10.8 100.0 Ankle Abd Diego Brev 3.1 0.0 Knee ? 11.2 3.9 5.0 50.0 Knee Ankle 8.1 42.0 52 >40 EMG ?Side Muscle Nerve Root Ins Act Fibs Psw Amp Dur Poly Recrt Int Pat Comment Left AbdHallucis MedPlantar S1-2 Nml Nml Nml Nml Nml 0 Nml Complete Left AntTibialis Dp Br Peron L4-5 Nml Nml Nml Nml Nml 0 Nml Complete Left PostTibialis Tibial L5, S1 Nml Nml Nml Nml Nml 0 Nml Complete Left MedGastroc Tibial S1-2 Nml Nml Nml Nml Nml 0 Nml Complete Left VastusMed Femoral L2-4 Nml Nml Nml Nml Nml 0 Nml Complete Paraspinal EMG ?Side Muscle Nerve Root Ins Act Fibs Psw Comment Left Lumbar Upper Rami Nml Nml Nml Left Lumbar Mid Rami Nml Nml Nml Left Lumbar Lower Rami Nml Nml Nml FINDINGS: All motor and sensory nerves tested showed normal latencies, amplitudes and conduction velocities. Concentric needle EMG was performed in selected muscles of the left lower extremity and lumbar paraspinals. Study did not reveal signs of electric abnormalities as shown in the table above. IMPRESSION: 1. This is a normal study. 2. There is no electrodiagnostic evidence for peroneal neuropathy, tibial neuropathy, lumbosacral plexopathy, lumbar radiculopathy, or peripheral neuropathy. Thank you for your kind referral. Isabella Rosales MD, ERIC Board Certified, [place] Board of Physical Medicine and Rehabilitation (ABPMR) Board Certified, [place] Board of Electrodiagnostic Medicine (ABEM) [place] [id number] [facility]
== END 2024-04-01 14:38 | disposition home or self-care (01) ==
LOC: HO.NEURO 14:37
PROVIDERS: PCP Internal Medicine; Visit Provider Registered Nurse Emergency
DX: M54.16 Radiculopathy, lumbar region (principal); R20.2 Paresthesia of skin
CPT/HCPCS: 95886; 95908

== ENCOUNTER → 2024-04-01 14:40 | Outpatient (BNV) | payer OTHER, SELFPAY | PROVIDERS: PCP Internal Medicine; Visit Provider Physical Medicine & Rehabilitation | DX: M79.605 Pain in left leg (principal); M54.16 Radiculopathy, lumbar region | CPT/HCPCS: 95886; 95908 ==

== ENCOUNTER 2024-04-08 10:07 | Outpatient (AMB) | payer OTHER, SELFPAY ==
--- NOTE | 2024-04-08 10:09 | A.OFFVIS_ITS ---
Vital Signs 3 04/08/24 10:13 Height 5 ft 5 in Weight 234 lb BMI 38.9 BP 147/86 H Blood Pressure Location Lt brachial Position Sitting Pulse 73 Pulse Source Pulse Oximeter Pulse Oximetry (%) 98 Oxygen Delivery Method Room Air Intake Visit Reasons: Follow up EMG results Intake Note: Pain today 01/28 Hydroelectric Mechanic Required: Yes Hydroelectric Mechanic Language: Slovak Accompanied by: Spouse Allergies shrimp Allergy (Intermediate, Verified 04/08/24 10:13) SWELLING cat dander [cats] Allergy (Unknown, Verified 04/08/24 10:13) Unknown pollen extracts Allergy (Unknown, Verified 04/08/24 10:13) Unknown walnut Allergy (Unknown, Verified 04/08/24 10:13) Unknown bee pollen [bee stings] Allergy (Verified 04/08/24 10:13) Wheezing dog dander [dogs] Adverse Reaction (Unknown, Verified 04/08/24 10:13) Unknown HPI Comments Details: Patient presents back to the office today for follow-up, review of recent EMG EMG reviewed, results as per below Patient continues with midline lower back pain. Denies new injury, fall, trauma. Has been taking gabapentin with minimal improvement Taking methocarbamol, Tylenol and ibuprofen with minimal improvement. Pain is worse with moving, bending, twisting Denies red flag symptoms including new loss of bowel, bladder or saddle anesthesia Prior: Patient presents back to the office today for follow-up, accompanied by Oliverio who she requests to assist with Slovak interpretation. american sign language interpreter was offered, patient declined. Records from [facility] were reviewed, MRI results as per below. These were discussed with patient today She continues with left lower back pain with radiation down the left leg to the foot. Endorses left foot burning, tingling. Denies any new injury, fall, trauma Taking muscle relaxers with minimal improvement No improvement with Tylenol or nonsteroidal anti-inflammatory medications Prior: Blanca is a very pleasant 53-year-old female who presents to the office today, accompanied by bright cutter Oliverio, for evaluation and management of her chronic lower back pain. translator interpreter services were offered, patient declined and requested to have her friend assist. Patient complaining of bilateral lower back pain with radiation down the left leg to the foot that started over 1 year ago Attributes the pain to a fall from bed. At the time of injury she was seen in the emergency room, transferred to [facility] where she underwent an MRI to rule out cauda equina. MRI results are unavailable for review. They have been requested. She states they did an MRI and then discharge home with no other interventions. She has not followed up with any Spine Services since the injury. Pain today is rated as a 10/10, constant and worse at night Midline lower back pain with intermittent burning, tingling, electrical pain down the left leg Pain is exacerbated by movements and weather changes. Taking NSAIDs, Tylenol without improvement of her symptoms Completed physical therapy < 1 year ago without improvement of her symptoms Denies history of chiropractor, acupuncture or injections. Has tried massage with no improvement. Denies red flag symptoms including new loss of bowel, bladder or saddle anesthesia In terms of muscle damage condition is described as pulsing, throbbing, pinching, cramping, dull, sore, aching, radiating, stabbing, hot, tingling, tiring, sharp Pain is negatively impacting patient's enjoyment of life, general activity, ability care of herself, ability to perform activities of daily living, sleep, normal function Denies current use of anticoagulants Denies implantable devices, pacemaker or defibrillator Denies current use of tobacco, nicotine, alcohol or illicit substances [facility] Medical History (Updated 02/27/24 @ 10:23 by Scarlet Borja APRN, WET ROOM WORKER) Sleep apnea Asthma GERD (gastroesophageal reflux disease) Fibromyalgia Ulcerative colitis (~2004) Surgical History (Updated 01/30/24 @ 09:20 by Neva Cabello PA-C) History of colonoscopy History of Social History Household Members: Spouse Housing: Apartment Alcohol intake: never Patient Tobacco Use Status: Never used Tobacco Review of Systems Const All systems reviewed & are unremarkable except as noted in HPI and below Physical Exam Vital Signs: Last Vital Signs Pulse 73 04/08/24 10:13 BP 147/86 H 04/08/24 10:13 Pulse Ox 98 04/08/24 10:13 Oxygen Delivery Method Room Air 04/08/24 10:13 BMI result Body Mass Index 38.9 General: awake, alert, oriented. Answers questions appropriately. Fully engaged in examination. Skin: warm, dry, intact HEENT: Normocephalic. Hearing intact. Cardiac: External chest normal in appearance. Respiratory: No cough, audible wheezing or stridor. Abdomen: without gross distension. MS: No obvious swelling or deformities. Able to transition from sit to stand unassisted. Bilateral lower extremity strength 5/5 Nontender over bilateral PSIS Tenderness over midline lumbar vertebrae and lumbar paraspinal muscles Facet loading positive Neurological: Oriented to person, place, time and situation. Thought process intact. No gait abnormalities appreciated. Psychiatric: Appropriate mood and affect. Good judgment and insight. Results Reviewed Results Reviewed: 03/2024 EMG IMPRESSION: 1. This is a normal study. 2. There is no electrodiagnostic evidence for peroneal neuropathy, tibial neuropathy, lumbosacral plexopathy, lumbar radiculopathy, or peripheral neuropathy. 07/2022 MRI LS Assessment & Plan Assessment & Plan (1) Lumbar radiculopathy: Code(s): M54.16 - Radiculopathy, lumbar region Category: Medical (2) Left leg paresthesias: Code(s): R20.2 - Paresthesia of skin Category: Medical Plan Blanca presented back to the office today for follow-up, review recent EMG. EMG reviewed, results as per above Continue with NSAIDs and methocarbamol as prescribed Will increase gabapentin dose to 300 mg t.i.d.. Patient advised on cautions for use Patient has exhausted conservative therapy including PT, home exercise program, NSAIDs, [id number] medications, prescription medications without improvement of her symptoms Discussed options for treatment including diagnostic interventional testing, epidural steroid injections, peripheral nerve stimulation with Sprint, RFA and more permanent neuromodulation. Will schedule for fluoroscopy guided diagnostic L3-L4 DR L5 medial branch blocks with local anesthetic All questions and concerns were answered, patient agrees with the plan. Follow up after injections, sooner if needed Medications: Changed 2 From gabapentin 100 mg PO TID 90 caps 1RF To gabapentin 300 mg PO TID 90 caps 1RF Coding Level of Care Code Est Pt Level 3 (68805) Complex EM visit Add On G2211 Diagnoses Lumbar radiculopathy M54.16 Left leg paresthesias R20.2
[2024-04-08 10:13] VITALS: BP 147/86; PULSE 73; O2SAT 98; BMI 38.9
== END 2024-04-08 11:05 | disposition home or self-care (01) ==
PROVIDERS: PCP Internal Medicine; Visit Provider Registered Nurse Emergency
DX: M54.16 Radiculopathy, lumbar region (principal); R20.2 Paresthesia of skin
CPT/HCPCS: 99213; G2211

== ENCOUNTER → 2024-04-08 10:07 | Outpatient (BNVA) | payer OTHER, SELFPAY | PROVIDERS: PCP Internal Medicine; Visit Provider Registered Nurse Emergency | DX: M54.16 Radiculopathy, lumbar region (principal); R20.2 Paresthesia of skin | CPT/HCPCS: 99212 ==

== ENCOUNTER 2024-06-15 11:34 | Emergency (ER) | payer OTHER, SELFPAY ==
--- NOTE | ~2024-06-15 | CT_ITS ---
EXAMINATION: CT ABDOMEN AND PELVIS WITHOUT CONTRAST CLINICAL INFORMATION: Right flank pain x2 weeks. COMPARISON: Priors none available/archived. TECHNIQUE: Multidetector volumetric imaging was performed from the superior aspect of the liver through the pubic symphysis. Sagittal and coronal reformatted images were obtained on the technologist's workstation. This CT examination was performed using dose optimization techniques as appropriate, variously including the following: *Automated exposure control *Adjustment of mA and/or kV according to patient size (this includes techniques or standardized protocols for targeted exams where dose is matched to indication/reason for exam; i.e. extremities or head) *Use of iterative reconstruction technique FINDINGS: LUNG BASES: Lung bases demonstrate minimal scarring in the medial right upper lobe. Lung bases otherwise clear. No effusions. Heart size normal. No pericardial effusion. Tiny type I hiatus hernia likely present. LIVER, GALLBLADDER, AND BILIARY TREE: There is mild diffuse fatty infiltration of the liver. There is no focal suspicious hepatic lesion. There are foci of fatty sparing. No intra or extrahepatic biliary dilatation. The gallbladder is unremarkable with no evidence of radiopaque gallstones, gallbladder wall thickening, or obvious pericholecystic inflammatory changes. PANCREAS: Unremarkable. SPLEEN: Unremarkable. ADRENAL GLANDS: Unremarkable. KIDNEYS AND URETERS: The kidneys are normal in size, shape, and attenuation. No hydronephrosis, hydroureter, or calculi seen. No perinephric stranding. BLADDER: Unremarkable. GASTROINTESTINAL TRACT: Stomach is somewhat decompressed. The duodenum and small bowel are normal in caliber and course. No inflammation or wall thickening. Normal appendix visualized. The colon is normal in course, caliber, and appearance without evidence of wall thickening or inflammation. No rectal abnormality. ABDOMINAL WALL: Tiny fat-containing umbilical hernia. Abdominal pannus. LYMPH NODES: None enlarged by size criteria. VASCULAR: Unremarkable. PELVIC VISCERA: The uterus and adnexa are unremarkable. OSSEOUS STRUCTURES: No suspicious lytic or blastic bone lesions. There are mild to moderate spinal degenerative changes. CT/CT abdomen pelvis wo IV con IMPRESSION: 1. No acute findings in the abdomen or pelvis. There is no evidence of obstructive uropathy or urological calculus. 2. There is diffuse mild fatty infiltration of the liver. 3. There is a tiny type I hiatus hernia. Electronically signed by: Daniel Grimaldo MD 06/15/2024 01:11 PM CORNEL PERKINS
[2024-06-15 12:08] VITALS: BP 148/84; PULSE 65; RESP 18; TEMP 36.5; O2SAT 98; BMI 37.1
--- NOTE | 2024-06-15 12:10 | ED_ITS ---
HPI - General Adult General Chief complaint: Back Pain/Injury Stated complaint: Severe R side abd pain Time Seen by Provider: 06/15/24 16:44 Source: patient Mode of arrival: ambulatory History of Present Illness ED Provider: Vaughn HERNÁNDEZ narrative: 53yo female with pmhx of lumbar radiculopathy and chronic back pain presenting for back pain - patient states that she has been experiencing worsening atraumatic right lower back pain for the past 2 weeks. The pain radiates down the back of her right leg. Patient states that although this does feel similar to her prior episodes of back this episode feels slightly worse. She also endorses nausea however she denies vomiting, dysuria, hematuria, chest pain, shortness of breath, abdominal pain. Related Data Home Medications ?Medication ?Instructions ?Recorded ?Confirmed montelukast 10 mg tablet 10 mg PO DAILY 07/25/20 02/27/24 albuterol sulfate 2.5 mg/3 mL mg inhalation 01/23/24 02/27/24 (0.083 %) solution for nebulization albuterol sulfate 90 mcg/actuation inhalation 01/23/24 02/27/24 aerosol inhaler (Ventolin HFA) amlodipine 2.5 mg tablet 2.5 mg PO DAILY 01/23/24 02/27/24 diclofenac sodium 75 mg 75 mg PO ONCE 01/23/24 02/27/24 tablet,delayed release losartan 100 1 tab PO DAILY 01/23/24 02/27/24 mg-hydrochlorothiazide 25 mg tablet melatonin 10 mg capsule 10 mg PO BEDTIME PRN 01/23/24 02/27/24 Previous Rx's ?Medication ?Instructions ?Recorded cock up splint #2 ea 07/27/21 epinephrine 0.3 mg/0.3 mL 0.3 mg (0.3 mL) IM Q4H PRN 12/16/21 injection, auto-injector (EpiPen) anaphylaxis #2 ea naproxen 500 mg tablet 500 mg PO BID PRN pain 7 days #14 01/25/24 tabs fluticasone fur. 200 mcg-umeclid 1 inh inhalation DAILY 30 days #1 01/30/24 62.5 mcg-vilant 25 mcg ea inhalat.powder (Trelegy Ellipta) furosemide 40 mg tablet 40 mg PO DAILY 30 days #30 tabs 01/30/24 gabapentin 300 mg capsule 300 mg PO TID #90 caps 04/08/24 methocarbamol 500 mg tablet 500 mg PO TID PRN muscle spasm #90 06/01/24 tabs lidocaine 4 % topical patch 1 patch topical DAILY PRN back 06/15/24 pain #30 ea Allergies Allergy/AdvReac Type Severity Reaction Status Date / Time shrimp Allergy Intermediate SWELLING Verified 06/15/24 12:10 cat dander [cats] Allergy Unknown Unknown Verified 06/15/24 12:10 pollen extracts Allergy Unknown Unknown Verified 06/15/24 12:10 walnut Allergy Unknown Unknown Verified 06/15/24 12:10 bee pollen [bee stings] Allergy Wheezing Verified 06/15/24 12:10 dog dander [dogs] AdvReac Unknown Unknown Verified 06/15/24 12:10 Review of Systems 2 Review of Systems: Patient endorses right lower back pain and nausea Yes all other systems are reviewed and are negative [facility] Past Medical History Attestation statement: The following information was validated with the patient. [facility] Narrative: Back pain Source: old records reviewed Medical History Sleep apnea Asthma GERD (gastroesophageal reflux disease) Fibromyalgia Ulcerative colitis (~2004) Surgical History History of colonoscopy History of Social History Social History Household Members: Spouse Housing: Apartment Alcohol intake: never Patient Tobacco Use Status: Never used Tobacco Advance Directives: No Advance Directives Information Provided: No Do you have a plan to hurt others: No Plan Physical Exam ED Vital Signs: Vital Signs - 24 hr 06/15/24 12:08 06/15/24 19:09 Temperature 97.7 F 98.1 F Pulse Rate 65 62 Respiratory Rate 18 19 Blood Pressure 148/84 H 134/78 Pulse Oximetry 98 98 Oxygen Delivery Method Room Air Room Air BMI result Body Mass Index 37.1 Well-appearing female in no acute distress Alert and oriented x4; no focal neurologic deficits appreciated Unlabored breathing Normal S1-S2 regular rate and rhythm regular Abdomen is soft, nontender nondistended Right paraspinal lumbar tenderness to palpation; positive right-sided straight leg test Bilateral lower extremities neurovascularly intact with strong equal DP pulses Course Course Course Narrative: This is a rapid medical exam performed by Anastasia Grover NP: Additional HPI, ROS, PE not included below will be deferred to primary provider. Patient is a 53-year-old female presenting with complaint of worsening right flank pain for the past 2 weeks. Plan: labs, UA, CT Medications Administered Discontinued Medications Generic Name Dose Route Start Last Admin Trade Name Robq PRN Reason Stop Dose Admin Diazepam 2 mg 06/15/24 17:04 06/15/24 17:20 Diazepam 2 Mg Tablet PO 06/15/24 17:05 2 mg ONCE ONE Administration Sodium Chloride 1,000 mls @ 999 mls/hr 06/15/24 19:45 06/15/24 20:01 Ns IV 06/15/24 20:45 999 mls/hr .Q1H1M KARYN Administration Ketorolac Tromethamine 15 mg 06/15/24 17:04 06/15/24 17:19 Ketorolac Tromethamine 15 Mg/Ml Vial IVPUSH 06/15/24 17:05 15 mg ONCE ONE Administration Lidocaine 1 patch 06/15/24 17:04 06/15/24 17:21 Lidocaine 4 % Patch Adh..Patch TRANSDERMA 06/15/24 17:05 1 patch ONCE ONE Administration Protocol Medical Decision Making Medical Decision Making MDM Narrative: 53-year-old female presenting for back pain. I am concerned for the following; radiculopathy/nerve impingement, sciatica, muscular strain/sprain - I am also considering UTI and nephrolithiasis - I have no concerns for acute cord given lak of red flag symptoms and hx of back pain - labs and imaging studies ordered - analgesics ordered Labs and imaging interpretation: - I reviewed patient's CT scan did not appreciate any significant abnormalities; the radiology impression reads no acute findings in abdomen or pelvis - labs notable for normal wbc, stable h&H, electrolytes wnl, normal cr, baseline lfts, negative hcg - UA without hematurial; no concern for UTI and low suspicion for stone On reassessment patient reports improvement in symptoms. I suspect that her pain is secondary to her known radiculopathy. I discussed her workup with her and home care instructions. She is comfortable with being discharged. I gave her follow up instructions and return precautions Lab Data 06/15/24 12:06/15/24 12:25 Labs: Lab Results 06/15/24 06/15/24 Range/Units 12:25 20:27 WBC 8.7 (4.8-10.8) X10*3/uL RBC 5.08 (4.20-5.50) X10*6/uL Hgb 13.7 (12.0-16.0) g/dl Hct 43.6 (37.0-47.0) % MCV 85.8 (80.0-98.0) fL MCH 27.0 (27.0-33.0) pg MCHC 31.4 (31.0-35.0) g/dl RDW 13.6 (11.0-16.0) % Plt Count 223 (160-400) X10*3/uL MPV 10.7 (9.4-12.3) fL Immature Gran % (Auto) 0.1 (0.0-0.4) % Neut % (Auto) 64.1 (45-73) % Lymph % (Auto) 29.0 (20-40) % [place] % (Auto) 5.2 (2-11) % Eos % (Auto) 1.1 (0-4) % Baso % (Auto) 0.5 (0-2) % Lymph # (Auto) 2.5 (1.2-4.9) X10*3/uL [place] # (Auto) 0.5 (0.1-1.2) X10*3/uL Eos # (Auto) 0.1 (0.0-0.4) X10*3/uL Baso # (Auto) 0.0 (0.0-0.2) X10*3/uL Abs Immat Gran (auto) 0.01 (0.00-0.03) X10*3/uL Absolute Neuts (auto) 5.6 (2.0-8.3) x10*3/uL Absolute Nucleated RBC 0.000 (0.0-0.012) X10*3/uL Nucleated RBC % (auto) 0.0 (0.0-0.2) /100WBC Sodium 140 (135-145) mmol/L Potassium 4.1 (3.3-5.1) mmol/L Chloride 107 (96-108) mmol/L Carbon Dioxide 27 (22-29) mmol/L Anion Gap 10 L (12-20) BUN 8 L (9-16) mg/dL Creatinine 0.64 (0.5-1.4) mg/dL Estim Creat Clear Calc 121.1 Estimated GFR > 60 Random Glucose 102 (60-115) mg/dL Calcium 9.2 (8.4-10.2) mg/dL Total Bilirubin 0.5 (0.0-1.0) mg/dL Direct Bilirubin 0.2 (0.0-0.5) mg/dL AST 36 H (5-31) U/L ALT 41 H (0-31) U/L Alkaline Phosphatase 139 H (39-117) U/L Total Protein 7.7 (6.5-8.0) g/dL Albumin 3.9 (3.5-5.0) g/dL Lipase 18 (8-78) U/L Beta HCG, Quant < 2 mIU/mL Urine Color Dark Yellow Urine Appearance Cloudy Urine pH 7.0 (5.0-9.0) Ur Specific [place] 1.025 (1.005-1.025) Urine Protein 30 (1+) H (Neg-Trace) mg/dL Urine Glucose (UA) Negative (Negative) mg/dL Urine Ketones 40 (Negative) mg/dL Urine Blood Negative (Negative) Urine Nitrite Negative (Negative) Ur Leukocyte Esterase Negative (Negative) Urine RBC 0-2 (0-2) /HPF Urine WBC 0-5 (0-5) /HPF Ur Squamous Epith Cells 11-20 (0-2) /HPF Urine Bacteria 4+ (None Seen) Hyaline Casts 0-2 (0-2) /LPF Discharge Plan Discharge Clinical Impression: Back pain Qualifiers: Back pain location: low back pain Chronicity: acute Back pain laterality: right Sciatica presence: with sciatica Sciatica laterality: sciatica of right side Q ualified Code(s): M54.41 - Lumbago with sciatica, right side Patient Disposition: Home, Self-Care Additional Instructions: You can take Tylenol and ibuprofen for your back pain. I sent a prescription for lidocaine patches to your pharmacy. Please follow up with your primary care provider next 24-48 hours for reassessment. If you develop any new or worsening symptoms please return to the emergency department Prescriptions: New lidocaine 4 % adhesive patch,medicated 1 patch topical DAILY PRN (Reason: back pain) Qty: 30 0RF No Action methocarbamol 500 mg tablet 500 mg PO TID PRN (Reason: muscle spasm) Qty: 90 1RF Rx Instructions: No driving while taking this medication. Do no take with alcohol or other F[employer]BOX REPAIRER Depressants epinephrine [EpiPen] 0.3 mg/0.3 mL auto-injector 0.3 mg IM Q4H PRN (Reason: anaphylaxis) Qty: 2 0RF naproxen 500 mg tablet 500 mg PO BID PRN (Reason: pain) 7 Days Qty: 14 0RF montelukast 10 mg tablet 10 mg PO DAILY (DME) cock up splint See Rx Instructions .Route .MEDSUPPLY Qty: 2 0RF Rx Instructions: As directed. Wear at night furosemide 40 mg tablet 40 mg PO DAILY 30 Days Qty: 30 6RF Trelegy Ellipta 200-62.5-25 mcg blister with device 1 inh inhalation DAILY 30 Days Qty: 1 6RF losartan-hydrochlorothiazide 100-25 mg tablet 1 tab PO DAILY albuterol sulfate [Ventolin HFA] 90 mcg/actuation HFA aerosol inhaler inhalation amlodipine 2.5 mg tablet 2.5 mg PO DAILY albuterol sulfate 2.5 mg /3 mL (0.083 %) solution for nebulization inhalation diclofenac sodium 75 mg tablet,delayed release (DR/EC) 75 mg PO ONCE melatonin 10 mg capsule 10 mg PO BEDTIME PRN gabapentin 300 mg capsule 300 mg PO TID Qty: 90 1RF Print Language: Angolan
[2024-06-15 12:40] LABS: MANUAL DIFF FLAG NO
[2024-06-15 12:41] LABS: Basophils Percent Auto 0.5 % (0-2); Eosinophils Absolute Auto 0.1 X10*3/uL (0.0-0.4); Eosinophils Percent Auto 1.1 % (0-4); Hematocrit 43.6 % (37.0-47.0); Hemoglobin 13.7 g/dl (12.0-16.0); Imm Gran Abs Auto 0.01 X10*3/uL (0.00-0.03); Imm Gran Pct Auto 0.1 % (0.0-0.4); Lymphocytes Absolute Auto 2.5 X10*3/uL (1.2-4.9); Mean Corpuscular HGB Conc 31.4 g/dl (31.0-35.0); Mean Corpuscular Volume 85.8 fL (80.0-98.0); Mean Platelet Volume 10.7 fL (9.4-12.3); Monocytes Absolute Auto 0.5 X10*3/uL (0.1-1.2); Monocytes Percent Auto 5.2 % (2-11); Neutrophils Absolute Auto 5.6 x10*3/uL (2.0-8.3); Neutrophils Percent Auto 64.1 % (45-73); Platelet Count 223 X10*3/uL (160-400); Red Blood Count 5.08 X10*6/uL (4.20-5.50); Red Cell Distribution Width 13.6 % (11.0-16.0); White Blood Count 8.7 X10*3/uL (4.8-10.8)
[2024-06-15 13:15] LABS: Alanine Aminotransferase 41 U/L (0-31); Albumin Level 3.9 g/dL (3.5-5.0); Alkaline Phosphatase 139 U/L (39-117); Anion Gap 10 (12-20); Aspartate Amino Transferase 36 U/L (5-31); Bilirubin Total 0.5 mg/dL (0.0-1.0); Blood Urea Nitrogen 8 mg/dL (9-16); Calcium 9.2 mg/dL (8.4-10.2); Carbon Dioxide 27 mmol/L (22-29); Chloride 107 mmol/L (96-108); Creatinine Clr Calc Pharmacy 121.1; Estimated Glomerular Filt Rate > 60; Glucose Random 102 mg/dL (60-115); HCG Quantitative < 2 mIU/mL; Potassium 4.1 mmol/L (3.3-5.1); Sodium 140 mmol/L (135-145); Total Protein 7.7 g/dL (6.5-8.0)
[2024-06-15 17:07] LABS: Bilirubin Direct 0.2 mg/dL (0.0-0.5); Lipase 18 U/L (8-78)
[2024-06-15] MEDS: Ketorolac Tromethamine 15 MG/ML VIAL IVPUSH (17:19)
[2024-06-15] MEDS: diazePAM 2 MG TABLET PO (17:20)
[2024-06-15] MEDS: Lidocaine 4 % Patch ADH..PATCH 1 PATCH TRANSDERMA (17:21)
[2024-06-15 19:09] VITALS: BP 134/78; PULSE 62; RESP 19; TEMP 36.7; O2SAT 98
--- OUTSIDE RECORDS SUMMARY | 2024-06-15 19:46 | XMS_ITS | Clinical Summary ---
Author Organization [facility] Address [address] [place] [address] Care Team Providers Care Rim Turning Finisher Name Role Phone System, Provider Not In Primary Care Provider Un available Allergies No known active allergies Medications Medication Sig Dispensed Refills Start Date End Date Status meloxicam (MOBIC) 15 MG tablet Take 1 tablet (15 mg total) by mouth daily. 30 tablet 07/26/2022 Active tiZANidine (ZANAFLEX) 4 MG tablet Take 1 tablet (4 mg total) by mouth 3 (three) times a day. 30 tablet 07/26/2022 Active Social History Tobacco Use Types Packs/Day Years Used Date Smoking Tobacco: Never Assessed Sex and Gender Information Value Date Recorded Sex Assigned at Female 02/05/2023 3:02 AM EDT Gender Identity Female 02/05/2023 3:02 AM EDT Sexual Orientation Heterosexual (straight) 02/05 3:02 AM EDT Last Filed Vital Signs Vital Sign Reading Time Taken Comments Blood Pressure 123/69 07/26/2022 12:58 PM EDT Pulse 70 07/26/2022 12:58 PM EDT Temperature 36.7 ??C (98 ??F) 07/26/2022 12:58 PM EDT Respiratory Rate 16 07/26/2022 12:58 PM EDT Oxygen Saturation 96% 07/26/2022 12:58 PM EDT Inhaled Oxygen Concentration - - Weight 99.8 kg (220 lb) 07/26/2022 3:06 AM EDT Height 165.1 cm (5' 5 ) 07/26/2022 3:06 AM EDT Body Mass Index 36.61 07/26/2022 3:06 AM EDT Plan of Treatment Health Maintenance Due Date Last Done Comments Hepatitis C Virus Screening 1971 HIV Screening 12/03/1984 DTaP/Tdap/Td Vaccines (1 - Tdap) 12/03/1990 Hepatitis B Vaccines (1 of 3 - 19+ 3-dose series) 12/03/1990 Pap Smear (Ages 21-65) 12/03/1992 Mammogram 2011 Colonoscopy 12/03/2016 Pneumococcal Vaccines 50+ (1 of 1 - PCV) 12/03/2021 Zoster (Shingles) Vaccine (1 of 2) 12/03/2021 Influenza Vaccine 11/20/2023 COVID-19 Vaccine (1 - 2023-2 5 season) 2023 Pneumococcal Vaccine: Pediat hamlet (0-5 Years) and At-Risk Patients (6 to 49 Years) Aged Out No longer eligible b ased on patient's age to complete this topic Care Teams Rim Turning Finisher Relationship Specialty Start Date End Date System, Provider Not In PCP - General 07/26/22
--- OUTSIDE RECORDS SUMMARY | 2024-06-15 19:46 | XMS_ITS | Patient Health Record ---
Author Organization [facility] Address [address] [place] [address] Care Team Providers Care Extruding Machine Operator Name Role Phone Prerna Bravo Primary Care Provider Kenney Calvin [phone] ALLERGIES Allergen (clinical drug ingredient) Drug/Non Drug Allergy documented on EMR Reaction Allergy Type Onset Date Status bees (uncoded) Unknown Allergy Activ e Pollen pollen (uncoded) Unknown Allergy Act jluis oak trees (uncoded) Unknown Allergy Active dust (uncoded) Unknown Allergy Activ e cats (uncoded) Unknown Allergy Activ e REASON FOR REFERRAL No Information MEDICATIONS Medication SIG (Take, Route, Frequency, Duration) Notes Start Date End Date Status Advair HFA 115-21 MCG/ACT 2 puffs Inhalation Twice a day Active Hyoscyamine Sulfate 0.125 MG 1-2 tablets Orally Q 6 hours prn abdominal cramps, bloating, or gas for 30 days 11/24/2013 Not-Taking Omeprazole 20 MG TAKE 1 CAPSULE BY MOUTH EVERY DAY FOR 30 DAYS for 30 Active ProAir HFA 108 (90 Base) MCG/ACT 2 puffs as needed Inhalation every 6 hrs Active Sudafed Not-Taking Pentasa 500 MG 2 capsules Orally Four times a day for 30 day(s) 02/01/2022 Active Flonase 50 MCG/ACT 1 spray in each nostril Nasally Once a day Active Ibuprofen 200 MG 2 tablets with food or milk as needed Orally as directed Active Gas-X 80 MG 1 tablet after meals and at bedtime as needed Orally Four times a day/prn Active Mesalamine 800 MG 2 tablets Orally Three times a day for 30 day(s) 01/24/2022 Active Feosol 200 (65 Fe) MG 1 tablet Orally as directed Active Loratadine Active Imodium A-D 2 MG 1-2 tablets as needed Orally Four times a day prn loose stools for 30 days 12/31/2016 Active Albuterol Sulfate HFA 108 (90 Base) MCG/ACT 2 puffs as needed Inhalation every 6 hrs Active Asacol HD 800 MG 2 tablets Orally Three times a day for 30 days 09/18/2012 Not-Taking Amitriptyline HCl No t-Taking Hyoscyamine Sulfate Not-Taking Mesalamine 800 MG 2 tablets Orally Three times a day for 30 day(s) 07/13/2022 Active Dicyclomine HCl 10 MG 1-2 capsules Orally Every 6 hours prn abdominal cramps/discomfort for 30 day(s) 01/24/2022 Active Pentasa 500 MG 2 capsules Orally Four times a day for 30 day(s) No Substitution. Brand name medically necessary. 02/05/2022 Active IMMUNIZATIONS Vaccine Route Administration Date Status Comme nts Influenza Unknown 12/20/2017 Administered Influenza Unknown 02/13/2021 Administered SOCIAL HISTORY Sex Assigned At : Social History Observation Description Sex Assigned At Unknown PROBLEMS Problem Type ICD Code Onset Dates Problem Status W/U Status Risk SNOMED Code Notes Problem Encounter for screening for malignant neoplasm of colon (Z12.11) Active confirmed 692898535 Problem Early satiety (R68.81) Active confirmed 426076273 Problem Encounter for half-way current azathioprine therapy (Z79.899) Active confirmed 419763036 Problem 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) Active confirmed 70911339 Problem Gastroesophageal reflux (K21.9) Active confirmed Esophageal reflux finding (490305558) Problem Ulcerative colitis (K51.90) Active confirmed Ulcerative colitis (98354833) Problem 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) Active confirmed 67932559 Problem Gastroesophageal reflux disease, unspecified whether esophagitis present (K21.9) Active confirmed 816254694 PLAN OF TREATMENT Pending Test Test Name Order Date ELECTROLYTES 12/31/2016 BUN 12/31/2016 CREATININE 12/31/2016 LIVER PROFILE 02/14/2015 LIVER PROFILE 04/02/2018 LIVER PROFILE 12/31/2016 LIVER PROFILE 01/07/2014 LIVER PROFILE 02/10/2018 LIVER PROFILE 12/07/2015 LIVER PROFILE 08/19/2013 LIVER PROFILE 02/15/2016 LIVER PROFILE 03/09/2012 LIVER PROFILE 12/18/2011 LIVER PROFILE 09/13/2014 LIVER PROFILE 11/12/2013 LIVER PROFILE 10/06/2018 LIVER PROFILE 12/15/2014 LIVER PROFILE 06/18/2016 CRP 12/31/2016 CBC w DIFF 12/15/2014 CBC w DIFF 06/18/2016 CBC w DIFF 02/14/2015 CBC w DIFF 04/02/2018 CBC w DIFF 06/04/2011 CBC w DIFF 01/07/2014 CBC w DIFF 02/10/2018 CBC w DIFF 12/07/2015 CBC w DIFF 12/31/2016 CBC w DIFF 08/19/2013 CBC w DIFF 02/15/2016 CBC w DIFF 03/09/2012 CBC w DIFF 12/18/2011 CBC w DIFF 09/13/2014 CBC w DIFF 10/06/2018 CBC w DIFF 11/12/2013 SED RATE (ESR) 12/31/2016 SED RATE (ESR) 03/09/2012 HEPATITIS B SURFACE ANTIGEN 05/22/2011 CLOSTRIDIUM DIFF TOXIN A&B (C DIFF) 02/19 CULTURE, STOOL 03/09/2012 US ABD 12/18/2011 PROMETHEUS THIOPURINE METABOLITES (TPMT) 10/06/2018 PROMETHEUS THIOPURINE METABOLITES (TPMT) 06/18/2016 PROMETHEUS THIOPURINE METABOLITES (TPMT) 02/10/2018 PROMETHEUS THIOPURINE METABOLITES (TPMT) 12/07/2015 PROMETHEUS THIOPURINE METABOLITES (TPMT) 02/15/2016 PROMETHEUS THIOPURINE METABOLITES (TPMT) 12/31/2016 PROMETHEUS TPMT ENZYME 12/07/2015 PROMETHEUS TPMT GENETICS 12/07/2015 Future Test Test Name Order Date UPPER GI ENDOSCOPY 02/13/2021 COLONOSCOPY 02/13/2021 Insurance Providers Payer Name Payer Address Payer Phone Subscriber Number Group Number Insured Name Patient Relationship to Insured Coverage Start Date Coverage End Date [facility] [employer] [facility] [address] [address] [place], [place] [phone] [id number] MANSOOR ADKINS Self - patient is the insured MEDICAID OF [facility] [address] [place] [address] [id number] MANSOOR ADKINS Self - patient is the insured MEDICAL (GENERAL) HISTORY Medical History History ICD Code 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
[2024-06-15] MEDS: 0.9 % Sodium Chloride 1,000 ML 999 ML IV (20:01)
[2024-06-15 20:37] LABS: Appearance Urine Cloudy; Color Urine Dark Yellow; Glucose Urine UA Negative (Negative); Leukocyte Esterase Urine Negative (Negative); Nitrite Urine Negative (Negative); Specific Gravity - Urine 1.025 (1.005-1.025); UMIC TRIGGER UACC YES; Urine Blood Negative (Negative); Urine Ketones 40 mg/dL (Negative); Urine Protein 30 (1+) mg/dL (Neg-Trace)
[2024-06-15 20:57] LABS: Bacteria Urine 4+ (None Seen); Hyaline Casts Urine 0-2 /LPF (0-2); RBC Urine 0-2 /HPF (0-2); WBC Urine 0-5 /HPF (0-5)
[2024-06-15 21:18] VITALS: BP 134/78; PULSE 62; RESP 19; TEMP 36.7; O2SAT 98
== END 2024-06-15 21:18 | disposition home or self-care (01) ==
PROVIDERS: Registered Nurse Emergency; Emergency Provider Student in an Organized Health Care Education/Training Program
DX: M54.41 Lumbago with sciatica, right side (principal); R10.2 Pelvic and perineal pain; Z79.899 Other long term (current) drug therapy
CPT/HCPCS: 36415; 74176; 80053; 81001; 82248; 83690; 84702; 85025; 96374; 99283; 99284; J1885

== ENCOUNTER → 2024-06-15 12:11 | Outpatient (BNV) | payer OTHER, SELFPAY | PROVIDERS: Visit Provider Radiology Diagnostic Radiology | DX: R10.31 Right lower quadrant pain (principal) | CPT/HCPCS: 74176 ==

== ENCOUNTER 2024-07-07 11:23 | Outpatient (REF) | payer OTHER, SELFPAY ==
[2024-07-07 13:56] LABS: MANUAL DIFF FLAG NO
[2024-07-07 14:06] LABS: Basophils Absolute Auto 0.1 X10*3/uL (0.0-0.2); Basophils Percent Auto 0.7 % (0-2); Eosinophils Absolute Auto 0.1 X10*3/uL (0.0-0.4); Eosinophils Percent Auto 0.9 % (0-4); Hematocrit 44.3 % (37.0-47.0); Hemoglobin 14.3 g/dl (12.0-16.0); Imm Gran Abs Auto 0.02 X10*3/uL (0.00-0.03); Imm Gran Pct Auto 0.2 % (0.0-0.4); Lymphocytes Absolute Auto 2.5 X10*3/uL (1.2-4.9); Lymphocytes Percent Auto 28.9 % (20-40); Mean Corpuscular HGB Conc 32.3 g/dl (31.0-35.0); Mean Corpuscular Hemoglobin 27.4 pg (27.0-33.0); Mean Corpuscular Volume 84.9 fL (80.0-98.0); Mean Platelet Volume 11.2 fL (9.4-12.3); Monocytes Absolute Auto 0.5 X10*3/uL (0.1-1.2); Neutrophils Absolute Auto 5.4 x10*3/uL (2.0-8.3); Neutrophils Percent Auto 63.3 % (45-73); Platelet Count 240 X10*3/uL (160-400); Red Blood Count 5.22 X10*6/uL (4.20-5.50); Red Cell Distribution Width 13.8 % (11.0-16.0); White Blood Count 8.5 X10*3/uL (4.8-10.8)
[2024-07-07 14:08] LABS: Alanine Aminotransferase 32 U/L (0-31); Albumin Level 3.9 g/dL (3.5-5.0); Alkaline Phosphatase 135 U/L (39-117); Anion Gap 8 (12-20); Aspartate Amino Transferase 29 U/L (5-31); Bilirubin Total 0.6 mg/dL (0.0-1.0); Blood Urea Nitrogen 12 mg/dL (9-16); Calcium 9.1 mg/dL (8.4-10.2); Carbon Dioxide 27 mmol/L (22-29); Chloride 108 mmol/L (96-108); Cholesterol 179 mg/dL (<200); Estimated Glomerular Filt Rate > 60; Glucose Random 106 mg/dL (60-115); HDL Cholesterol 59 mg/dL (>40); LDL Cholesterol Calculated 103 mg/dL (<100); Potassium 4.1 mmol/L (3.3-5.1); Sodium 139 mmol/L (135-145); Total Protein 7.7 g/dL (6.5-8.0); Triglycerides 89 mg/dL (<150)
== END 2024-07-07 11:24 | disposition home or self-care (01) ==
LOC: HO.10HDL 11:23
PROVIDERS: Visit Provider Internal Medicine
DX: Z00.00 Encounter for general adult medical examination without abnormal findings (principal); G47.33 Obstructive sleep apnea (adult) (pediatric); I10 Essential (primary) hypertension; R10.11 Right upper quadrant pain; R74.01 Elevation of levels of liver transaminase levels
CPT/HCPCS: 36415; 80053; 80061; 85025

== ENCOUNTER 2024-08-12 15:38 | Outpatient (REF) | payer OTHER, SELFPAY ==
--- OUTSIDE RECORDS SUMMARY | 2024-08-12 18:16 | XMS_ITS | Clinical Summary ---
Author Organization [facility] Address [address] [place] [address] Care Team Providers Care Packer Denture Name Role Phone System, Provider Not In Primary Care Provider Un available Allergies No known active allergies Medications meloxicam (MOBIC) 15 MG tablet Take 1 tablet (15 mg total) by mouth daily. 30 tablet 07/26/2022 Active tiZANidine (ZANAFLEX) 4 MG tablet Take 1 tablet (4 mg total) by mouth 3 (three) times a day. 30 tablet 07/26/2022 Active Social History Tobacco Use Types Packs/Day Years Used Date Smoking Tobacco: Never Assessed Comments Unknown Sex and Gender Information Value Date Recorded Sex Assigned at Female 02/05/2023 3:02 AM EDT Legal Sex Female 6:48 PM EST Gender Identity Female 02/05/2023 3:02 AM EDT [...] (1 of 3 - 19+ 3-dose series) 11/19 Pap Smear (Ages 21-65) 12/03/1992 Mammogram 2011 Colonoscopy 12/03/2016 Pneumococcal Vaccines 50+ (1 of 1 - PCV) 12/03/2021 Zoster (Shingles) Vaccine (1 of 2) 12/03/2021 Influenza Vaccine 11/20/2023 COVID-19 Vaccine ( - 2023- season) 2023 Insurance MEDICAID OUT OF STATE [facility] Care Teams Packer Denture Relationship Specialty Start Date End Date System, Provider Not In PCP - General 07/26/22
== END 2024-08-12 15:39 | disposition home or self-care (01) ==
LOC: HO.MAMMO 15:38
PROVIDERS: PCP Internal Medicine; Visit Provider Internal Medicine
DX: Z12.31 Encounter for screening mammogram for malignant neoplasm of breast (principal)
CPT/HCPCS: 77063; 77067

== ENCOUNTER → 2024-08-12 16:00 | Outpatient (BNV) | payer OTHER, SELFPAY | PROVIDERS: PCP Internal Medicine; Visit Provider Internal Medicine | DX: Z12.31 Encounter for screening mammogram for malignant neoplasm of breast (principal) | CPT/HCPCS: 77063; 77067 ==

== ENCOUNTER 2024-08-16 08:00 | Outpatient (REF) | payer OTHER, SELFPAY ==
--- NOTE | ~2024-08-16 | US_ITS ---
CLINICAL HISTORY: PAIN,RUQ ,ELEVATED LFT US abdomen complete Comparison: 06/15/2024 CT Findings: The visualized pancreas is normal. The aorta and inferior vena cava are normal caliber. Liver measures 16.5 cm in length and demonstrates increased echogenicity. There is no intrahepatic bile duct dilatation. The common duct is 3 mm in diameter. The gallbladder is normal. There is no sonographic Blair sign. The main portal vein is antegrade. The right kidney is 10.6 cm in length. The left kidney is 9.5 cm in length. Unremarkable kidneys without hydronephrosis. Limited splenic evaluation due to body habitus. The visualized spleen is unremarkable and measures 9 cm in length. No ascites. IMPRESSION: Hepatic steatosis. This document has been electronically signed by: Carol Garcia MD on 08/16/2024 10:44:38
--- OUTSIDE RECORDS SUMMARY | 2024-08-16 08:07 | XMS_ITS | Clinical Summary ---
Author Organization [facility] Address [address] [place] [address] Care Team Providers Care Safety Lamp Keeper Name Role Phone System, Provider Not In [...] season) 2023 Insurance MEDICAID OUT OF STATE [facility] Care Teams Safety Lamp Keeper Relationship Specialty Start Date End Date System, Provider Not In PCP - General 07/26/22
== END 2024-08-16 08:01 | disposition home or self-care (01) ==
LOC: HO.US 08:00
PROVIDERS: PCP Internal Medicine; Visit Provider Internal Medicine
DX: R74.01 Elevation of levels of liver transaminase levels (principal)
CPT/HCPCS: 76700

== ENCOUNTER → 2024-08-16 08:03 | Outpatient (BNV) | payer OTHER, SELFPAY | PROVIDERS: PCP Internal Medicine; Visit Provider Radiology Diagnostic Radiology | DX: R74.01 Elevation of levels of liver transaminase levels (principal) | CPT/HCPCS: 76700 ==

== ENCOUNTER 2024-11-02 06:59 | Emergency (ER) | payer OTHER, SELFPAY ==
[2024-11-02 07:16] VITALS: BP 146/87; PULSE 71; RESP 16; TEMP 36.3; O2SAT 98; BMI 45.3
--- OUTSIDE RECORDS SUMMARY | 2024-11-02 12:20 | XMS_ITS | Patient Health Record ---
Author Organization [facility] Address [address] [place] [address] Care Team Providers Care Jewel Stripper Name Role Phone Prerna Bravo Primary Care Provider Kenney Calvin Unavailable [phone] Allergies Allergen (clinical drug ingredient) Drug/Non Drug Allergy documented on EMR Reaction Allergy Type Onset Date Status Pollen pollen (uncoded) Unknown Allergy Act jluis oak trees (uncoded) Unknown Allergy Active dust (uncoded) Unknown Allergy Activ e cats (uncoded) Unknown Allergy Activ e bees (uncoded) Unknown Allergy Activ e Reason For Referral No Information Medications Medication SIG (Take, Route, Frequency, Duration) Notes [...] Substitution. Brand name medically necessary. 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) Active confirmed Problem Esophageal reflux finding (857236014) Gastroesophageal reflux (K21.9) Active confirmed Problem Ulcerative colitis (93842150) Ulcerative colitis (K51.90) Active confirmed Problem 05333207 Chronic 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 complications (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) Active confirmed Problem 777867745 Gastroesophageal reflux disease, unspecified whether esophagitis present (K21.9) Active confirmed Plan Of Treatment Pending Test Test Name Order Date ELECTROLYTES 12/31/2016 BUN 12/31/2016 CREATININE 12/31/2016 LIVER PROFILE 12/15/2014 LIVER PROFILE 01/07/2014 LIVER PROFILE 03/09/2012 LIVER PROFILE 10/06/2018 LIVER PROFILE 02/14/2015 LIVER PROFILE 08/19/2013 LIVER PROFILE 06/18/2016 LIVER PROFILE 12/07/2015 LIVER PROFILE 02/10/2018 LIVER PROFILE 09/13/2014 LIVER PROFILE 12/18/2011 LIVER PROFILE 12/31/2016 LIVER PROFILE 02/15/2016 LIVER PROFILE 11/12/2013 LIVER PROFILE 04/02/2018 CRP 12/31/2016 CBC w DIFF 04/02/2018 CBC w DIFF 12/31/2016 CBC w DIFF 12/15/2014 CBC w DIFF 06/04/2011 CBC w DIFF 01/07/2014 CBC w DIFF 03/09/2012 CBC w DIFF 10/06/2018 CBC w DIFF 02/14/2015 CBC w DIFF 08/19/2013 CBC w DIFF 06/18/2016 CBC w DIFF 12/07/2015 CBC w DIFF 02/10/2018 CBC w DIFF 09/13/2014 CBC w DIFF 12/18/2011 CBC w DIFF 02/15/2016 CBC w DIFF 11/12/2013 SED RATE (ESR) 12/31/2016 SED RATE (ESR) 03/09/2012 HEPATITIS B SURFACE ANTIGEN 05/22/2011 CLOSTRIDIUM DIFF TOXIN A&B (C DIFF) 02/19 CULTURE, STOOL 03/09/2012 US ABD 12/18/2011 PROMETHEUS THIOPURINE METABOLITES (TPMT) 02/10/2018 PROMETHEUS THIOPURINE METABOLITES (TPMT) 02/15/2016 PROMETHEUS THIOPURINE METABOLITES (TPMT) 12/31/2016 PROMETHEUS THIOPURINE METABOLITES (TPMT) 10/06/2018 PROMETHEUS THIOPURINE METABOLITES (TPMT) 06/18/2016 PROMETHEUS THIOPURINE METABOLITES (TPMT) 12/07/2015 PROMETHEUS TPMT ENZYME 12/07/2015 PROMETHEUS TPMT GENETICS 12/07/2015 Future Test Test Name Order Date UPPER GI ENDOSCOPY 02/13/2021 COLONOSCOPY 02/13/2021 Insurance Providers Payer Name Payer Address Payer Phone Subscriber Number Group Number Insured Name Patient Relationship to Insured Coverage Start Date Coverage End Date [facility] Ruby [employer] [facility] [address] [address] [place], [place] [id number] MANSOOR ADKINS Self - patient is the insured MEDICAID OF [facility] [address] [place] [address] [phone] [id number] MANSOOR ADKINS Self - patient is the insured Medical (General) History Medical History History ICD Code Colonoscopy 02/12/2010-distal ulcerative proctitis Distal ulcerative colitis-dx'd in 2004-- started Azathioprine in 04/2011 Asthma Denies CA,DM,CVA,Lung disease,renal dise ase GERD Fibromyalgia Sleep apnea--uses CPAP Edema in lower extremities Surgical History Surgery Date(Month/Year)
--- OUTSIDE RECORDS SUMMARY | 2024-11-02 12:20 | XMS_ITS | Clinical Summary ---
Author Organization [facility] Address [address] [place] [address] Care Team Providers Care Bag Hanger Name Role Phone System, Provider Not In [...] 70 07/26/2022 12:58 PM EDT Temperature 36.7 C (98 F) 07/26/2022 12:58 PM EDT Respiratory Rate 16 [...] Zoster (Shingles) Vaccine (1 of 2) 12/03/2021 COVID-19 Vaccine (1 - 2023- season) 2023 Influenza Vaccine 11/19/2024 Insurance MEDICAID OUT OF STATE [facility] Care Teams Bag Hanger Relationship Specialty Start Date End Date System, Provider Not In PCP - General 07/26/22
== END 2024-11-02 11:07 | disposition left against medical advice (07) ==
LOC: HO.ED 10:57
PROVIDERS: Emergency Provider Emergency Medicine
DX: L72.9 Follicular cyst of the skin and subcutaneous tissue, unspecified (principal); Z53.21 Procedure and treatment not carried out due to patient leaving prior to being seen by health care provider
CPT/HCPCS: 99281

== ENCOUNTER 2025-03-19 02:58 | Emergency (ER) | payer OTHER, SELFPAY ==
--- NOTE | 2025-03-19 | ECG_ITS ---
Test Reason : DIZZINESS Blood Pressure : */* mmHG Vent. Rate : 65 BPM Atrial Rate : 65 BPM P-R Int : 190 ms QRS Dur : 94 ms QT Int : 388 ms P-R-T Axes : 62 40 34 degrees QTcB Int : 403 ms Normal sinus rhythm with sinus arrhythmia Normal ECG When compared with ECG of 30-Mar-2022 22:35, No significant change was found Referred By: Generic ED Physician Electronically Signed By: HALLEY PIMENTEL
--- NOTE | ~2025-03-19 | MR_ITS ---
CLINICAL HISTORY: dizness ? stroke MR Brain without gadolinium Comparison: CT/REG/SR - CT ANGIO HEAD NECK - 03/19/25 06:[address] - CT ANGIO HEAD NECK - 03/19/25 06:19 EST Findings: No restricted diffusion. No intra-axial mass or hemorrhage. No midline shift. No hydrocephalus. Greater than 50% CSF signal is demonstrated throughout the sella turcica with an flattened appearance of the pituitary gland. Vascular flow voids are intact. Orbital contents are unremarkable. The sinuses and mastoid air cells are clear. No focal bone lesion. IMPRESSION: No acute intracranial brain MR findings. Partially empty sella turcica, for which clinical correlation is recommended given presenting symptoms. This document has been electronically signed by: Ba Butts MD on 03/19/2025 11:44:56
--- NOTE | ~2025-03-19 | CT_ITS ---
CLINICAL HISTORY: dizziness, blurred vision CT Head without contrast. CT angiography head and neck with contrast. 3D Postprocessing. Comparison: CT/SR - CT HEAD WITHOUT IV CONTRAST - 01/25/24 15:02 EDT Findings: HEAD CT: No intra-axial mass, midline shift, hydrocephalus, or acute hemorrhage. No significant atrophy-like change or white matter disease. The visualized paranasal sinuses and mastoid air cells are normal. The orbits are within normal limits. There is no acute fracture. HEAD AND NECK CTA: Artifact from IV contrast injection and motion artifact obscures the proximal right common carotid and vertebral arteries. Otherwise the aortic arch and cervical great vessels are patent. Intracranial arteries are patent. No aneurysm, dissection, or occlusion. No abnormal intracranial enhancement. The visualized thyroid gland is unremarkable. No cervical mass or fluid collection. Lung apices clear. No acute fracture. IMPRESSION: 1. Head CT without acute intracranial findings. 2. Limited evaluation of the proximal right vertebral and common carotid artery due to artifact, otherwise patent neck CTA without focal occlusions, dissection, or aneurysm. 3. Patent intracranial CTA without focal occlusions, dissection, or aneurysm. This document has been electronically signed by: Ba Butts MD on 03/19/2025 07:35:30
[2025-03-19 03:07] VITALS: BP 185/104; PULSE 73; RESP 20; TEMP 36.2; O2SAT 96; BMI 39.3
--- NOTE | 2025-03-19 03:31 | ED_ITS ---
HPI - Dizziness General Chief Complaint: Dizziness Stated Complaint: Dizziness Time Seen by Provider: 03/19/25 03:14 Source: patient Mode of arrival: ambulatory Limitations: no limitations History of Present Illness ED Provider: Daniel LEWIS HPI Narrative: The patient is a 54-year-old female with a history of asthma, fibromyalgia, and ulcerative colitis, who reports going to bed feeling well at midnight , however then awakened at approximately 02:00 with sudden-onset generalized dizziness. Symptoms are worse when she lays down or turns her head and are described as feeling like ?waves of the ocean? rather than true spinning. Associated features include blurred vision, nausea (no emesis), a transient occipital headache that occurred around the same time as the dizziness but then resolved, and a brief episode of chest tightness during the onset of dizziness which has resolved. The patient denies other focal neurological deficit. She denies prior similar episodes, denies prior diagnosis of vertigo, patient denies any recent falls, car accidents, or other head trauma, denies anticoagulation. Patient denies any associated fever, or cough, no sick contacts reported. Related Data Home Medications ?Medication ?Instructions ?Recorded ?Confirmed albuterol sulfate 90 mcg/actuation inhalation 01/23/24 02/27/24 aerosol inhaler (Ventolin HFA) amlodipine 2.5 mg tablet 2.5 mg PO DAILY 01/23/2412/12 diclofenac sodium 75 mg 75 mg PO ONCE 01/23/2402/26 tablet,delayed release losartan 100 1 tab PO DAILY 01/23/24 1112/12 mg-hydrochlorothiazide 25 mg tablet melatonin 10 mg capsule 10 mg PO BEDTIME PRN 4 02/27/24 Previous Rx's ?Medication ?Instructions ?Recorded cock up splint #2 ea 07/27/21 epinephrine 0.3 mg/0.3 mL 0.3 mg (0.3 mL) IM Q4H PRN 0 12/16/21 injection, auto-injector (EpiPen) anaphylaxis #2 ea naproxen 500 mg tablet 500 mg PO BID PRN pain 7 day s #14 01/25/24 tabs gabapentin 300 mg capsule 300 mg PO TID #90 caps 04/08 lidocaine 4 % topical patch 1 patch topical DAILY PRN back 06/15/24 pain #30 ea methocarbamol 500 mg tablet 500 mg PO TID PRN muscle s pasm #90 08/11/24 tabs albuterol sulfate 90 mcg/actuation 2 puff inhalation Q 6H PRN Wheezing 10/07/24 aerosol inhaler (ProAir HFA) 30 days #1 ea fluticasone fur. 200 mcg-umeclid 1 inh inhalation LAURA Y 30 days #1 10/07/24 62.5 mcg-vilant 25 mcg ea inhalat.powder (Trelegy Ellipta) furosemide 40 mg tablet 40 mg PO DAILY 30 days #30 t abs 10/07/24 montelukast 10 mg tablet 10 mg PO DAILY #30 tabs 09/20 meclizine 25 mg tablet 25 mg PO TID PRN dizziness # 15 tabs 03/19/25 Allergies Allergy/AdvReac Type Severity Reaction Status Date / Time shrimp Allergy Intermediate SWELLING Verified 03/19/25 03:11 cat dander (cats) Allergy Unknown Unknown Verified 03/19/25 03:11 pollen extracts Allergy Unknown Unknown Verified 03/19/25 03:11 walnut Allergy Unknown Unknown Verified 03/19/25 03:11 bee pollen (bee stings) Allergy Wheezing Verified 03/19/25 03:11 dog dander (dogs) AdvReac Unknown Unknown Verified 03/19/25 03:11 Review of Systems 2 Review of Systems: Yes all other systems are reviewed and are negative [facility] Past Medical History Medical History Sleep apnea Asthma GERD (gastroesophageal reflux disease) Fibromyalgia Ulcerative colitis (~2004) Surgical History History of colonoscopy History of Social History Social History Household Members: Spouse Housing: Apartment Alcohol intake: never Patient Tobacco Use Status: Never used Tobacco Physical Exam 2 Vital Signs: Vital Signs: Last Vital Signs Temp 97.6 F 03/19/25 15:32 Pulse 65 03/19/25 15:32 Resp 14 03/19/25 15:32 BP 180/105 H 03/19/25 15:32 Pulse Ox 98 03/19/25 15:32 O2 Del Method Room Air 03/19/25 15:32 BMI result Body Mass Index 39.3 CONSTITUTIONAL: The patient appears non-toxic, well nourished and in no acute distress. Vital signs as documented. HEAD: Atraumatic, normocephalic. EYES: EOMs intact, pupils equal, round, and reactive to light, conjunctiva clear, no exudate. ENT: Nares patent, no discharge. Airway patent, no audible stridor, visible mucosa is pink and moist without noted lesions. NECK: Trachea is midline, no obvious masses or gross abnormalities. CHEST: Symmetric movement, normal appearance. LUNGS: LS present and CTAB, no w/r/r. Non-labored work of breathing. CARDIAC: Regular Rhythm, S1/S2 appreciated, no murmurs, rubs or gallops. ABDOMEN: Abdomen soft and non-tender x4 quadrants, no palpable masses or organomegaly. : Deferred. EXTREMITIES: Normal tone, moves all extremities spontaneously without reported pain. No obvious acute injury or deformity noted. NEURO: Alert and oriented x3, CN II-XII intact. Cerebellar Functioning intact. No sensory or motor deficits. Strength 5/5 x4. Speech clear and appropriate. Positive Alexander-Hallpike on the right with reproduction of symptoms and nystagmus. PSYCH: normal affect, appropriate eye contact, fluid speech, with appropriate response to questioning. No reported suicidality or homicidality. SKIN: Warm, dry, color appropriate, normal turgor. No rashes noted. NIH Stroke Scale Internal: Initial- Upon Arrival Level of Consciousness: Alert Level of Consciousness Questions: Answers both questions correctly Level of Consciousness Commands: Performs both tasks correctly Best Gaze: Normal Visual: No visual loss Facial Palsy: Normal Motor Arm (Right): No drift Motor Arm (Left): No drift Motor Leg (Right): No drift Motor Leg (Left): No drift Limb Ataxia: Absent Sensory: Normal Best Language: No aphasia Dysarthia: Normal Extinction and Inattention: No abnormality Score: 0 Course Reevaluation(s) Reevaluation #1: 03/19/2025 07:53 I received sign-out by Dr. Fuentes'bryant the overnight attending, patient was signed out to me pending a CTA of the head and neck patient presented with dizziness which started about 02:00. I will order an MRI to rule out cerebellar infarct Time: 07:54 Reevaluation #2: 15:11 MRI was done there is no evidence of stroke so I think at this point patient can be discharged home she is feeling much better since she came in clinical picture consistent with peripheral vertigo we will discharge on meclizine Time: 15:11 Medications Administered Discontinued Medications Generic Name Dose Route Start Last Admin Trade Name Sixto PRN Reason Stop Dose Admin Diazepam 5 mg 03/19/25 05:09 03/19/25 05:14 Diazepam 10 Mg/2 Ml Cartridge IVPUSH 03/19/25 05:10 5 mg STAT STA Administration Diazepam 5 mg 03/19/25 08:50 03/19/25 09:20 Diazepam 5 Mg Tablet PO 03/19/25 08:51 5 mg ONCE ONE Administration Diphenhydramine HCl 50 mg 03/19/25 03:47 03/19/25 03:53 Diphenhydramine Hcl 50 Mg/Ml Vial IVPUSH 03/19/25 03:48 50 mg ONCE ONE Administration Sodium Chloride 1,000 mls @ 999 mls/hr 03/19/25 04:00 03/19/25 05:13 Ns IV 03/19/25 05:00 Infused .Q1H1M KARYN Infusion Sodium Chloride 1,000 mls @ 999 mls/hr 03/19/25 13:00 03/19/25 14:49 Ns IVCONT 03/19/25 14:00 Infused .Q1H1M KARYN Infusion Iohexol 70 ml 03/19/25 06:53 03/19/25 06:53 Iohexol 350 Mg/Ml 100 Ml Infus..Btl IV 03/19/25 06:54 70 ml ONCE ONE Administration Meclizine HCl 25 mg 03/19/25 03:47 03/19/25 03:53 Meclizine Hcl 25 Mg Tablet PO 03/19/25 03:48 25 mg ONCE ONE Administration Meclizine HCl 25 mg 03/19/25 12:49 03/19/25 13:19 Meclizine Hcl 25 Mg Tablet PO 03/19/25 12:50 25 mg ONCE ONE Administration Ondansetron HCl 4 mg 03/19/25 03:47 03/19/25 03:53 Ondansetron Hcl 4 Mg/2 Ml Vial IVPUSH 03/19/25 03:48 4 mg ONCE ONE Administration Medical Decision Making Medical Decision Making MDM Narrative: 3:51 AM 03/19/2025 (Maria LEWIS): The patient is a 54-year-old female with a history of asthma, fibromyalgia, and ulcerative colitis, who reports going to bed feeling well at midnight , however then awakened at approximately 02:00 with sudden-onset generalized dizziness. Symptoms are worse when she lays down or turns her head and are described as feeling like ?waves of the ocean? rather than true spinning. Associated features include blurred vision, nausea (no emesis), a transient occipital headache that occurred around the same time as the dizziness but then resolved, and a brief episode of chest tightness during the onset of dizziness which has resolved. The patient denies other focal neurological deficit. She denies prior similar episodes, denies prior diagnosis of vertigo, patient denies any recent falls, car accidents, or other head trauma, denies anticoagulation. Patient denies any associated fever, or cough, no sick contacts reported. On exam the patient has no unilateral weakness or sensory deficit, no cranial nerve deficit appreciated. The patient does have a positive Alexander-Hallpike assessment on the right with horizontal nystagmus and reproduction of symptoms. Remainder of exam is benign. The patient will be treated with Benadryl, meclizine, IV fluid hydration, Zofran for nausea, and we will obtain a basic laboratory evaluation. Following interventions we will attempt Lorena maneuver to resolve the patient's symptoms. If patient has no resolution of symptoms with the Lorena maneuver, we will obtain CT imaging to rule out less likely central neurologic process. 3:58 AM 03/19/2025 (Maria LEWIS): Patient's EKG is nonischemic, troponin is pending. CBC demonstrates no leukocytosis or anemia, chemistry demonstrates no electrolyte abnormality, no significant HEMALATHA although BUN is mildly elevated at 23, indicating likely prerenal azotemia, we will continue with plan for IV fluid hydration. The patient's LFTs are mildly elevated with AST 38, ALT 41, alkaline phosphatase 147, normal T bili. Ethanol level is negative. 4:14 AM 03/19/2025 (Maria LEWIS): Patient will be signed out to Dr. Roa. I received sign-out from my collegue DEBBIE Velez I was informed by the patient's nurse that the patient was complaining of back pain. Patient was given a dose of IV diazepam. Patient states that as long as she does not move, she does not have any dizziness. After the dose of IV diazepam, patient states that if she moves her head a certain way, she is still feels dizzy and she also continues having blurred vision. CT scan of the head neck pending sign-out given to my colleague Dr. Rueda Admission/Observation Consideration of admission/observation: Escalation of care including admission/observation considered Lab Data MDM Lab Attestation statement: I reviewed the patient's lab results. 03/19/25 03:32 03/19/25 03:32 Labs: Lab Results 03/19/25 03/19/25 Range/Units 03:32 04:36 WBC 8.2 (4.8-10.8) X10*3/uL RBC 5.39 (4.20-5.50) X10*6/uL Hgb 14.9 (12.0-16.0) g/dl Hct 46.3 (37.0-47.0) % MCV 85.9 (80.0-98.0) fL MCH 27.6 (27.0-33.0) pg MCHC 32.2 (31.0-35.0) g/dl RDW 13.6 (11.0-16.0) % Plt Count 227 (160-400) X10*3/uL MPV 10.9 (9.4-12.3) fL Immature Gran % (Auto) 0.2 (0.0-0.4) % Neut % (Auto) 61.7 (45-73) % Lymph % (Auto) 28.7 (20-40) % [place] % (Auto) 7.3 (2-11) % Eos % (Auto) 1.5 (0-4) % Baso % (Auto) 0.6 (0-2) % Lymph # (Auto) 2.4 (1.2-4.9) X10*3/uL [place] # (Auto) 0.6 (0.1-1.2) X10*3/uL Eos # (Auto) 0.1 (0.0-0.4) X10*3/uL Baso # (Auto) 0.1 (0.0-0.2) X10*3/uL Abs Immat Gran (auto) 0.02 (0.00-0.03) X10*3/uL Absolute Neuts (auto) 5.1 (2.0-8.3) x10*3/uL Absolute Nucleated RBC 0.000 (0.0-0.012) X10*3/uL Nucleated RBC % (auto) 0.0 (0.0-0.2) /100WBC Sodium 142 (135-145) mmol/L Potassium 3.8 (3.3-5.1) mmol/L Chloride 107 (96-108) mmol/L Carbon Dioxide 25 (22-29) mmol/L Anion Gap 14 (12-20) BUN 23 H (9-16) mg/dL Creatinine 0.70 (0.5-1.4) mg/dL Estim Creat Clear Calc 113.0 Estimated GFR > 60 Random Glucose 125 H (60-115) mg/dL Calcium 9.4 (8.4-10.2) mg/dL Total Bilirubin 0.2 (0.0-1.0) mg/dL AST 38 H (5-31) U/L ALT 41 H (0-31) U/L Alkaline Phosphatase 147 H (39-117) U/L Troponin I High Sens < 2.7 (<3.5-17.0) ng/L Total Protein 7.9 (6.5-8.0) g/dL Albumin 4.5 (3.5-5.0) g/dL Urine Color Yellow Urine Appearance Clear Urine pH 5.5 (5.0-9.0) Ur Specific [place] 1.020 (1.005-1.025) Urine Protein Negative (Neg-Trace) mg/dL Urine Glucose (UA) Negative (Negative) mg/dL Urine Ketones Negative (Negative) mg/dL Urine Blood Negative (Negative) Urine Nitrite Negative (Negative) Ur Leukocyte Esterase Small (1+) H (Negative) Urine RBC 0-2 (0-2) /HPF Urine WBC 6-10 H (0-5) /HPF Ur Squamous Epith Cells 6-10 (0-2) /HPF Urine Bacteria 1+ (None Seen) Hyaline Casts 0-2 (0-2) /LPF Urine Opiates Screen Not Detected (Not Detect) Ur Buprenorphine Scrn Not Detected (Not Detect) ng/mL Ur Oxycodone Screen Not Detected (Not Detect) ng/mL Urine Methadone Screen Not Detected (Not Detect) ng/mL Urine Fentanyl Screen Not Detected (Not Detect) Ur Barbiturates Screen Not Detected (Not Detect) Ur Phencyclidine Scrn Not Detected (Not Detect) Ur Amphetamines Screen Not Detected (Not Detect) U Benzodiazepines Scrn Not Detected (Not Detect) Urine Cocaine Screen Not Detected (Not Detect) U Marijuana (THC) Screen Not Detected (Not Detect) Ethyl Alcohol < 10 mg/dL Independent Interpretation I performed an independent interpretation of an: EKG (EKG shows sinus rhythm with a rate of 65, no evidence of acute ischemia, no ST elevation, no ectopy. QTC 403. Compared to previous on 03/30/2022 there are no significant morphology changes.) External Record Review External record reviewed: Outpatient record and Prior outpatient labs Discharge Plan Discharge Clinical Impression: Dizziness Patient Disposition: Home, Self-Care Instructions: Dizziness (ED) Additional Instructions: Follow-up with your primary care physician on Friday return to the emergency room if worse we are going to send medication for the dizziness with the pharmacy Prescriptions: New meclizine 25 mg tablet 25 mg PO TID PRN (Reason: dizziness) Qty: 15 0RF No Action methocarbamol 500 mg tablet 500 mg PO TID PRN (Reason: muscle spasm) Qty: 90 1RF Rx Instructions: No driving while taking this medication. Do no take with alcohol or other METAL HANGING HELPER Depressants Trelegy Ellipta 200-62.5-25 mcg blister with device 1 inh inhalation DAILY 30 Days Qty: 1 6RF furosemide 40 mg tablet 40 mg PO DAILY 30 Days Qty: 30 6RF albuterol sulfate [ProAir HFA] 90 mcg/actuation HFA aerosol inhaler 2 puff inhalation Q6H PRN (Reason: Wheezing) 30 Days Qty: 1 6RF montelukast 10 mg tablet 10 mg PO DAILY Qty: 30 6RF epinephrine [EpiPen] 0.3 mg/0.3 mL auto-injector 0.3 mg IM Q4H PRN (Reason: anaphylaxis) Qty: 2 0RF naproxen 500 mg tablet 500 mg PO BID PRN (Reason: pain) 7 Days Qty: 14 0RF lidocaine 4 % adhesive patch,medicated 1 patch topical DAILY PRN (Reason: back pain) Qty: 30 0RF (DME) cock up splint See Rx Instructions .Route .MEDSUPPLY Qty: 2 0RF Rx Instructions: As directed. Wear at night losartan-hydrochlorothiazide 100-25 mg tablet 1 tab PO DAILY albuterol sulfate [Ventolin HFA] 90 mcg/actuation HFA aerosol inhaler inhalation amlodipine 2.5 mg tablet 2.5 mg PO DAILY diclofenac sodium 75 mg tablet,delayed release (DR/EC) 75 mg PO ONCE melatonin 10 mg capsule 10 mg PO BEDTIME PRN gabapentin 300 mg capsule 300 mg PO TID Qty: 90 1RF Interventions: ED Discharge Assessment Last Done: 03/19/25 15:32 Discharge Date/Time: 03/19/25 15:33 Print Language: Malian
[2025-03-19 03:33] VITALS: BP 146/81; PULSE 66; RESP 21; O2SAT 96
--- OUTSIDE RECORDS SUMMARY | 2025-03-19 03:33 | XMS_ITS | Patient Health Record ---
Author Organization [facility] Address [address] [place] [address] Care Team Providers Care Pier Hand Helper Name Role Phone Prerna Bravo Primary Care Provider Unavailab Kenney Alvarez Unavailable [phone] Allergies Allergen (clinical drug ingredient) Drug/Non Drug Allergy documented on EMR Reaction Allergy Type Onset Date Status Information temporarily unavailable bees (uncoded) Unknown Allergy Active Information temporarily unavailable cats (uncoded) Unknown Allergy Active Information temporarily unavailable dust (uncoded) Unknown Allergy Active Information temporarily unavailable oak trees (uncoded) Unknown Allergy Active Information temporarily unavailable pollen (uncoded) Unknown Allergy Active Reason For Referral No Information Medications Medication SIG (Take, Route, Frequency, Duration) Notes Start Date End Date Status Advair HFA 115-21 MCG/ACT Aerosol 2 puffs Inhalation Twice a day Active Hyoscyamine Sulfate 0.125 MG Tablet 1-2 tablets Orally Q 6 hours prn abdominal cramps, bloating, or gas; Duration: 30 days 11/24/2013 Not-Taking/P RN Omeprazole 20 MG Capsule Delayed Release TAKE 1 CAPSULE BY MOUTH EVERY DAY FOR 30 DAYS; Duration: 30 Active ProAir HFA 108 (90 Base) MCG/ACT Aerosol Solution 2 puffs as needed Inhalation every 6 hrs Active Sudafed Not-Taking /P RN Pentasa 500 MG Capsule Extended Release 2 capsules Orally Four times a day; Duration: 30 day(s) 02/01/2022 Active Flonase 50 MCG/ACT Suspension 1 spray in each nostril Nasally Once a day Active Ibuprofen 200 MG Capsule 2 tablets with food or milk as needed Orally as directed Active Gas-X 80 MG Tablet Chewable 1 tablet after meals and at bedtime as needed Orally Four times a day/prn Active Mesalamine 800 MG Tablet Delayed Release 2 tablets Orally Three times a day; Duration: 30 day(s) 01/24/2022 Active Feosol 200 (65 Fe) MG Tablet 1 tablet Orally as directed Active Loratadine Active Imodium A-D 2 MG Tablet 1-2 tablets as needed Orally Four times a day prn loose stools; Duration: 30 days 12/31/2016 Active Albuterol Sulfate HFA 108 (90 Base) MCG/ACT Aerosol Solution 2 puffs as needed Inhalation every 6 hrs Active Asacol HD 800 MG Tablet Delayed Release 2 tablets Orally Three times a day; Duration: 30 days 09/18/2012 Not-Taking/P RN Amitriptyline HCl No t-Taking/P RN Hyoscyamine Sulfate Not-Taking/P RN Mesalamine 800 MG Tablet Delayed Release 2 tablets Orally Three times a day; Duration: 30 day(s) 07/13/2022 Active Dicyclomine HCl 10 MG Capsule 1-2 capsules Orally Every 6 hours prn abdominal cramps/discomfort ; Duration: 30 day(s) 01/24/2022 Active Pentasa 500 MG Capsule Extended Release 2 capsules Orally Four times a day; Duration: 30 day(s) No Substitution. Brand name medically necessary. 02/05/2022 Active Immunizations Vaccine Route Administration Date Status Comme nts Influenza Unknown 12/20/2017 Administered Influenza Unknown 02/13/2021 Administered Social History Social History Additional Details Category Social Info Options Details Miscellaneous: Marital status: 27 year re lationship Occupation: [employer] Section Notes: Does not smoke nor use sig. amounts of alcohol Does not smoke nor use sig. amounts of alcohol Does not smoke nor use sig. amounts of alcohol Does not smoke nor use sig. amounts of alcohol Does not smoke nor use sig. amounts of alcohol Does not smoke nor use sig. amounts of alcohol Does not smoke nor use sig. amounts of alcohol Nonsmoker; no significant al cohol Nonsmoker; no significant al cohol Nonsmoker; no significant al cohol Nonsmoker; no significant al cohol Nonsmoker; no significant al cohol Nonsmoker; no significant al cohol Nonsmoker; no significant al cohol Nonsmoker; no significant al cohol Problems Problem Type SNOMED Code ICD Code Onset Dates Problem Status W/U Status Risk Notes Problem Information temporarily unavailable Encounter for screening for malignant neoplasm of colon (Z12.11) Active confirmed Problem Information temporarily unavailable Early satiety (R68.81) Active confirmed Problem Information temporarily unavailable Encounter for shelter current azathioprine therapy (Z79.899) Active confirmed Problem Information temporarily unavailable 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) Active confirmed Problem Information temporarily unavailable Gastroesophageal reflux (K21.9) Active confirmed Problem Information temporarily unavailable Ulcerative colitis (K51.90) Active confirmed Problem Information temporarily unavailable 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) Active confirmed Problem Information temporarily unavailable Gastroesophageal reflux disease, unspecified whether esophagitis present (K21.9) Active confirmed Plan Of Treatment Pending Test Test Name Order Date ELECTROLYTES 12/31/2016 BUN 12/31/2016 CREATININE 12/31/2016 LIVER PROFILE 04/02/2018 LIVER PROFILE 12/31/2016 LIVER PROFILE 03/09/2012 LIVER PROFILE 08/19/2013 LIVER PROFILE 11/12/2013 LIVER PROFILE 02/15/2016 LIVER PROFILE 06/18/2016 LIVER PROFILE 12/18/2011 LIVER PROFILE 02/14/2015 LIVER PROFILE 01/07/2014 LIVER PROFILE 09/13/2014 LIVER PROFILE 12/15/2014 LIVER PROFILE 12/07/2015 LIVER PROFILE 02/10/2018 LIVER PROFILE 10/06/2018 CRP 12/31/2016 CBC w DIFF 04/02/2018 CBC w DIFF 01/07/2014 CBC w DIFF 11/12/2013 CBC w DIFF 03/09/2012 CBC w DIFF 02/15/2016 CBC w DIFF 02/14/2015 CBC w DIFF 06/04/2011 CBC w DIFF 12/18/2011 CBC w DIFF 06/18/2016 CBC w DIFF 12/31/2016 CBC w DIFF 02/10/2018 CBC w DIFF 10/06/2018 CBC w DIFF 08/19/2013 CBC w DIFF 12/07/2015 CBC w DIFF 12/15/2014 CBC w DIFF 09/13/2014 SED RATE (ESR) 12/31/2016 SED RATE (ESR) 03/09/2012 HEPATITIS B SURFACE ANTIGEN 05/22/2011 CLOSTRIDIUM DIFF TOXIN A&B (C DIFF) 02/19 CULTURE, STOOL 03/09/2012 US ABD 12/18/2011 PROMETHEUS THIOPURINE METABOLITES (TPMT) 06/18/2016 PROMETHEUS THIOPURINE METABOLITES (TPMT) 02/15/2016 PROMETHEUS THIOPURINE METABOLITES (TPMT) 12/31/2016 PROMETHEUS THIOPURINE METABOLITES (TPMT) 12/07/2015 PROMETHEUS THIOPURINE METABOLITES (TPMT) 02/10/2018 PROMETHEUS THIOPURINE METABOLITES (TPMT) 10/06/2018 PROMETHEUS TPMT ENZYME 12/07/2015 PROMETHEUS TPMT GENETICS 12/07/2015 Future Test Test Name Order Date UPPER GI ENDOSCOPY 02/13/2021 COLONOSCOPY 02/13/2021 Insurance Providers Payer Name Payer Address Payer Phone Subscriber Number Group Number Insured Name Patient Relationship to Insured Coverage Start Date Coverage End Date [facility] [address] [address] [place], [place] [id number] MANSOOR ADKINS Self - patient is the insured MEDICAID OF [employer] [address] [place] [address] [id number] MANSOOR ADKINS Self - patient is the insured Medical (General) History Medical History History ICD Code Colonoscopy 02/12/2010-distal ulcerative proctitis Distal ulcerative colitis-dx'd in 2004-- started Azathioprine in 04/2011 Asthma Denies [place],DM,CVA,Lung disease,renal dise ase GERD Fibromyalgia Sleep apnea--uses CPAP Edema in lower extremities Surgical History Surgery Date(Month/Year)
--- OUTSIDE RECORDS SUMMARY | 2025-03-19 03:33 | XMS_ITS | Clinical Summary ---
Author Organization [facility] Address [address] [place] [address] Care Team Providers Care Scrap Dealer Name Role Phone System, Provider Not In [...] Vaccine (1 of 2) 12/03/2021 Influenza Vaccine 11/19/2024 COVID-19 Vaccine (1 - 2023- season) 2024 RSV Vaccine 50 years and old er and Patients (1 - 1-dose 75+ series) 12/03/2046 Insurance MEDICAID OUT OF STATE [facility] [place] [address] Care Teams Scrap Dealer Relationship Specialty Start Date End Date System, Provider Not In PCP - General 07/26/22
[2025-03-19 03:37] LABS: Hematocrit 46.3 % (37.0-47.0); Hemoglobin 14.9 g/dl (12.0-16.0); Imm Gran Abs Auto 0.02 X10*3/uL (0.00-0.03); Imm Gran Pct Auto 0.2 % (0.0-0.4); Lymphocytes Absolute Auto 2.4 X10*3/uL (1.2-4.9); MANUAL DIFF FLAG NO; Mean Corpuscular HGB Conc 32.2 g/dl (31.0-35.0); Mean Corpuscular Hemoglobin 27.6 pg (27.0-33.0); Mean Corpuscular Volume 85.9 fL (80.0-98.0); NRBC Abs Auto 0.000 X10*3/uL (0.0-0.012); NRBC Pct Auto 0.0 /100WBC (0.0-0.2); Platelet Count 227 X10*3/uL (160-400); Red Blood Count 5.39 X10*6/uL (4.20-5.50); White Blood Count 8.2 X10*3/uL (4.8-10.8)
[2025-03-19 03:54] LABS: Alanine Aminotransferase 41 U/L (0-31); Albumin Level 4.5 g/dL (3.5-5.0); Alkaline Phosphatase 147 U/L (39-117); Anion Gap 14 (12-20); Aspartate Amino Transferase 38 U/L (5-31); Blood Urea Nitrogen 23 mg/dL (9-16); Calcium 9.4 mg/dL (8.4-10.2); Carbon Dioxide 25 mmol/L (22-29); Chloride 107 mmol/L (96-108); Creatinine Clr Calc Pharmacy 113.0; Estimated Glomerular Filt Rate > 60; Potassium 3.8 mmol/L (3.3-5.1); Sodium 142 mmol/L (135-145); Total Protein 7.9 g/dL (6.5-8.0)
[2025-03-19 04:01] LABS: Troponin-I High Sensitivity < 2.7 ng/L (<3.5-17.0)
[2025-03-19 04:47] LABS: Appearance Urine Clear; Glucose Urine UA Negative (Negative); PH 5.5 (5.0-9.0); Specific Gravity - Urine 1.020 (1.005-1.025); UMIC TRIGGER UACC YES
[2025-03-19 04:52] LABS: UACC Culture Trigger YES
[2025-03-19 04:57] LABS: Cannabinoid Screen Urine Not Detected (Not Detect)
[2025-03-19] MEDS: diazePAM 10 MG/2 ML CARTRIDGE 5 MG IVPUSH (05:14)
[2025-03-19] MEDS: iohexoL 350 MG/ML 100 ML INFUS..BTL 70 ML IV (06:53)
[2025-03-19 08:44] VITALS: BP 152/87; PULSE 72; RESP 16; TEMP 37; O2SAT 98
--- NOTE | 2025-03-19 08:46 | PC.NURSE ---
Resumed care of pt at 0700, was at bedside, she is currently resting comfortably. Pt reporting pain in her back d/t her sciatic, this RN offered repsitioning however pt declined. MRI form filled out at this time by RN and biostatistics professor. Pt requesting pain medication at this time, home medication rec being completed and MD will be updated once complete. call zhang within reach, pt remains on monitor.
--- NOTE | 2025-03-19 10:11 | PC.NURSE ---
Pt removed from monitors at this time and brought down to MRI with transport, aware and okay'd monitors to be removed at this time
[2025-03-19 10:45] VITALS: BP 136/75; PULSE 64; RESP 16; TEMP 36.6; O2SAT 95
--- NOTE | 2025-03-19 10:47 | PC.NURSE ---
Pt back from MRI, placed back on monitor, pt currently sleeping at this time
--- NOTE | 2025-03-19 12:53 | PC.NURSE ---
Attempted to get pt to sit and stand, pt sitting on the edge of the bed reporting the room is still spinning, blurry vision worsening with movement, ZELAYA still noted in the back of her head. This RN and MD stood pt and she stated her vision was staying blurry, needing a lot of balance help at this time. MD to place more orders.
[2025-03-19 13:19] VITALS: BP 180/105; PULSE 65; RESP 14; TEMP 36.4; O2SAT 98
[2025-03-19 15:32] VITALS: BP 180/105; PULSE 65; RESP 14; TEMP 36.4; O2SAT 98
== END 2025-03-19 15:33 | disposition home or self-care (01) ==
PROVIDERS: Emergency Medicine; Emergency Provider Emergency Medicine
DX: R42 Dizziness and giddiness (principal); R07.89 Other chest pain; R51.9 Headache, unspecified; H53.8 Other visual disturbances; R11.0 Nausea; Z51.81 Encounter for therapeutic drug level monitoring; Z79.899 Other long term (current) drug therapy
CPT/HCPCS: 36415; 70496; 70498; 70551; 80053; 80307; 81001; 84484; 85025; 87086; 93005; 96361; 96374; 96375; 99285; J1200; J2405; J3360; Q9967

== ENCOUNTER → 2025-03-19 03:29 | Outpatient (BNV) | payer OTHER, SELFPAY | PROVIDERS: Emergency Provider Emergency Medicine; Visit Provider Internal Medicine | DX: R42 Dizziness and giddiness (principal) | CPT/HCPCS: 93010 ==

== ENCOUNTER 2025-04-19 11:14 | Emergency (ER) | payer OTHER, SELFPAY ==
--- NOTE | ~2025-04-19 | XR_ITS ---
EXAMINATION: XR CHEST CLINICAL INFORMATION: sob COMPARISON: None available. TECHNIQUE: 2 views of the chest were obtained. FINDINGS: The lungs are well-expanded and clear acute process. Heart size and pulmonary vascularity is normal. There is moderate spondylosis dorsal spine. No aggressive lytic or sclerotic process seen. XR/XR chest 2V IMPRESSION: Moderate spondylosis dorsal spine. No acute cardiopulmonary process. Electronically signed by: Israel Jin MD 04/19/2025 12:12 PM EST
[2025-04-19 11:16] VITALS: BP 137/68; PULSE 106; RESP 22; TEMP 37.7; O2SAT 96; BMI 41.6
--- NOTE | 2025-04-19 11:17 | ED_ITS ---
HPI - SOB/Dyspnea General Chief Complaint: Asthma Stated Complaint: SOB, asthma Time Seen by Provider: 04/19/25 12:01 Source: patient Mode of arrival: ambulatory Limitations: no limitations History of Present Illness ED Provider: DAILY ARENAS PA-C HPI Narrative: 54-year-old female with past medical history significant for asthma, fibromyalgia, UC presents to the ED today for evaluation of cough, shortness of breath since last night. Reports using her albuterol inhaler without improvement. She last use this last night. Reports cough productive of white sputum and chest pain on coughing only. Denies any documented fever, chills, sore throat, nausea, vomiting, diarrhea. No sick contacts. Related Data Home Medications ?Medication ?Instructions ?Recorded ?Confirmed albuterol sulfate 90 mcg/actuation inhalation 01/23/24 02/27/24 aerosol inhaler (Ventolin HFA) amlodipine 2.5 mg tablet 2.5 mg PO DAILY 01/23/2412/12 diclofenac sodium 75 mg 75 mg PO ONCE 01/23/2402/26 tablet,delayed release losartan 100 1 tab PO DAILY 01/23/24 110 12/12 mg-hydrochlorothiazide 25 mg tablet melatonin 10 mg capsule 10 mg PO BEDTIME PRN 4 02/27/24 Previous Rx's ?Medication ?Instructions ?Recorded cock up splint #2 ea 07/27/21 epinephrine 0.3 mg/0.3 mL 0.3 mg (0.3 mL) IM Q4H PRN 0 12/16/21 injection, auto-injector (EpiPen) anaphylaxis #2 ea naproxen 500 mg tablet 500 mg PO BID PRN pain 7 day s #14 01/25/24 tabs gabapentin 300 mg capsule 300 mg PO TID #90 caps 04/08 lidocaine 4 % topical patch 1 patch topical DAILY PRN back 06/15/24 pain #30 ea methocarbamol 500 mg tablet 500 mg PO TID PRN muscle s pasm #90 08/11/24 tabs albuterol sulfate 90 mcg/actuation 2 puff inhalation Q 6H PRN Wheezing 10/07/24 aerosol inhaler (ProAir HFA) 30 days #1 ea fluticasone fur. 200 mcg-umeclid 1 inh inhalation LAURA Y 30 days #1 10/07/24 62.5 mcg-vilant 25 mcg ea inhalat.powder (Trelegy Ellipta) furosemide 40 mg tablet 40 mg PO DAILY 30 days #30 t abs 10/07/24 montelukast 10 mg tablet 10 mg PO DAILY #30 tabs 09/20 0 meclizine 25 mg tablet 25 mg PO TID PRN dizziness # 15 tabs 03/19/25 albuterol sulfate 90 mcg/actuation 2 puff inhalation Q 6H PRN 04/19/25 aerosol inhaler (Ventolin HFA) shortness of breath or wheezing 4 weeks #6.7 grams azithromycin 250 mg tablet See Rx Instructions PO .COM PLEX #6 04/19/25 (Zithromax) tabs ipratropium 0.5 mg-albuterol 3 mg 3 ml inhalation Q6-8 H PRN 04/19/25 (2.5 mg base)/3 mL nebulization shortness of breath #9 0 mL soln prednisone 20 mg tablet 40 mg (2 x 20 mg) PO DAILY 5 days 04/19/25 #10 tabs Allergies Allergy/AdvReac Type Severity Reaction Status Date / Time shrimp Allergy Intermediate SWELLING Verified 04/19/25 11:19 cat dander (cats) Allergy Unknown Unknown Verified 04/19/25 11:19 pollen extracts Allergy Unknown Unknown Verified 04/19/25 11:19 walnut Allergy Unknown Unknown Verified 04/19/25 11:19 bee pollen (bee stings) Allergy Wheezing Verified 04/19/25 11:19 dog dander (dogs) AdvReac Unknown Unknown Verified 04/19/25 11:19 Review of Systems 2 Review of Systems: Yes all other systems are reviewed and are negative [facility] Past Medical History Attestation statement: The following information was validated with the patient. Source: old records reviewed and nursing notes reviewed Medical History Sleep apnea Asthma GERD (gastroesophageal reflux disease) Fibromyalgia Ulcerative colitis (~2004) Surgical History History of colonoscopy History of Social History Social History Household Members: Spouse Housing: Apartment Alcohol intake: never Patient Tobacco Use Status: Never used Tobacco Smoked in Last 30 Days: No Use of substances other than those prescribed or required for medical reasons: No Advance Directives: No Advance Directives Information Provided: No Physical Exam 2 Vital Signs: Vital Signs: Last Vital Signs Temp 99.8 F 04/19/25 11:16 Pulse 101 H 04/19/25 14:49 Resp 18 04/19/25 14:49 BP 143/69 H 04/19/25 14:49 Pulse Ox 95 04/19/25 14:49 O2 Del Method Room Air 04/19/25 14:49 BMI result Body Mass Index 41.6 Tachypneic, tachycardic, low-grade temp 99.8?F General: Well appearing, in no acute distress. Skin: Warm, dry, intact. No rashes or lesions. Head: Normocephalic, atraumatic. EENT: Hearing is intact b/l. Conjunctiva clear. PERRLA. EOM intact. Moist mucous membranes.? Neck: Supple without LAD Cardiac: Chest wall symmetric. RRR Lungs: Increased effort of breathing, no tripoding, congested cough noted, lungs with diffuse expiratory wheezes Abdomen: Soft, non-tender, non-distended. No rebound tenderness or guarding. Positive BS x4. Back: No midline spinous or paraspinal tenderness. No step off deformity. Ext: No pitting edema, no calf tenderness bilaterally Neuro: AOx3. Normal speech. Ambulating with steady gait Course Course Course Narrative: This is a Rapid Medical Exam performed in triage by Evette Doyle PA-C. Full HPI, ROS and PE to be performed by primary ED provider. 54-year-old female with a past medical history of asthma, fibromyalgia, ulcerative colitis, presenting to the ED c/o cough, SOB since last night. has been using inhaler w/o relief. reports CP w/cough PE: 99.8 temp, tachypneic, diffuse expiratory wheeze appreciated Plan: EKG, labs, CXR, viral testing, ED bronch protocol Reevaluation(s) Reevaluation #1: 1403 -- CBC without leukocytosis. No anemia, H&H stable. Chemistry without acute electrolyte abnormality requiring intervention. Random glucose 136, liver function around baseline. Troponin undetectable. EKG is nonischemic. Patient tested positive for influenza A. Negative RSV, COVID. Chest x-ray without infiltrate or consolidation. > patient has recieved updraft, IV Solu-Medrol and IV Mag > will trial ambulatory O2 Reevaluation #2: 2:24 PM 04/19/2025 (Clari Greene DO): Patient is signed out to me pending ambulatory pulse ox. Asthma exacerbation secondary to flu infection. Chest x- ray normal. 3:20 PM 04/19/2025 (Clari Greene DO): Patient was able to ambulate without any issues O2 saturation maintaining at 95%. Shortness of breath has improved. We will plan to discharge home with steroids, Z-Travis, nebulizer cartridges. Albuterol pump will be prescribed to the patient as well. Return precautions given to return to the ER if she has increased shortness of breath despite treatment. Patient agrees and understands this plan all questions were addressed. Medications Administered Discontinued Medications Generic Name Dose Route Start Last Admin Trade Name Freq PRN Reason Stop Dose Admin Albuterol Sulfate 12 puff 04/19/25 11:32 04/19/25 11:34 Albuterol Sulfate 90 Mcg 8 Gm Inhaler INHALE 04/19/25 11:33 12 puff ONCE ONE Administration Magnesium Sulfate 2 gm in 50 mls @ 150 mls/hr 04/19/25 13:23 04/19/25 15:22 Magnesium Sulfate/H2o IV 04/19/25 13:42 Infused ONCE ONE Infusion Methylprednisolone Sodium Succinate 80 mg 04/19/25 12:01 04/19/25 12:09 Methylprednisolone Sod Succ 125 Mg/2 Ml Vial IVPUSH 04/19/25 12:02 80 mg ONCE ONE Administration Medical Decision Making Medical Decision Making [facility] Narrative: 54-year-old female with past medical history significant for asthma, fibromyalgia, UC presents to the ED today for evaluation of cough, shortness of breath since last night. Patient is tachypneic, low-grade temp of 0.8. She has increased work of breathing, no tripoding, diffuse expiratory wheezes throughout, congested cough. Differential diagnosis includes asthma exacerbation, viral syndrome, pneumonia, bronchitis Plan for labs, viral swabs, chest x-ray, breathing treatment, re-evaluation. Differential Diagnosis Differential Diagnoses: The differential diagnosis associated with the presentation includes As above Admission/Observation Consideration of admission/observation: Escalation of care including admission/observation considered Lab Data [facility] Lab Attestation statement: I reviewed the patient's lab results. as above. 04/19/25 11:50 04/19/25 11:50 Labs: Lab Results 04/19/25 Range/Units 11:50 WBC 9.9 (4.8-10.8) X10*3/uL RBC 5.32 (4.20-5.50) X10*6/uL Hgb 14.7 (12.0-16.0) g/dl Hct 45.4 (37.0-47.0) % MCV 85.3 (80.0-98.0) fL MCH 27.6 (27.0-33.0) pg MCHC 32.4 (31.0-35.0) g/dl RDW 13.8 (11.0-16.0) % Plt Count 176 (160-400) X10*3/uL MPV 10.6 (9.4-12.3) fL Immature Gran % (Auto) 0.4 (0.0-0.4) % Neut % (Auto) 78.2 H (45-73) % Lymph % (Auto) 12.8 L (20-40) % [place] % (Auto) 7.7 (2-11) % Eos % (Auto) 0.6 (0-4) % Baso % (Auto) 0.3 (0-2) % Lymph # (Auto) 1.3 (1.2-4.9) X10*3/uL [place] # (Auto) 0.8 (0.1-1.2) X10*3/uL Eos # (Auto) 0.1 (0.0-0.4) X10*3/uL Baso # (Auto) 0.0 (0.0-0.2) X10*3/uL Abs Immat Gran (auto) 0.04 H (0.00-0.03) X10*3/uL Absolute Neuts (auto) 7.7 (2.0-8.3) x10*3/uL Absolute Nucleated RBC 0.000 (0.0-0.012) X10*3/uL Nucleated RBC % (auto) 0.0 (0.0-0.2) /100WBC Sodium 138 (135-145) mmol/L Potassium 3.7 (3.3-5.1) mmol/L Chloride 105 (96-108) mmol/L Carbon Dioxide 24 (22-29) mmol/L Anion Gap 13 (12-20) BUN 12 (9-16) mg/dL Creatinine 0.77 (0.5-1.4) mg/dL Estim Creat Clear Calc 106.1 Estimated GFR > 60 Random Glucose 136 H (60-115) mg/dL Calcium 9.3 (8.4-10.2) mg/dL Total Bilirubin 0.6 (0.0-1.0) mg/dL Direct Bilirubin 0.3 (0.0-0.5) mg/dL AST 46 H (5-31) U/L ALT 38 H (0-31) U/L Alkaline Phosphatase 146 H (39-117) U/L Troponin I High Sens < 2.7 (<3.5-17.0) ng/L Total Protein 7.7 (6.5-8.0) g/dL Albumin 4.3 (3.5-5.0) g/dL Influenza Type A (PCR) POSITIVE A (Negative) Influenza Type B (PCR) NEGATIVE (Negative) RSV RNA Qual (PCR) NEGATIVE (Negative) SARS-CoV-2 RNA (RT-PCR) NEGATIVE (Negative) Independent Interpretation I performed an independent interpretation of an: Plain X-Ray Interpretation: chest xr without infiltrate or consolidation Radiology Impression Discussion of test interpretation with radiology: I have reviewed the radiologist's reading. Radiologist Impression: Procedure(s): XR chest 2V Accession Number(s): [id number] cc: Physician,Unknown ; Evette Doyle~ Reason for Exam: sob EXAMINATION: XR CHEST CLINICAL INFORMATION: sob COMPARISON: None available. TECHNIQUE: 2 views of the chest were obtained. FINDINGS: The lungs are well-expanded and clear acute process. Heart size and pulmonary vascularity is normal. There is moderate spondylosis dorsal spine. No aggressive lytic or sclerotic process seen. XR/XR chest 2V IMPRESSION: Moderate spondylosis dorsal spine. No acute cardiopulmonary process. Electronically signed by: Israel Jin MD 04/19/2025 12:12 PM [facility] External Record Review External record reviewed: Inpatient record Prescription Management I considered prescription management with: Other (steroid) Chronic Conditions Patient?s care impacted by: Other (asthma) Social Determinants Patient?s care significantly limited by Social Determinants of Health including: Other Social Determinant of Health Critical Care Time Critical Care Time Critical Care Time: No Discharge Plan Discharge Clinical Impression: Flu Asthma exacerbation Qualifiers: Asthma severity: moderate Asthma persistence: unspecified Qualified Code(s): J 45.901 - Unspecified asthma with (acute) exacerbation Patient Disposition: Home, Self-Care Instructions: Asthma (ED) Additional Instructions: Follow up with your primary care doctor in a week to make sure you are feeling better. Prescriptions: New albuterol sulfate [Ventolin HFA] 90 mcg/actuation HFA aerosol inhaler 2 puff inhalation Q6H PRN (Reason: shortness of breath or wheezing) 28 Days Qty: 6.7 0RF ipratropium-albuterol 0.5 mg-3 mg(2.5 mg base)/3 mL solution for nebulization 3 ml inhalation Q6-8H PRN (Reason: shortness of breath) Qty: 90 0RF azithromycin [Zithromax] 250 mg tablet See Rx Instructions .ROUTE .COMPLEX Qty: 6 0RF Rx Instructions: For 250 mg dose pack: take 500 mg today (day 1), then 250 mg for 4 days (days 2-5) prednisone 20 mg tablet 40 mg PO DAILY 5 Days Qty: 10 0RF No Action methocarbamol 500 mg tablet 500 mg PO TID PRN (Reason: muscle spasm) Qty: 90 1RF Rx Instructions: No driving while taking this medication. Do no take with alcohol or other BUSINESS RELATIONS MANAGER Depressants Trelegy Ellipta 200-62.5-25 mcg blister with device 1 inh inhalation DAILY 30 Days Qty: 1 6RF furosemide 40 mg tablet 40 mg PO DAILY 30 Days Qty: 30 6RF albuterol sulfate [ProAir HFA] 90 mcg/actuation HFA aerosol inhaler 2 puff inhalation Q6H PRN (Reason: Wheezing) 30 Days Qty: 1 6RF montelukast 10 mg tablet 10 mg PO DAILY Qty: 30 6RF epinephrine [EpiPen] 0.3 mg/0.3 mL auto-injector 0.3 mg IM Q4H PRN (Reason: anaphylaxis) Qty: 2 0RF naproxen 500 mg tablet 500 mg PO BID PRN (Reason: pain) 7 Days Qty: 14 0RF lidocaine 4 % adhesive patch,medicated 1 patch topical DAILY PRN (Reason: back pain) Qty: 30 0RF meclizine 25 mg tablet 25 mg PO TID PRN (Reason: dizziness) Qty: 15 0RF (DME) cock up splint See Rx Instructions .Route .MEDSUPPLY Qty: 2 0RF Rx Instructions: As directed. Wear at night losartan-hydrochlorothiazide 100-25 mg tablet 1 tab PO DAILY albuterol sulfate [Ventolin HFA] 90 mcg/actuation HFA aerosol inhaler inhalation amlodipine 2.5 mg tablet 2.5 mg PO DAILY diclofenac sodium 75 mg tablet,delayed release (DR/EC) 75 mg PO ONCE melatonin 10 mg capsule 10 mg PO BEDTIME PRN gabapentin 300 mg capsule 300 mg PO TID Qty: 90 1RF Print Language: Fijian
--- NOTE | 2025-04-19 11:19 | ECG_ITS ---
Test Reason : sob Blood Pressure : */* mmHG Vent. Rate : 114 BPM Atrial Rate : 114 BPM P-R Int : 146 ms QRS Dur : 104 ms QT Int : 326 ms P-R-T Axes : 65 66 65 degrees QTcB Int : 449 ms Sinus tachycardia Incomplete right bundle branch block Septal infarct , age undetermined Abnormal ECG When compared with ECG of 19-Mar-2025 03:29, Vent. rate has increased by 49 bpm Incomplete right bundle branch block is now Present Referred By: Evette Doyle Electronically Signed By: HALLEY PIMENTEL
[2025-04-19] MEDS: Albuterol Sulfate 90 MCG 8 GM INHALER 12 PUFF INHALE (11:34)
[2025-04-19 11:35] VITALS: PULSE 106; RESP 26; O2SAT 96
[2025-04-19 11:57] LABS: MANUAL DIFF FLAG NO
[2025-04-19 11:59] LABS: Hematocrit 45.4 % (37.0-47.0); Hemoglobin 14.7 g/dl (12.0-16.0); Imm Gran Abs Auto 0.04 X10*3/uL (0.00-0.03); Imm Gran Pct Auto 0.4 % (0.0-0.4); Lymphocytes Absolute Auto 1.3 X10*3/uL (1.2-4.9); Mean Corpuscular HGB Conc 32.4 g/dl (31.0-35.0); Mean Corpuscular Hemoglobin 27.6 pg (27.0-33.0); Mean Corpuscular Volume 85.3 fL (80.0-98.0); NRBC Abs Auto 0.000 X10*3/uL (0.0-0.012); NRBC Pct Auto 0.0 /100WBC (0.0-0.2); Platelet Count 176 X10*3/uL (160-400); Red Blood Count 5.32 X10*6/uL (4.20-5.50); White Blood Count 9.9 X10*3/uL (4.8-10.8)
[2025-04-19 12:11] VITALS: PULSE 110; RESP 22; O2SAT 97
[2025-04-19 12:16] LABS: Alanine Aminotransferase 38 U/L (0-31); Albumin Level 4.3 g/dL (3.5-5.0); Alkaline Phosphatase 146 U/L (39-117); Anion Gap 13 (12-20); Aspartate Amino Transferase 46 U/L (5-31); Blood Urea Nitrogen 12 mg/dL (9-16); Calcium 9.3 mg/dL (8.4-10.2); Carbon Dioxide 24 mmol/L (22-29); Chloride 105 mmol/L (96-108); Creatinine Clr Calc Pharmacy 106.1; Estimated Glomerular Filt Rate > 60; Potassium 3.7 mmol/L (3.3-5.1); Sodium 138 mmol/L (135-145); Total Protein 7.7 g/dL (6.5-8.0)
[2025-04-19 12:22] LABS: Troponin-I High Sensitivity < 2.7 ng/L (<3.5-17.0)
[2025-04-19 12:36] LABS: Resp Syncy Virus RNA Qual PCR NEGATIVE (Negative); SARS COV2 PCR INHOUSE NEGATIVE (Negative)
[2025-04-19 14:28] VITALS: BP 143/69; PULSE 98; RESP 18; O2SAT 95
[2025-04-19] MEDS: Magnesium Sulfate/H2O 2 GM/50 ML PIGGYBACK IV (14:28)
[2025-04-19 14:49] VITALS: BP 143/69; PULSE 101; RESP 18; O2SAT 95
--- NOTE | 2025-04-19 15:05 | MHC.EDTECH ---
Ambulated the patient with O2 saturation monitoring. 95%r/a. The patient did c/o dizziness upon exertion. O2 sats maintained 95%. Her heart rate reached 124bpm while walking. RN notified.
[2025-04-19 15:58] VITALS: BP 143/69; PULSE 101; RESP 18; TEMP 36.8; O2SAT 95
--- OUTSIDE RECORDS SUMMARY | 2025-04-19 16:12 | XMS_ITS | Patient Health Record ---
Author Organization [facility] Address [address] [place] [address] Care Team Providers Care System Trainer Name Role Phone Prerna Bravo Primary Care Provider Kenney Calvin [phone] Allergies Allergen (clinical drug ingredient) Drug/Non Drug Allergy documented on EMR Reaction Allergy Type Onset Date Status bees (uncoded) Unknown Allergy Activ e cats (uncoded) Unknown Allergy Activ e Dust dust (uncoded) Unknown Allergy Activ e oak trees (uncoded) Unknown Allergy Active Pollen pollen (uncoded) Unknown Allergy Act jluis Reason For Referral No Information Medications Medication [...] Marital status: 27 year re lationship Occupation: [employer] Section Notes: Does [...] Problem Status W/U Status Risk Notes Problem Screening for malignant neoplasm of colon (901799189) Encounter for screening for malignant neoplasm of colon (Z12.11) Active confirmed Problem Early satiety (665152618) Early satiety (R68.81) Active confirmed Problem Long-term current use of drug therapy (096474347) Encounter for alf current azathioprine therapy (Z79.899) Active confirmed Problem Chronic ulcerative rectosigmoiditis (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) 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) Active confirmed Problem Esophageal reflux finding (636634709) Gastroesophageal reflux (K21.9) Active confirmed Problem Ulcerative colitis (35452154) Ulcerative colitis (K51.90) Active confirmed Problem Chronic ulcerative rectosigmoiditis (32349747) 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) Active confirmed Problem Gastroesophageal reflux disease (604858695) Gastroesophageal reflux disease, unspecified whether esophagitis present [...] Insured Coverage Start Date Coverage End Date [facility] [address] [address] [place], [place] [id number] MANSOOR ADKINS Self - patient is the insured MEDICAID OF [employer] [facility] [address] [place] [address] [phone] [id number] MANSOOR ADKINS Self - patient is the insured Medical (General) History Medical History History ICD Code 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
--- OUTSIDE RECORDS SUMMARY | 2025-04-19 16:12 | XMS_ITS | Clinical Summary ---
Author Organization [facility] Address [address] [place] [id number] Care Team Providers Care Program Project Analyst Name Role Phone System, Provider Not In [...] Influenza Vaccine 11/19/2024 COVID-19 Vaccine (1 - 2024- season) 2024 RSV Vaccine 50 years and old er and Patients (1 - 1-dose 75+ series) 12/03/2046 Insurance MEDICAID OUT OF STATE [facility] [place] Care Teams Program Project Analyst Relationship Specialty Start Date End Date System, Provider Not In PCP - General 07/26/22
== END 2025-04-19 15:58 | disposition home or self-care (01) ==
PROVIDERS: Physician Assistant; Emergency Provider Student in an Organized Health Care Education/Training Program
DX: J10.1 Influenza due to other identified influenza virus with other respiratory manifestations (principal); J45.901 Unspecified asthma with (acute) exacerbation; R05.9 Cough, unspecified; R06.02 Shortness of breath; Z03.818 Encounter for observation for suspected exposure to other biological agents ruled out
CPT/HCPCS: 36415; 71046; 80048; 80076; 84484; 85025; 87637; 93005; 94640; 96365; 96375; 99284; 99285; J2919; J3475

== ENCOUNTER → 2025-04-19 11:17 | Outpatient (BNV) | payer OTHER, SELFPAY | PROVIDERS: Emergency Provider Emergency Medicine; Visit Provider Radiology Diagnostic Radiology | DX: R06.02 Shortness of breath (principal); M47.814 Spondylosis without myelopathy or radiculopathy, thoracic region | CPT/HCPCS: 71046 ==

== ENCOUNTER → 2025-04-19 11:19 | Outpatient (BNV) | payer OTHER, SELFPAY | PROVIDERS: Emergency Provider Student in an Organized Health Care Education/Training Program; Visit Provider Internal Medicine | DX: I45.10 Unspecified right bundle-branch block (principal); R00.0 Tachycardia, unspecified | CPT/HCPCS: 93010 ==